=== PATIENT | female | born 1960 | race Caucasian/White ===

== ENCOUNTER → 2020-04-26 10:16 | Outpatient (BNVA) | payer BC, SELFPAY | PROVIDERS: PCP Hospitalist; Visit Provider Student in an Organized Health Care Education/Training Program | DX: Z13.89 Encounter for screening for other disorder (principal) ==

== ENCOUNTER → 2020-05-09 09:51 | Outpatient (BNVA) | payer BC, SELFPAY | PROVIDERS: PCP Hospitalist; Visit Provider Anesthesiology | DX: Z76.89 Persons encountering health services in other specified circumstances (principal) ==

== ENCOUNTER 2020-05-30 12:48 | Outpatient (REF) | payer BC, SELFPAY ==
--- NOTE | 2020-05-30 | US_ITS ---
EXAMINATION: US ABDOMEN COMPLETE CLINICAL INFORMATION: Chronic hepatitis. COMPARISON: Ultrasound abdomen complete 03/03/2019 TECHNIQUE: -time imaging of the abdominal viscera. FINDINGS: PANCREAS: Normal. ABDOMINAL AORTA: The proximal, mid, and distal segments are normal in caliber. INFERIOR VENA CAVA: Visualized portions are normal. LIVER: The liver is normal in size. The liver contour is normal. There is no intrahepatic biliary duct dilatation seen.There is increased liver echogenicity. There is anechoic cyst with septations and calcification in the right hepatic lobe measuring 1.6 x 1.2 x 1.6 cm. No additional lesions seen. GALLBLADDER: Surgically absent. COMMON BILE DUCT: Normal in caliber measuring 0.7 cm in diameter. RIGHT KIDNEY: No hydronephrosis. No renal calculi or focal parenchymal lesions. The kidney measures 10.3 cm in maximum dimension. There is a dromedary hump along the lateral cortex at LEFT KIDNEY: Normal. No hydronephrosis. No renal calculi or focal parenchymal lesions. The kidney measures 9.9 cm in maximum dimension. SPLEEN: Normal. The spleen measures 11.2 cm in maximum dimension. FREE FLUID: None. US/US abdomen complete IMPRESSION: Right hepatic lobe 1.6 cm complex cyst. It is unchanged to previous ultrasound exam 03/03/2019. Diffuse hepatic steatosis. Rest of the abdominal ultrasound is unremarkable.
[2020-05-30 14:14] LABS: MANUAL DIFF FLAG NO
[2020-05-30 14:16] LABS: Basophils Absolute Auto 0.1 X10*3/uL (0.0-0.2); Basophils Percent Auto 0.5 % (0-2); Eosinophils Absolute Auto 0.3 X10*3/uL (0.0-0.4); Eosinophils Percent Auto 2.1 % (0-4); Hematocrit 42.1 % (37-47); Hemoglobin 13.7 g/dl (12.0-16.0); Imm Gran Abs Auto 0.04 X10*3/uL (0.00-0.03); Imm Gran Pct Auto 0.3 % (0.0-0.4); Mean Corpuscular HGB Conc 32.5 g/dl (31.0-35.0); Mean Corpuscular Hemoglobin 31.2 pg (27.0-33.0); Mean Corpuscular Volume 95.9 fL (80-98); Mean Platelet Volume 10.5 fL (9.4-12.3); Monocytes Absolute Auto 0.6 X10*3/uL (0.1-1.2); Monocytes Percent Auto 4.4 % (2-11); Neutrophils Absolute Auto 7.6 X10*3/uL (2.0-8.3); Neutrophils Percent Auto 60.7 % (45-73); Platelet Count 276 X10*3/uL (160-400); Red Blood Count 4.39 X10*6/uL (4.20-5.50); Red Cell Distribution Width 13.5 % (11.0-16.0); White Blood Count 12.6 X10*3/uL (4.8-10.8)
[2020-05-30 14:51] LABS: Alanine Aminotransferase 10 U/L (0-31); Albumin Level 4.7 g/dL (3.5-5.0); Alkaline Phosphatase 74 U/L (39-117); Aspartate Amino Transferase 11 U/L (5-31); Bilirubin Direct 0.2 mg/dL (0.0-0.5); Bilirubin Total 0.4 mg/dL (0.0-1.0); Total Protein 7.5 g/dL (6.5-8.0)
[2020-05-31 11:48] LABS: Alpha Fetoprotein 3.5 ng/mL
[2020-07-18 12:07] LABS: HCV Log PCR <1.18 NOT DETECTED; HepC Viral Load <15 NOT DETECTED
== END 2020-05-30 12:49 | disposition home or self-care (01) ==
LOC: HO.US 12:48
PROVIDERS: Visit Provider Internal Medicine
DX: K73.9 Chronic hepatitis, unspecified (principal); Z87.19 Personal history of other diseases of the digestive system
CPT/HCPCS: 36415; 76700; 80076; 82105; 85025; 87522

== ENCOUNTER 2020-06-12 10:05 | Outpatient (RCR) | payer BC, SELFPAY | END 2020-06-12 13:59 | disposition home or self-care (01) | LOC: HO.PAOS 10:05 | PROVIDERS: Referring Provider Anesthesiology; Visit Provider Counselor Mental Health | DX: F31.81 Bipolar II disorder (principal) ==

== ENCOUNTER → 2020-07-16 09:49 | Outpatient (BNVA) | payer BC, SELFPAY | PROVIDERS: PCP Physician Assistant; Visit Provider Internal Medicine ==

== ENCOUNTER 2020-07-16 10:52 | Outpatient (REF) | payer BC, SELFPAY ==
[2020-07-16 14:48] LABS: Albumin Level 4.5 g/dL (3.5-5.0); Calcium 9.6 mg/dL (8.4-10.2); Phosphorus 3.8 mg/dL (2.7-4.5)
[2020-07-16 15:03] LABS: Free T4 (Free Thyroxine) 1.11 ng/dL (0.71-1.85); Thyroid Stimulating Hormone 1.65 uIU/mL (0.32-4.0); Vitamin D 25-OH Total 14.6 ng/mL (>30)
[2020-07-16 15:32] LABS: Vitamin B12 219 pg/mL (200-900)
[2020-07-18 10:36] LABS: PTHI 52 pg/mL (14-64)
== END 2020-07-16 10:53 | disposition home or self-care (01) ==
LOC: HO.10HDL 10:52
PROVIDERS: Visit Provider Internal Medicine
DX: E21.3 Hyperparathyroidism, unspecified (principal); E03.9 Hypothyroidism, unspecified; E04.2 Nontoxic multinodular goiter; E55.9 Vitamin D deficiency, unspecified
CPT/HCPCS: 36415; 82040; 82306; 82310; 82607; 83970; 84100; 84439; 84443

== ENCOUNTER 2020-07-24 16:27 | Outpatient (REF) | payer BC, SELFPAY ==
--- NOTE | ~2020-07-24 | US_ITS ---
EXAMINATION: US THYROID CLINICAL INFORMATION: Nontoxic multinodular goiter. COMPARISON: Thyroid ultrasound 01/04/2020. TECHNIQUE: Linear transducer michaels-scale and color Doppler examination with attention to the region of the thyroid. FINDINGS: SIZE: Measurements of the thyroid lobes and nodules are given in sagittal, anteroposterior and transverse dimensions respectively. Right Thyroid Lobe: 2.0 x 0.7 x 0.8 cm, volume 0.6 mL. Previously 3.0 x 0.9 x 0.4 cm, volume 0.6 mL. Parenchyma: The gland echotexture is heterogeneous. Thyroid vascularity is normal. Left Thyroid Lobe: 3.6 x 1.2 x 0.9 cm, volume 2.0 mL. Previously 2.7 x 0.8 x 0.5 cm, volume 0.6 mL. Parenchyma: The gland echotexture is heterogeneous. Thyroid vascularity is normal. Isthmus: 0.1 cm in maximum AP dimension. Previously 0.1 cm. Estimated total number of nodules greater than or equal to 1 cm: 0. Display Fabrication Supervisor nodules are described as follows: 1. Location: Right mid pole/medial. Size: 0.3 x 0.1 x 0.1 cm, volume 0.001 mL. Previously: 0.8 x 0.3 x 0.4 cm, volume 0.05 mL. Nodule characteristics: Composition: Solid (2). Echogenicity: Very hypoechoic (3). Shape: Not taller than wide (0). Margins: Smooth (0). Echogenic Foci: None (0). ACR TI-RADS total points: 5 ACR TI-RADS category: 4 Significant change in size (>/= 20% in 2 dimensions and minimal increase of 2 mm or 50% or greater increase in volume): Decrease in the size of the volume. Change in features: None. Change in ACR TI-RADS risk category: None NODES: No lymphadenopathy is seen in the tissue surrounding the thyroid gland. US/US thyroid IMPRESSION: Decrease in the size of the right thyroid nodule. Non suspicious nodule. Small thyroid gland. ACR TI-RADS RECOMMENDATION REFERENCE: Ultrasound-guided fine-needle aspiration, followup ultrasound, no further follow up. TR1 (0 point) and TR 2 (2 points): No FNA or follow up TR3 (3 points): FNA if more than or equal to 2.5 cm in maximum dimension, followup ultrasound in 1, 3 and 5 years if 1.5 to 2.4 cm in maximum dimension. TR4 (4-6 points): FNA if more than or equal to 1.5 cm in maximum dimension, followup ultrasound in 1, 2, 3 and 5 years if 1 to 1.4 cm in maximum dimension. TR5 (more than or equal to 7 points): FNA if more than or equal to 1 cm in maximum dimension, followup ultrasound every year for 5 years if 0.5 to 0.9 cm in maximum dimension. TR3, TR4 or TR5 nodules that are below the size threshold for follow up receive no follow up.
== END 2020-07-24 16:28 | disposition home or self-care (01) ==
LOC: HO.US 16:27
PROVIDERS: Visit Provider Internal Medicine
DX: E04.2 Nontoxic multinodular goiter (principal)
CPT/HCPCS: 76536

== ENCOUNTER 2020-08-03 09:01 | Day surgery (SDC) | payer BC, SELFPAY ==
[2020-07-27 14:56] VITALS: BMI 26.2
--- NOTE | 2020-08-02 10:21 | HO.ANESPROP2 ---
Documented by User: Ruthann Betsy 08/02/20 10:22 HPI - Anesthesia Eval Consult details Narrative: 60yo F for Peripheral Nerve Stimulator Trial, Sacroiliac Joint Innervation *multiple med allergies* PMFSH Active Problems Active Problems: All Active Problems (Updated 07/16/20 @ 10:09 by Anjelica Mclean DO) Hypothyroidism (Acute) Screening for diabetes mellitus (DM) (Acute) Screening for hyperlipidemia (Acute) Bilateral bunions (Acute) Hyperparathyroidism (Acute) Vitamin D deficiency (Acute) Multinodular thyroid (Acute) Sacroiliac joint dysfunction (Acute) Chronic pain syndrome (Acute) Sacroiliitis, not elsewhere classified (Acute) AXEL positive (Acute) Past Medical History Medical History AXEL positive Chronic pain syndrome Hyperparathyroidism Multinodular thyroid Sacroiliac joint dysfunction Sacroiliitis, not elsewhere classified Vitamin D deficiency Family History Family History Father Asthma CVD (cardiovascular disease) Stroke Diabetes Mother Healthy adult Sister Lupus Surgical History Surgical History History of appendectomy History of section History of cholecystectomy History of excision of pilonidal cyst History of foot surgery History of laparoscopy History of tonsillectomy Hx of prior ablation treatment Social History Social History Household Members: Family Alcohol intake: never Smoking Status: Former smoker Advance Directives Information Provided: No Meds Allergies Allergy/AdvReac Type Severity Reaction Status Date / Time Corticosteroids Allergy Severe 'SI' TO Verified 07/16/20 10:05 (Glucocorticoids) STEROIDS. THIS IS FROM UNCODED ALLERGIES Opioids - Morphine Analogues Allergy Intermediate 'HIVES' Verified 07/16/20 10:05 THIS IS FROM UNCODED ALLERGIES oxcarbazepine Allergy Intermediate REDNESS Verified 07/16/20 10:05 [From TRILEPTAL] acetaminophen [Tylenol] Allergy Unknown itching Verified 07/16/20 10:05 aspirin Allergy Unknown stomach Verified 07/16/20 10:05 irritant codeine Allergy Unknown Itching Verified 07/16/20 10:05 NSAIDS (Non-Steroidal Allergy Unknown upset Verified 07/16/20 10:05 Anti-Inflamma stomach opioids Allergy Unknown itching Verified 07/16/20 10:05 ibuprofen AdvReac Unknown Unknown Verified 07/16/20 10:05 prednisone AdvReac Unknown Unknown Verified 07/16/20 10:05 Home Medications Medication Instructions Recorded Confirmed Last Taken Type acetaminophen 650 mg 650 mg PO Q12H 04/26/20 07/16/20 Unknown History tablet,extended release cholecalciferol (vitamin D3) 50 50 mcg PO DAILY 04/26/20 07/16/20 Unknown History mcg (2,000 unit) capsule cyclobenzaprine 10 mg tablet 10 mg PO TID 04/26/20 07/16/20 Unknown History lithium carbonate 450 mg 450 mg PO TID tab 04/26/20 07/27/20 08/03/20 History tablet,extended release loperamide 2 mg capsule 2 mg PO Q6H PRN 04/26/20 07/16/20 Unknown History Exam Exam Date and Time: August 02, 2020 1021 Height,Weight and Vital Signs: Height 5 ft 1 in Weight 63.049 kg Assessment and Plan Assessment Anesthesia Assessment: Chart Reviewed Documented by User: Khloe Rascon 08/03/20 09:15 PMFSH Past Medical History Medical History AXEL positive Chronic pain syndrome Hyperparathyroidism Multinodular thyroid Sacroiliac joint dysfunction Sacroiliitis, not elsewhere classified Vitamin D deficiency Family History Family History Father Asthma CVD (cardiovascular disease) Stroke Diabetes Mother Healthy adult Sister Lupus Surgical History Surgical History History of appendectomy History of section History of cholecystectomy History of excision of pilonidal cyst History of foot surgery History of laparoscopy History of tonsillectomy Hx of prior ablation treatment Social History Social History Household Members: Family Alcohol intake: never Smoking Status: Former smoker Advance Directives Information Provided: No Meds Allergies Allergy/AdvReac Type Severity Reaction Status Date / Time Corticosteroids Allergy Severe 'SI' TO Verified 07/16/20 10:05 (Glucocorticoids) STEROIDS. THIS IS FROM UNCODED ALLERGIES Opioids - Morphine Analogues Allergy Intermediate 'HIVES' Verified 07/16/20 10:05 THIS IS FROM UNCODED ALLERGIES oxcarbazepine Allergy Intermediate REDNESS Verified 07/16/20 10:05 [From TRILEPTAL] acetaminophen [Tylenol] Allergy Unknown itching Verified 07/16/20 10:05 aspirin Allergy Unknown stomach Verified 07/16/20 10:05 irritant codeine Allergy Unknown Itching Verified 07/16/20 10:05 NSAIDS (Non-Steroidal Allergy Unknown upset Verified 07/16/20 10:05 Anti-Inflamma stomach opioids Allergy Unknown itching Verified 07/16/20 10:05 ibuprofen AdvReac Unknown Unknown Verified 07/16/20 10:05 prednisone AdvReac Unknown Unknown Verified 07/16/20 10:05 Home Medications Medication Instructions Recorded Confirmed Last Taken Type acetaminophen 650 mg 650 mg PO Q12H 04/26/20 07/16/20 Unknown History tablet,extended release cholecalciferol (vitamin D3) 50 50 mcg PO DAILY 04/26/20 07/16/20 Unknown History mcg (2,000 unit) capsule cyclobenzaprine 10 mg tablet 10 mg PO TID 04/26/20 07/16/20 Unknown History lithium carbonate 450 mg 450 mg PO TID tab 04/26/20 07/27/20 08/03/20 History tablet,extended release loperamide 2 mg capsule 2 mg PO Q6H PRN 04/26/20 07/16/20 Unknown History Exam Airway Mallampati Class: II TM Dist: >3cm Neck ROM: Full Heart: RRR Lungs: CTA
--- NOTE | ~2020-08-03 | FL_ITS ---
EXAMINATION: XR FLUOROSCOPY WITH IMAGES CLINICAL INFORMATION: Peripheral nerve stimulator trial, sacroiliac COMPARISON: [facility]ACQU[facility] 05/04/2019 TECHNIQUE: Fluoroscopy performed by Dr. René Marie. Fluoroscopy time: 0.7 minutes DAP: 4.14 Gycm2 Images: 2 FINDINGS: There is a stimulator electrode vertically oriented overlying the right sacrum, just lateral to the foramina, tip at S3. FL/FL guidance in OR IMPRESSION: Fluoroscopy for pain management procedure.
[2020-08-03 09:10] VITALS: BP 118/71; PULSE 77; RESP 18; TEMP 36.1; O2SAT 98
[2020-08-03] MEDS: Lactated Ringers 1,000 ML 100 ML IVCONT (09:34)
--- NOTE | 2020-08-03 10:10 | PC.NURSE ---
pt ambulated to br steady gait nad
--- NOTE | 2020-08-03 10:11 | MHC.SHP ---
Pre-Procedural Eval Section A The patient is an INPATIENT: No Changes since office visit: Yes Patient answered all questions The History & Physical has been completed within 30 days and I have reviewed it.: No Section B Chief Complaint: sacroliitis Details of Present Illness: sacroiliitis Relevant Family History (Specify if Yes): No Relevant Social History: None Present Medications: see Short Stay [facility] assessment Medical History: No relevant PMH History of Previous Operations: No relevant previous surgery Allergies: Allergies Allergy/AdvReac Type Severity Reaction Status Date / Time Corticosteroids Allergy Severe 'SI' TO Verified 07/16/20 10:05 (Glucocorticoids) STEROIDS. THIS IS FROM UNCODED ALLERGIES Opioids - Morphine Analogues Allergy Intermediate 'HIVES' Verified 07/16/20 10:05 THIS IS FROM UNCODED ALLERGIES oxcarbazepine Allergy Intermediate REDNESS Verified 07/16/20 10:05 [From TRILEPTAL] acetaminophen [Tylenol] Allergy Unknown itching Verified 07/16/20 10:05 aspirin Allergy Unknown stomach Verified 07/16/20 10:05 irritant codeine Allergy Unknown Itching Verified 07/16/20 10:05 NSAIDS (Non-Steroidal Allergy Unknown upset Verified 07/16/20 10:05 Anti-Inflamma stomach opioids Allergy Unknown itching Verified 07/16/20 10:05 ibuprofen AdvReac Unknown Unknown Verified 07/16/20 10:05 prednisone AdvReac Unknown Unknown Verified 07/16/20 10:05 Review of Systems Sugical H&P ROS: Negative: Constitution, Cardiovascular, Respiratory, Neurological, Psychiatric, Hem-Onc, Allergic/Immunologic, Gastrointestinal, Genitourinary, Musculoskeletal, Integumentary, Endocrine and Eyes/Ears/Nose/Throat Exam Surgical H&P Exam: Normal: HEENT, Normal: Heart, Normal: Lungs, Normal: Extremities, Normal: Abdomen, Normal: Skin and Normal: Neurological Plan Diagnosis/Plan: Unchanged I have reviewed the history and physical and performed a pertinent physical examination on my patient. No changes have occurred unless specified.
[2020-08-03 11:20] VITALS: BP 106/78; PULSE 65; RESP 14; TEMP 36.7; O2SAT 95
--- NOTE | 2020-08-03 11:21 | PM.OP ---
Brief Operative Note Date of Service: 08/03/20 Pre-op diagnosis: sacroiliitis Post-op diagnosis: same Procedure: stimulation stimwave right Sacroiliac joint innervation. Implants: none Surgeon: René Marie MD Anesthesia: MAC Estimated blood loss (mL): 3 Condition: stable Disposition: PACU
--- NOTE | 2020-08-03 11:25 | P.OP_ITS ---
Operative Note Operative Note Date of Service: 08/03/20 Narrative: Ms. Estevez is very pleasant 60 years old lady who came to OR for the trial of sacroiliac joint innervation stimulation- stimwave stimulation. After obtaining informed consent patient was brought to the operating room, She was positioned prone on operating table . [employer] monitors were applied and patient was sedated. Time-out was performed delineating correct site, side, the nature of the procedure, patient's allergy, preoperative antibiotic All operating room staff was participating in OR time-out procedure. She receiced cefasolin 1 g IV approximately 20 minutes before the procedure. Patient's lower back and buttocks were prepped with ChloraPrep and draped with sterile full body fenestrated drape. Sterilely draped C-arm was brought over the operating field and picture of the right sacroiliac joint was demonstrated on the screen. Connection of superior articular process of S1 with sacral alae was chosen as the 1st target of needle insertion. The target projection to the skin was injected with mixture of local anesthetic lidocaine 2% mixed with bupivacaine 0.5%. Using 11 blade scalpel small sangeeta was made on the skin. After that 16 gauge introducer needle was inserted into the sangeeta and under x- ray vision was advanced along right side side side the sacroiliac joint projection on anterior posterior and lateral views. The needle was inserted and advanced in close contact with the sacral bone. The needle remained medial to sacroiliac joint and lateral to the sacral foramina. When needle reached S1 sacral foramina guitar wire was introduced into the needle and advanced until S2-S3 position on the right. Lateral view performed demonstrating position of the introducer outside of the pelvis. After that the guitar wire was removed and stimulating electrode was inserted and advanced into the position S2-S3 foramina is on the right. After that the staring guidewire was removed from the stimulating lead and stimulating copper wire was inserted in. The Mastisol glue and derma teixeira were used to prep the skin and Steri-Strips were used to tape the lead to the skin. The antenna was formed on the skin surface of the back Sterile dressing was applied, stimulating antenna was taped to the stimulating wire. The patient was tolerating procedure well she was taken outside of the operating room to recovery room where she recovered uneventfully. She went home without immediate complications.
[2020-08-03 11:35] VITALS: BP 108/70; PULSE 68; RESP 17; TEMP 36.7; O2SAT 100
[2020-08-03 11:53] VITALS: BP 127/70; PULSE 61; RESP 16; TEMP 36.7; O2SAT 99
== END 2020-08-03 12:27 | disposition home or self-care (01) ==
PROVIDERS: PCP Physician Assistant; Visit Provider Anesthesiology
PROC: (CPT 64555; principal; 2020-08-03 10:30)
DX: M46.1 Sacroiliitis, not elsewhere classified (principal); G89.4 Chronic pain syndrome; M53.3 Sacrococcygeal disorders, not elsewhere classified; Z79.899 Other long term (current) drug therapy; Z88.8 Allergy status to other drugs, medicaments and biological substances; Z87.891 Personal history of nicotine dependence
CPT/HCPCS: 64555; C1897; J0690

== ENCOUNTER → 2020-08-09 11:01 | Outpatient (BNVA) | payer BC, SELFPAY | PROVIDERS: PCP Physician Assistant; Visit Provider Anesthesiology ==

== ENCOUNTER 2020-10-23 08:36 | Outpatient (REF) | payer BC, SELFPAY ==
[2020-10-23 09:57] LABS: MANUAL DIFF FLAG NO
[2020-10-23 10:01] LABS: Basophils Absolute Auto 0.1 X10*3/uL (0.0-0.2); Basophils Percent Auto 0.6 % (0-2); Eosinophils Absolute Auto 0.2 X10*3/uL (0.0-0.4); Eosinophils Percent Auto 1.7 % (0-4); Hematocrit 39.8 % (37-47); Hemoglobin 12.9 g/dl (12.0-16.0); Imm Gran Abs Auto 0.03 X10*3/uL (0.00-0.03); Imm Gran Pct Auto 0.3 % (0.0-0.4); Lymphocytes Absolute Auto 2.7 X10*3/uL (1.2-4.9); Lymphocytes Percent Auto 27.2 % (20-40); Mean Corpuscular HGB Conc 32.4 g/dl (31.0-35.0); Mean Corpuscular Hemoglobin 30.8 pg (27.0-33.0); Mean Platelet Volume 10.5 fL (9.4-12.3); Monocytes Absolute Auto 0.4 X10*3/uL (0.1-1.2); Monocytes Percent Auto 3.7 % (2-11); Neutrophils Absolute Auto 6.5 X10*3/uL (2.0-8.3); Neutrophils Percent Auto 66.5 % (45-73); Platelet Count 300 X10*3/uL (160-400); Red Blood Count 4.19 X10*6/uL (4.20-5.50); Red Cell Distribution Width 13.5 % (11.0-16.0); White Blood Count 9.8 X10*3/uL (4.8-10.8)
[2020-10-23 10:33] LABS: Alanine Aminotransferase < 6 U/L (0-31); Albumin Level 4.3 g/dL (3.5-5.0); Alkaline Phosphatase 72 U/L (39-117); Anion Gap 11 (12-20); Aspartate Amino Transferase 10 U/L (5-31); Bilirubin Total 0.5 mg/dL (0.0-1.0); Blood Urea Nitrogen 15 mg/dL (9-16); C Reactive Protein 0.15 mg/dL (< or = 0.50); Carbon Dioxide 25 mmol/L (22-29); Chloride 108 mmol/L (96-108); Estimated Glomerular Filt Rate > 60; Glucose Random 102 mg/dL (60-115); Potassium 4.6 mmol/L (3.3-5.1); Sodium 139 mmol/L (135-145); Total Protein 6.9 g/dL (6.5-8.0)
[2020-10-23 10:55] LABS: Erythrocyte Sedimentation Rate 12 MM/HR (0-20)
[2020-10-23 11:01] LABS: Glucose Urine UA NEG (NEG); Leukocyte Esterase Urine NEG (NEG); Nitrite Urine NEG (NEG); PH 5.5 (5.0-8.0); Urine Blood NEG (NEG); Urine Ketones NEG (NEG); Urine Protein NEG (NEG-TRACE)
[2020-10-23 11:02] LABS: Appearance Urine HAZY; Color Urine YELLOW
[2020-10-23 11:14] LABS: Bacteria Urine TRACE /LPF; RBC Urine 0-2 /HPF (0); Squamous Epithelial Cell Urine 1+ /LPF; WBC Urine 0-2 /HPF (0-4)
[2020-10-24 11:37] LABS: Complement C3 83 mg/dL (83-193)
[2020-10-24 13:41] LABS: Anti DNA DS Antibody 4 IU/mL; SM/Ribonucleoprotein Ab <1.0 NEG AI (<1.0 NEG); Smith Protein <1.0 NEG AI (<1.0 NEG)
== END 2020-10-23 08:37 | disposition home or self-care (01) ==
LOC: HO.LAB 08:36
PROVIDERS: PCP Physician Assistant; Visit Provider Student in an Organized Health Care Education/Training Program
DX: R76.8 Other specified abnormal immunological findings in serum (principal); M19.041 Primary osteoarthritis, right hand; M19.042 Primary osteoarthritis, left hand
CPT/HCPCS: 36415; 80053; 81001; 85025; 85652; 86140; 86160; 86225; 86235

== ENCOUNTER 2020-10-30 12:16 | Outpatient (REF) | payer BC, SELFPAY ==
--- NOTE | ~2020-10-30 | XR_ITS ---
EXAMINATION: XR HAND, RIGHT CLINICAL INFORMATION: M19.041 - Primary osteoarthritis, right hand. COMPARISON: Radiographs right hand 07/13/2014 TECHNIQUE: The right hand is imaged in 3 views. FINDINGS: There is no fracture, dislocation, or destructive process. Bony mineralization is normal. There is mild negative ulnar variance similar to prior study. The carpus shows no joint narrowing or chondrocalcinosis or erosive change. The pronator quadratus fat pad appears normal. There is borderline joint narrowing 1st carpometacarpal joint. The MCP joints appear normal. The PIP joints are unremarkable. There are degenerative changes index finger DIP joint with joint narrowing and spurring. There is borderline narrowing 5th finger DIP joint. No erosive change. There is small subcortical cyst lateral head 1st metacarpal and small cyst within the ulnar thyroid. XR/XR hand RT min 3V IMPRESSION: 1. Borderline joint narrowing 1st carpometacarpal joint. 2. Osteoarthritic changes index finger DIP joint. Mild narrowing 5th finger DIP joint. 3. No erosive changes.
[2020-10-30 14:10] LABS: Glucose Urine UA NEG (NEG); Leukocyte Esterase Urine NEG (NEG); Nitrite Urine NEG (NEG); Urine Blood NEG (NEG); Urine Ketones NEG (NEG); Urine Protein NEG (NEG-TRACE)
[2020-10-30 14:19] LABS: Appearance Urine CLEAR; Color Urine YELLOW
== END 2020-10-30 12:17 | disposition home or self-care (01) ==
LOC: HO.LAB 12:16
PROVIDERS: PCP Physician Assistant; Referring Provider Student in an Organized Health Care Education/Training Program; Visit Provider Physician Assistant
DX: M19.041 Primary osteoarthritis, right hand (principal); M19.042 Primary osteoarthritis, left hand; R30.0 Dysuria
CPT/HCPCS: 73130; 81003

== ENCOUNTER 2020-10-30 12:51 | Outpatient (RCR) | payer BC, SELFPAY | END 2020-12-21 11:43 | disposition other institution (70) | LOC: HO.OT 12:51 | PROVIDERS: PCP Physician Assistant; Visit Provider Student in an Organized Health Care Education/Training Program | DX: M19.041 Primary osteoarthritis, right hand (principal) | CPT/HCPCS: 29130; 97018; 97165; 97760 ==

== ENCOUNTER → 2020-11-01 13:58 | Outpatient (BNVA) | payer BC, SELFPAY | PROVIDERS: PCP Physician Assistant; Visit Provider Internal Medicine ==

== ENCOUNTER → 2020-12-04 09:31 | Outpatient (BNVA) | payer BC, SELFPAY | PROVIDERS: PCP Physician Assistant; Visit Provider Advanced Practice Midwife ==

== ENCOUNTER 2020-12-21 06:23 | Day surgery (SDC) | payer BC, SELFPAY ==
[2020-12-14 16:10] VITALS: BMI 25.9
--- NOTE | 2020-12-19 13:49 | HO.ANESPROP2 ---
Documented by User: Ruthann Chandlerney 12/19/20 13:50 HPI - Anesthesia Eval Consult details Narrative: 60yo F for Sacroiliac Joint Innervation Stimulation Implant, Right Trial with MAC 07/2020 PMF Active Problems Active Problems: All Active Problems (Updated 12/17/20 @ 11:37 by Cal Cole PA-C) Bipolar disorder (Acute) Pre-op chest exam (Acute) Urinary frequency (Acute) Screening for hypercholesterolemia (Acute) Screening for diabetes mellitus (DM) (Acute) Annual physical exam (Acute) Systolic murmur (Acute) Hypothyroidism (Acute) Screening for diabetes mellitus (DM) (Acute) Screening for hyperlipidemia (Acute) Bilateral bunions (Acute) Osteoarthritis of hands, bilateral (Acute) Encounter for annual routine gynecological examination (Acute) Hyperparathyroidism (Acute) Vitamin D deficiency (Acute) Multinodular thyroid (Acute) Sacroiliac joint dysfunction (Acute) Chronic pain syndrome (Acute) Sacroiliitis, not elsewhere classified (Acute) AXEL positive (Acute) Past Medical History Medical History (Updated 12/17/20 @ 11:37 by Cal Cole PA-C) AXEL positive Asthma Bipolar disorder Chronic pain syndrome Hx of hepatitis C Hyperparathyroidism Low back pain Multinodular thyroid Osteoarthritis Sacroiliac joint dysfunction Sacroiliitis, not elsewhere classified Vitamin D deficiency Family History Family History Father Asthma CVD (cardiovascular disease) Stroke Diabetes Mother Healthy adult Sister Lupus Surgical History Surgical History History of appendectomy History of back surgery History of carpal tunnel release History of section History of cholecystectomy History of excision of pilonidal cyst History of foot surgery History of laparoscopy History of tonsillectomy Hx of prior ablation treatment Social History Social History Household Members: Family Housing: House Alcohol intake: never Patient Tobacco Use Status: Former Tobacco user Tobacco use type: Cigarette Cigarettes Per Day: 20 Years Smoked: 3 e-Cigarette/Vaping Use: Never Used Are you DNR?: No Advance Directives: No Advance Directives Information Provided: No Advance Directives on File: No Current occupational status: disabled Meds Allergies Allergy/AdvReac Type Severity Reaction Status Date / Time oxcarbazepine Allergy Severe Hives,itching,rash, Verified 12/19/20 07:33 [From Trileptal] double vision acetaminophen [Tylenol] Allergy Intermediate Gastrointestinal Verified 12/19/20 07:33 Upset codeine Allergy Mild Itching Verified 12/19/20 07:33 Home Medications Medication Instructions Recorded Confirmed Last Taken Type cholecalciferol (vitamin D3) 50 50 mcg PO DAILY 04/26/20 12/17/20 Unknown History mcg (2,000 unit) capsule lithium carbonate 450 mg 450 mg PO TID tab 04/26/20 12/17/20 08/03/20 History tablet,extended release loperamide 2 mg capsule 2 mg PO Q6H PRN 04/26/20 12/17/20 Unknown History (Anti-Diarrheal (loperamide)) cyclobenzaprine 10 mg tablet 10 mg PO TID PRN 10/23/20 12/17/20 Unknown History aspirin 81 mg tablet,delayed 81 mg PO DAILY 12/14/20 12/17/20 Unknown History release Exam Exam Date and Time: December 19, 2020 1349 Height,Weight and Vital Signs: Height 5 ft 1 in Weight 62.142 kg Pertinent Lab Results Pertinent Lab Results: Laboratory Tests 10/23/20 10/23/20 09:26 09:26 WBC 9.8 Hgb 12.9 Hct 39.8 Plt Count 300 Sodium 139 Potassium 4.6 Chloride 108 Carbon Dioxide 25 BUN 15 Creatinine 0.89 Assessment and Plan Assessment Anesthesia Assessment: Chart Reviewed Documented by User: Fabiana Olsen MD 12/21/20 07:40 [facility] Past Medical History Medical History (Updated 12/17/20 @ 11:37 by Cal Cole PA-C) AXEL positive Asthma Bipolar disorder Chronic pain syndrome Hx of hepatitis C Hyperparathyroidism Low back pain Multinodular thyroid Osteoarthritis Sacroiliac joint dysfunction Sacroiliitis, not elsewhere classified Vitamin D deficiency Family History Family History Father Asthma CVD (cardiovascular disease) Stroke Diabetes Mother Healthy adult Sister Lupus Family history of problems with anesthesia: No Surgical History Surgical History History of appendectomy History of back surgery History of carpal tunnel release History of section History of cholecystectomy History of excision of pilonidal cyst History of foot surgery History of laparoscopy History of tonsillectomy Hx of prior ablation treatment History of Problems with Anesthesia: No Social History Social History Household Members: Family Housing: House Alcohol intake: never Patient Tobacco Use Status: Former Tobacco user Tobacco use type: Cigarette Cigarettes Per Day: 20 Years Smoked: 3 e-Cigarette/Vaping Use: Never Used Are you DNR?: No Advance Directives: No Advance Directives Information Provided: No Advance Directives on File: No Current occupational status: disabled Meds Allergies Allergy/AdvReac Type Severity Reaction Status Date / Time oxcarbazepine Allergy Severe Hives,itching,rash, Verified 12/19/20 07:33 [From Trileptal] double vision acetaminophen [Tylenol] Allergy Intermediate Gastrointestinal Verified 12/19/20 07:33 Upset codeine Allergy Mild Itching Verified 12/19/20 07:33 Home Medications Medication Instructions Recorded Confirmed Last Taken Type cholecalciferol (vitamin D3) 50 50 mcg PO DAILY 04/26/20 12/17/20 Unknown History mcg (2,000 unit) capsule lithium carbonate 450 mg 450 mg PO TID tab 04/26/20 12/17/20 08/03/20 History tablet,extended release loperamide 2 mg capsule 2 mg PO Q6H PRN 04/26/20 12/17/20 Unknown History (Anti-Diarrheal (loperamide)) cyclobenzaprine 10 mg tablet 10 mg PO TID PRN 10/23/20 12/17/20 Unknown History aspirin 81 mg tablet,delayed 81 mg PO DAILY 12/14/20 12/17/20 Unknown History release Exam Height,Weight and Vital Signs: Height 5 ft 1 in Weight 62.142 kg Vital Signs Temp Pulse Resp BP Pulse Ox 12/21/20 06:33 98.3 F 73 16 120/77 97 Airway Mallampati Class: II TM Dist: >3cm Neck ROM: Full Loose/Missing/Broken Teeth: No Heart: RRR Lungs: CTAB Assessment and Plan Assessment Anesthesia Assessment: Anesthesia Plan Discussed Final Anesthetic Review Family History of Problems with Anesthesia: No History of Problems with Anesthesia: No NPO: Yes ASA Class: III Final Preanesthetic Review: No Changes in Pt Med Stat, Meds/Allgs Chart Reviewed, Consent Obtained/Reviewed and Anes Risks/Benef Reviewed Patient Risk: Intermediate Procedure Risk: Low Assessment/Block/Sedation in SS: Assess/Block/Sedation-SS Anesthetic Plan Anesthetic Plan: MAC: Disposition: Standard PACU
--- NOTE | 2020-12-20 17:30 | P.BOP_ITS ---
Brief Operative Note Date of Service: 12/21/20 Pre-op diagnosis: Sacroiliitis, low back pain. Post-op diagnosis: same Procedure: Sacroiliac joint innervation stimulation. Implants: Stim wave stimulating wires to wires on the right side. Surgeon: René Marie MD Anesthesia: MAC Was an Hotel Assistant General Manager used for this Procedure?: No Estimated blood loss (mL): 6 Pathology: none sent Condition: stable Disposition: PACU
--- NOTE | 2020-12-20 17:30 | MHC.SHP ---
Pre-Procedural Eval Section A Date of Service: 12/20/20 The patient is an INPATIENT: No Changes since office visit: Yes Patient answered all questions Section B Chief Complaint: sacroilitis Details of Present Illness: as above Relevant Family History (Specify if Yes): No Relevant Social History: None Present Medications: see Short Stay Collaborative assessment Medical History: No relevant PMH History of Previous Operations: No relevant previous surgery Allergies: Allergies Allergy/AdvReac Type Severity Reaction Status Date / Time oxcarbazepine Allergy Severe Hives,itching,rash, Verified 12/19/20 07:33 [From Trileptal] double vision acetaminophen [Tylenol] Allergy Intermediate Gastrointestinal Verified 12/19/20 07:33 Upset codeine Allergy Mild Itching Verified 12/19/20 07:33 Review of Systems Sugical H&P ROS: Negative: Constitution, Cardiovascular, Respiratory, Neurological, Psychiatric, Hem-Onc, Allergic/Immunologic, Gastrointestinal, Genitourinary, Musculoskeletal, Integumentary, Endocrine and Eyes/Ears/Nose/Throat Exam Surgical H&P Exam: Normal: HEENT, Normal: Heart, Normal: Lungs, Normal: Extremities, Normal: Abdomen, Normal: Skin and Normal: Neurological Plan Diagnosis/Plan: Unchanged I have reviewed the history and physical and performed a pertinent physical examination on my patient. No changes have occurred unless specified.
--- NOTE | ~2020-12-21 | FL_ITS ---
EXAMINATION: XR FLUOROSCOPY WITH IMAGES CLINICAL INFORMATION: Stimulator implant COMPARISON: Fluoroscopy with images 08/03/2020, 12/13/2019 TECHNIQUE: Fluoroscopy performed by Dr. René Marie. Fluoroscopy time: 0.6 minutes DAP: 2.47 Gycm2 Images: 2 FINDINGS: There are 2 electrodes seen overlying the lower right lumbosacral region with electrode tips just medial to lower SI joint. There is electrode fragment also noted overlying the right paraspinal region at L1. FL/FL guidance in OR IMPRESSION: Fluoroscopy for pain management procedure.
[2020-12-21 06:33] VITALS: BP 120/77; PULSE 73; RESP 16; TEMP 36.8; O2SAT 97
[2020-12-21] MEDS: Lactated Ringers 1,000 ML 100 ML IVCONT (06:57)
[2020-12-21 09:09] VITALS: BP 110/68; PULSE 71; RESP 16; TEMP 36.2; O2SAT 99
[2020-12-21 09:18] VITALS: BP 121/68; PULSE 77; RESP 18
--- NOTE | 2020-12-21 09:18 | P.OP_ITS ---
Operative Note Operative Note Date of Service: 12/21/20 Narrative: After obtaining informed consent patient was brought to the operating room, she was positioned prone on the operating table, [employer] monitors were applied and patient was deeply sedated. ?Time-out was performed delineating correct site, side, the nature of the procedure, patient's allergy, preoperative antibiotic.? All operating room staff was participating in OR time-out procedure.? The patient received cefazolin 2 gr. intravenously 30 minutes before the procedure ? After appropriate level of sedation was obtained the patient's entire back? was prepped with ChloraPrep twice. Whole body drape was applied including Ioban film.? Sterilely draped C-arm was brought over the operating field and sq picture of right side of the pelvis was demonstrated on the screen. 4 cm above from the patient's right sacral ala projection the skin was infiltrated in linear vertical fashion and 15 blade scalpel was used to make an horizontal incision on the skin 4 cm long. The wound was widened and deepened intil the superficial layer of thoracolumbar fascia. ? Malleable introducer 16 g 15 cm introducer malleable needle was inserted through the fascia and advanced to the LEFT sacral ala. when the position of the tip of the introducer needle was verified on the lateral view above the level of the bone,? the needle advanced alongside the sacral bone curvature following the direction of the silhouette of the sacroilic joint.? permanent stimulator catheter was inserted and advanced in the needle? When the body of the lead? reached adequate position the stirring stilet was removed from the lead and a conduction copper wire was inserted into the lead and advanced until resistance was met. The introducer needle was withdrawn with care taken not to dislodge the stimulating lead. After that - one more stimulating lead was inserted into slightly more medial position and more proximal position 1 cm to the lateral side from the first stimulating lead using the same technique as described above. The wound was irrigated with vancomycin containing normal saline. After that in the upper right flank local anesthetic was injected into the skin and the vertical 2 cm incision was made using 10 blade scalpel. This wound was widened and deepened using dull dissection and hemostasis was performed using electrocautery. After that this wound was irrigated with vancomycin containing normal saline and? tunneling device was used to connect the two wounds. The tales of the stimulating electrodes were tunneled from the distal wound to the proximal wound and tunneling device was withdrawn. Care was taken to form straight position of the stimulating leads. After that the ends of the plastic leads were tide on itself and then the coil was? formed from the free ends of the? two plastic leads using free silk suture knots. the coil was inserted into the wound. After that both wounds were irrigated again, they were closed using 0-2 polisorb sutures, madhuri were applied to the skin level. Bacitracin ointment was applied on the suture lines and the sterile dressings were affixed on the both wounds. The patient was awaken, transferred to PACU, where she recovered uneventfully. ?
[2020-12-21] MEDS: oxyCODONE HCl Immed Release 5 MG TABLET PO (09:25)
[2020-12-21 09:44] VITALS: BP 117/68; PULSE 63; RESP 20; TEMP 36.2; O2SAT 99
== END 2020-12-21 10:10 | disposition home or self-care (01) ==
PROVIDERS: PCP Physician Assistant; Visit Provider Anesthesiology
PROC: (CPT 64555; principal; 2020-12-21 07:30)
DX: M46.1 Sacroiliitis, not elsewhere classified (principal); M54.5 Low back pain; G89.4 Chronic pain syndrome; M53.3 Sacrococcygeal disorders, not elsewhere classified; M19.90 Unspecified osteoarthritis, unspecified site; R76.0 Raised antibody titer; J45.909 Unspecified asthma, uncomplicated; E55.9 Vitamin D deficiency, unspecified; E04.2 Nontoxic multinodular goiter; E21.3 Hyperparathyroidism, unspecified; Z79.899 Other long term (current) drug therapy; Z88.8 Allergy status to other drugs, medicaments and biological substances; Z87.891 Personal history of nicotine dependence
CPT/HCPCS: 64555 ×2; C1816; J0690; J2250; J3010; J3370

== ENCOUNTER → 2020-12-27 13:21 | Outpatient (BNVA) | payer BC, SELFPAY | PROVIDERS: PCP Physician Assistant; Visit Provider Nurse Practitioner Family ==

== ENCOUNTER → 2021-01-03 10:57 | Outpatient (BNVA) | payer BC, SELFPAY | PROVIDERS: PCP Physician Assistant; Visit Provider Anesthesiology ==

== ENCOUNTER → 2021-01-23 08:21 | Outpatient (BNVA) | payer BC, SELFPAY | PROVIDERS: PCP Physician Assistant; Visit Provider Anesthesiology ==

== ENCOUNTER 2021-01-25 08:13 | Outpatient (REF) | payer BC, SELFPAY ==
--- NOTE | ~2021-01-25 | MM_ITS ---
EXAMINATION: MM SCREENING DIGITAL BREAST TOMOSYNTHESIS, BILATERAL CLINICAL INFORMATION: Screening. Asymptomatic. The lifetime risk of breast cancer based on the Tyrer-Cuzick Model is 4%. COMPARISON: Mammography: 02/02/2020, 10/23/2017, 08/27/2016 TECHNIQUE: Digital breast tomosynthesis is performed in both the craniocaudal and mediolateral oblique views along with computer-aided detection (CAD). Synthesized 2D images are generated from the tomosynthesis. FINDINGS: There are scattered areas of fibroglandular density (ACR BI-RADS breast composition Category b). There are no significant masses, abnormal calcifications, or other abnormalities. Fibronodular parenchymal pattern is similar to prior exams. The axilla and skin contours are unremarkable. No significant changes. MM/MM tomosynthesis screening BI IMPRESSION: No mammographic evidence of malignancy. ASSESSMENT: BI-RADS 1: Negative RECOMMENDATION: Routine annual mammography screening. This patient's information was entered into a reminder system with a target due date for their next mammogram.
== END 2021-01-25 08:14 | disposition home or self-care (01) ==
LOC: HO.MAMMO 08:13
PROVIDERS: Visit Provider Physician Assistant
DX: Z12.31 Encounter for screening mammogram for malignant neoplasm of breast (principal)
CPT/HCPCS: 77063; 77067

== ENCOUNTER 2021-01-25 08:47 | Outpatient (REF) | payer BC, SELFPAY ==
[2021-01-25 10:53] LABS: Estimated Average Glucose 108 mg/dL; Hemoglobin A1c % 5.4 %
[2021-01-25 10:55] LABS: Alanine Aminotransferase 9 U/L (0-31); Albumin Level 4.5 g/dL (3.5-5.0); Alkaline Phosphatase 67 U/L (39-117); Anion Gap 13 (12-20); Aspartate Amino Transferase 10 U/L (5-31); Bilirubin Total 0.4 mg/dL (0.0-1.0); Blood Urea Nitrogen 16 mg/dL (9-16); Calcium 10.4 mg/dL (8.4-10.2); Carbon Dioxide 23 mmol/L (22-29); Chloride 109 mmol/L (96-108); Cholesterol 183 mg/dL; Estimated Glomerular Filt Rate > 60; Glucose Fasting 103 mg/dL (60-99); HDL Cholesterol 40 mg/dL; LDL Cholesterol Calculated 111 mg/dl; Phosphorus 4.4 mg/dL (2.7-4.5); Potassium 4.5 mmol/L (3.3-5.1); Sodium 140 mmol/L (135-145); Total Protein 7.3 g/dL (6.5-8.0); Triglycerides 160 mg/dL
[2021-01-25 11:35] LABS: Free T4 (Free Thyroxine) 0.84 ng/dL (0.71-1.85)
[2021-01-25 12:05] LABS: Vitamin D 25-OH Total 13.4 ng/mL (>30)
[2021-01-27 06:31] LABS: Calcium (PTHI) 10.4 mg/dL (8.6-10.4); PTHI 62 pg/mL (14-64)
== END 2021-01-25 08:48 | disposition home or self-care (01) ==
LOC: HO.10HDL 08:47
PROVIDERS: Absent Provider Internal Medicine; Visit Provider Physician Assistant
DX: Z13.220 Encounter for screening for lipoid disorders (principal); Z13.1 Encounter for screening for diabetes mellitus; E21.3 Hyperparathyroidism, unspecified; E55.9 Vitamin D deficiency, unspecified; E03.9 Hypothyroidism, unspecified; E04.2 Nontoxic multinodular goiter
CPT/HCPCS: 36415; 80053; 80061; 82306; 83036; 83970; 84100; 84439; 84443

== ENCOUNTER → 2021-01-28 13:37 | Outpatient (REF) | payer BC, SELFPAY ==
--- NOTE | 2021-01-28 13:55 | CA_ITS ---
Transthoracic Echocardiogram Patient (Last, First, Middle): Lora Estevez, Gender: Female Date of : 1960 Age: 60 Procedure Date: 01/28/2021 Procedure Type: Transthoracic Echocardiogram Location: OP Height: 154.94 cm Weight: 63.5 kg BSA: 1.62 m2 Heart Rate: bpm BP: 120 / 60 mmHg Web Designer Developer: KAREN Referring MD: Cal Cole PA-C Symptoms: R01.1 - Cardiac murmur, unspecified Study Quality: Good ECG Rhythm: Sinus Conclusions: - The left ventricular systolic function is normal. The calculated ejection fraction is 67% by biplane method. - There is mild calcification of the aortic valve. Findings Left Ventricle Normal left ventricular cavity size. There is normal left ventricular wall thickness. The left ventricular systolic function is normal. The calculated ejection fraction is 67% by biplane method. There is no evidence of regional wall motion abnormalities. Diastolic function is normal for age. Right Ventricle Normal right ventricular cavity size and systolic function. Atria Both atria are normal in size. Aortic Valve There is mild calcification of the aortic valve. There is no aortic valve stenosis. There is no aortic valve regurgitation. Mitral Valve The mitral valve appears normal. There is trace mitral valve regurgitation. There is no mitral valve stenosis. Pulmonic Valve The pulmonic valve was not well visualized. Tricuspid Valve Normal tricuspid valve structure. There is trace tricuspid valve regurgitation. The pulmonary artery systolic pressure is normal. Great Vessels The aortic annulus, sinuses of valsalva, asc aorta, and aortic arch are normal in size. Venous The inferior vena cava is normal in size and collapses greater than 50% with inspiration. Pericardium/Pleural There is no evidence of pericardial effusion. Prior Study Comparison No significant change compared to prior study dated: 03/18/2016. Measurements 2D Linear Measurements IVSd: 0.75 0.6-0.9/0.6-1.0 cm LVIDd: 3.46 3.9-5.3/4.2-5.9 cm LVIDd Index: 2.14 2.4-3.2/2.2-3.1 cm/m2 LVIDs: 2.17 2.0-3.6 cm LVPWd: 0.78 0.7-1.1 cm Ao Root: 3.20 2.1-3.5 cm LA Diam: 2.60 2.7-3.8/3.0-4.0 cm LAIDs Index: 1.60 1.5-2.3 cm/m2 LV Mass: 86.45 67-162/88-224 g LV Mass Index: 53.37 43-95/49-115 g/m2 LVOT Diam: 2.00 3.0+(-)1.3 cm 2D Systolic Function EF 4C: 61.70 >55% EF 2C: 68.10 >55% EF BiP: 66.50 >55% Mitral Valve MV Pk E: 0.63 MV PK A: 0.77 MV Decel Time: 340.00 E/A: 0.80 E'Lateral: 7.62 E'Medial: 5.33 E/E' Med: 11.90 E/E' Lat: 8.30 PHT: 100.00 MVA PHT: 2.20 Decel [place]: 1.87 Aortic Valve AoV Pk Corky: 1.49 AoV Mn Corky: 1.01 AoV VTI: 0.28 AoV Pk Grad: 9.00 Aov Mn Grad: 5.00 NIESHA Cont.VTI: 2.88 LVOT LVOT Pk Corky: 1.40 LVOT Mn Corky: 0.88 LVOT VTI: 0.26 LVOT Pk Grad: 8.00 LVOT Mn Grad: 4.00 LVOT Diam: 2.00 LVOT Area: 3.14 Diastolic Function MV Pk E: 0.63 MV Pk A: 0.77 E/A: 0.80 E'Medial: 5.33 E/E' Med: 11.90 E' Laterial: 7.62 E/E' Lat: 8.30 Right Ventricle TAPSE (mm): 2.04 TVS' Corky: 11.90 Tricuspid Valve TR Pk Corky: 1.49 TR Pk Grad: 9.00 RA Press: 3.00 RVSP: 12.00 Great Vessels Aorta Ao Root-2D: 3.20 2.0-3.7 cm Ao Asc: 3.20 2.1-3.4 cm Ao Arch: 2.70 Updated in Other Vendor System with Status of Final Ahmet Almonte MD electronically signed on 01/28/2021 4:29:38 PM with status of Final
[2021-01-28 14:46] LABS: Albumin Level 4.5 g/dL (3.5-5.0); Calcium 9.9 mg/dL (8.4-10.2)
[2021-01-29 13:41] LABS: Immunoglobulin A 110 mg/dL (70-320)
[2021-01-29 21:26] LABS: Transglutaminase Ab IgG 2 U/mL
[2021-01-31 11:36] LABS: Endomysial IgA Antibody Negative (Negative)
== END ==
LOC: HO.CARD 13:37
PROVIDERS: Absent Provider Internal Medicine; PCP Physician Assistant; Visit Provider Physician Assistant
DX: R01.1 Cardiac murmur, unspecified (principal); E55.9 Vitamin D deficiency, unspecified; E21.3 Hyperparathyroidism, unspecified
CPT/HCPCS: 36415; 82040; 82310; 82784; 83516; 86255; 86256; 93306

== ENCOUNTER → 2021-02-04 08:35 | Outpatient (BNVA) | payer BC, SELFPAY | PROVIDERS: PCP Physician Assistant; Visit Provider Anesthesiology ==

== ENCOUNTER 2022-01-29 10:31 | Outpatient (REF) | payer MEDICARE, SELFPAY ==
--- NOTE | ~2022-01-29 | MM_ITS ---
EXAMINATION: MM SCREENING DIGITAL BREAST TOMOSYNTHESIS, BILATERAL CLINICAL INFORMATION: Screening. Asymptomatic. The lifetime risk of breast cancer based on the Tyrer-Cuzick Model is 5%. COMPARISON: Mammography: 01/25/2021, 02/02/2020, 10/23/2017 TECHNIQUE: Digital breast tomosynthesis is performed in both the craniocaudal and mediolateral oblique views along with computer-aided detection (CAD). Synthesized 2D images are generated from the tomosynthesis. FINDINGS: There are scattered areas of fibroglandular density (ACR BI-RADS breast composition Category b). There is fine fibronodular parenchymal pattern similar to prior exams. There is no interval mass or architectural abnormality. No abnormal calcifications. The axilla and skin contours are unremarkable. No significant changes. MM/MM tomosynthesis screening BI IMPRESSION: No mammographic evidence of malignancy. ASSESSMENT: BI-RADS 1: Negative RECOMMENDATION: Routine annual mammography screening. This patient's information was entered into a reminder system with a target due date for their next mammogram.
[2022-01-29 12:26] LABS: Alanine Aminotransferase 12 U/L (0-31); Albumin Level 4.6 g/dL (3.5-5.0); Alkaline Phosphatase 82 U/L (39-117); Anion Gap 14 (12-20); Aspartate Amino Transferase 12 U/L (5-31); Bilirubin Total 0.5 mg/dL (0.0-1.0); Blood Urea Nitrogen 9 mg/dL (9-16); Calcium 10.1 mg/dL (8.4-10.2); Carbon Dioxide 25 mmol/L (22-29); Chloride 105 mmol/L (96-108); Cholesterol 205 mg/dL; Estimated Glomerular Filt Rate > 60; Glucose Fasting 107 mg/dL (60-99); HDL Cholesterol 33 mg/dL; LDL Cholesterol Calculated 136 mg/dl; Potassium 4.6 mmol/L (3.3-5.1); Sodium 139 mmol/L (135-145); Total Protein 7.5 g/dL (6.5-8.0); Triglycerides 182 mg/dL
[2022-01-29 12:46] LABS: Lithium 0.64 mmol/L (0.60-1.20)
[2022-01-29 13:10] LABS: Vitamin D 25-OH Total 13.8 ng/mL (>30)
[2022-01-30 14:02] LABS: Calcium (PTHI) 10.1 mg/dL (8.6-10.4); PTHI 85 pg/mL (16-77)
== END 2022-01-29 10:32 | disposition home or self-care (01) ==
LOC: HO.MAMMO 10:31
PROVIDERS: PCP Physician Assistant; Visit Provider Physician Assistant
DX: E03.9 Hypothyroidism, unspecified (principal); E21.3 Hyperparathyroidism, unspecified; F31.76 Bipolar disorder, in full remission, most recent episode depressed; Z13.1 Encounter for screening for diabetes mellitus; Z13.220 Encounter for screening for lipoid disorders; Z12.31 Encounter for screening mammogram for malignant neoplasm of breast
CPT/HCPCS: 36415; 77063; 77067; 80053; 80061; 80178; 82306; 83970

== ENCOUNTER 2022-04-19 08:37 | Outpatient (REF) | payer MEDICARE, SELFPAY ==
[2022-04-19 10:09] LABS: Calcium 9.7 mg/dL (8.4-10.2)
[2022-04-19 10:24] LABS: TSH reflex Free T4 1.59 uIU/mL (0.32-4.0)
== END 2022-04-19 08:38 | disposition home or self-care (01) ==
LOC: HO.LAB 08:37
PROVIDERS: PCP Physician Assistant; Visit Provider Physician Assistant
DX: E03.9 Hypothyroidism, unspecified (principal); E21.3 Hyperparathyroidism, unspecified
CPT/HCPCS: 36415; 82310; 84443

== ENCOUNTER 2022-09-02 08:14 | Outpatient (REF) | payer MEDICARE, SELFPAY ==
[2022-09-02 08:24] LABS: MANUAL DIFF FLAG NO
[2022-09-02 08:49] LABS: Basophils Absolute Auto 0.1 X10*3/uL (0.0-0.2); Basophils Percent Auto 0.6 % (0-2); Eosinophils Absolute Auto 0.2 X10*3/uL (0.0-0.4); Eosinophils Percent Auto 2.1 % (0-4); Hematocrit 41.6 % (37.0-47.0); Hemoglobin 13.5 g/dl (12.0-16.0); Imm Gran Abs Auto 0.02 X10*3/uL (0.00-0.03); Imm Gran Pct Auto 0.2 % (0.0-0.4); Lymphocytes Absolute Auto 2.8 X10*3/uL (1.2-4.9); Lymphocytes Percent Auto 26.1 % (20-40); Mean Corpuscular HGB Conc 32.5 g/dl (31.0-35.0); Mean Corpuscular Hemoglobin 30.6 pg (27.0-33.0); Mean Corpuscular Volume 94.3 fL (80.0-98.0); Mean Platelet Volume 10.4 fL (9.4-12.3); Monocytes Absolute Auto 0.5 X10*3/uL (0.1-1.2); Monocytes Percent Auto 4.5 % (2-11); Neutrophils Absolute Auto 7.3 x10*3/uL (2.0-8.3); Neutrophils Percent Auto 66.5 % (45-73); Platelet Count 271 X10*3/uL (160-400); Red Blood Count 4.41 X10*6/uL (4.20-5.50); Red Cell Distribution Width 13.2 % (11.0-16.0); White Blood Count 10.9 X10*3/uL (4.8-10.8)
[2022-09-02 08:59] LABS: INTERNATIONAL NORM RATIO 0.9 (0.9-1.1); Prothrombin Time 10.8 SEC (10.0-13.1)
[2022-09-02 09:26] LABS: Alanine Aminotransferase 8 U/L (0-31); Albumin Level 4.4 g/dL (3.5-5.0); Alkaline Phosphatase 87 U/L (39-117); Anion Gap 9 (12-20); Aspartate Amino Transferase 10 U/L (5-31); Bilirubin Total 0.5 mg/dL (0.0-1.0); Blood Urea Nitrogen 12 mg/dL (9-16); Calcium 9.7 mg/dL (8.4-10.2); Carbon Dioxide 26 mmol/L (22-29); Chloride 110 mmol/L (96-108); Estimated Glomerular Filt Rate > 60; Glucose Random 112 mg/dL (60-115); Potassium 4.5 mmol/L (3.3-5.1); Sodium 140 mmol/L (135-145); Total Protein 6.9 g/dL (6.5-8.0)
[2022-09-02 09:42] LABS: TSH reflex Free T4 1.87 uIU/mL (0.32-4.0)
== END 2022-09-02 08:15 | disposition home or self-care (01) ==
LOC: HO.LAB 08:14
PROVIDERS: PCP Physician Assistant; Visit Provider Nurse Practitioner Family
DX: Z01.812 Encounter for preprocedural laboratory examination (principal); Z13.29 Encounter for screening for other suspected endocrine disorder
CPT/HCPCS: 36415; 80053; 84443; 85025; 85610

== ENCOUNTER 2023-02-11 10:54 | Outpatient (REF) | payer MEDICARE, SELFPAY | END 2023-02-11 10:55 | disposition home or self-care (01) | LOC: HO.MAMMO 10:54 | PROVIDERS: PCP Physician Assistant; Visit Provider Physician Assistant | DX: Z12.31 Encounter for screening mammogram for malignant neoplasm of breast (principal) | CPT/HCPCS: 77063; 77067 ==

== ENCOUNTER → 2023-02-11 11:00 | Outpatient (BNV) | payer MEDICARE, SELFPAY | PROVIDERS: PCP Physician Assistant; Visit Provider Radiology Diagnostic Radiology | DX: Z12.31 Encounter for screening mammogram for malignant neoplasm of breast (principal) | CPT/HCPCS: 77063; 77067 ==

== ENCOUNTER 2023-03-04 09:45 | Outpatient (AMB) | payer MEDICARE, SELFPAY ==
--- NOTE | 2023-03-04 10:11 | MHC.OFFVIS ---
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 Scribed for GIANA Gomez by Saranya Gilliland medical photographer, on 03/04/2023 at 10:38 am EST. Transportation Design Engineer Required: No Information Interpreted: non-clinical & clinical Pewter Finisher: Pewter Finisher Present (Aidyn) Allergies oxcarbazepine [From Trileptal] Allergy (Severe, Verified 03/04/23 10:25) Hives,itching,rash, double vision acetaminophen [Tylenol] Allergy (Intermediate, Verified 03/04/23 10:25) Gastrointestinal Upset codeine Allergy (Mild, Verified 03/04/23 10:25) Itching oral steroid Allergy (Mild, Uncoded 03/04/23 10:25) suicidel Is last menstrual period known: No Post menopausal: Yes Patient : No HPI HPI Comments History of Present Illness Details She is a postmenopausal woman presenting for annual exam. Doing well with no uniform maker concerns. Patient admits she tries to eat a healthy diet including Calcium and Vitamin D. She stays active with exercise. Currently not sexually active. STD testing offered; she declines. Denies vaginal itching and irritation. Denies family hx of breast, colon and ovarian cancer. Last pap smear 04/06/18. Last mammogram 02/11/23. UTD on colonoscopy. PFSH Medical History Osteoarthritis Bipolar disorder Low back pain Asthma Hx of hepatitis C Hyperparathyroidism Vitamin D deficiency Multinodular thyroid Sacroiliac joint dysfunction Chronic pain syndrome Sacroiliitis, not elsewhere classified AXEL positive Surgical History History of bunionectomy History of carpal tunnel release History of back surgery Hx of prior ablation treatment History of excision of pilonidal cyst History of foot surgery History of appendectomy History of laparoscopy History of cholecystectomy History of tonsillectomy History of section Family History Father Asthma CVD (cardiovascular disease) Stroke Diabetes Mother Healthy adult Sister Lupus Social History Household Members: Family Housing: House Alcohol intake: never Patient Tobacco Use Status: Former Tobacco user Quit Date: 1969 Tobacco use type: Cigarette Years Smoked: 3 quit age 18 e-Cigarette/Vaping Use: Never Used service: No Current occupational status: disabled 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 Cognitive needs: No Hearing needs: No Vision needs: Yes Female Reproductive History Menstrual Age of Menarche: 12 control method: none Total pregnancies: 2 Full term: 1 Number of Living Children: 1 Ab spontaneous: 1 Date of last pap smear: 04/06/18 (negative) Date of Mammogram: 02/11/23 Physical Exam Vital Signs: Last Vital Signs BP 102/68 03/04/23 10:14 BMI result Body Mass Index 26.6 Const General: cooperative, healthy appearing, no acute distress, well developed and alert Orientation/consciousness: patient oriented x3 HEENT Head: Yes normal to inspection Eyes General: appearance normal, both eyes and all related structures Neck Neck: Yes normal visual inspection Thyroid: Thyroid normal Chest Chest palpation & inspection: normal inspection of the chest Breast/axilla inspection: normal inspection of the breasts (no puckering, dimpling, peau de orange, retraction, discharge, masses) Breast/axilla palpation: normal palpation of the breasts Resp Effort & Inspection: normal respiratory effort GI Inspection: Yes normal to inspection Palpation (GI): Soft to palpation (to palpation) Rectal Exam - Female: deferred General: Yes bladder normal to inspection External Female Exam: normal external appearance and normal appearance of the urethra Speculum Exam - Vagina: normal appearance of the vagina, normal palpation and vagina atrophic Speculum Exam - Cervix: normal appearance of the cervix, normal palpation and Other cervical findings present (bled slightly with pap) Bimanual exam- vagina & uterus: normal palpation and normal palpation Bimanual Exam- Adnexa, other: normal adnexae and no masses Skin General skin exam: no rashes or lesions noted Neuro General: patient oriented x3 Cognition (Neuro): normal cognition Extrem General: Yes normal to inspection Psych Attitude: cooperative Thought process: Normal thought process present Assessment & Plan Assessment & Plan (1) Encounter for well woman exam: Code(s): Z01.419 - Encounter for gynecological examination (general) (routine) without abnormal findings Plan: Discussed: Current recommendations for pap smears per ASCCP guidelines. Breast awareness and periodic self breast exams. Encouraged yearly mammograms. Maintaining a healthy lifestyle including a well balanced diet including Calcium and Vitamin D and routine exercise. Encouraged patient to sign up for patient portal. Contact office with any PMB. All of her questions and concerns were addressed to the best of my ability. RTO in 1 year for AG. Orders: Orders Pap Smear Today C53.9 - Malignant neoplasm of cervix uteri, unspecified Coding Level of Care Code Est Pt Prev Care 40-64y(64289) Diagnoses Encounter for well woman exam Z01.419
[2023-03-04 10:14] VITALS: BP 102/68; BMI 26.6
== END 2023-03-04 10:48 | disposition home or self-care (01) ==
PROVIDERS: PCP Physician Assistant; Visit Provider Advanced Practice Midwife
DX: Z01.419 Encounter for gynecological examination (general) (routine) without abnormal findings (principal)
CPT/HCPCS: 99396

== ENCOUNTER 2023-03-04 09:45 | Outpatient (REF) | payer MEDICARE, SELFPAY ==
[2023-03-06 22:48] LABS: HPV mRNA E6/E7 rflx Not Detected (Not Detected)
== END 2023-03-04 09:46 | disposition home or self-care (01) ==
LOC: HO.LNP 09:45
PROVIDERS: PCP Physician Assistant; Visit Provider Advanced Practice Midwife
DX: Z01.419 Encounter for gynecological examination (general) (routine) without abnormal findings (principal); C53.9 Malignant neoplasm of cervix uteri, unspecified
CPT/HCPCS: 87624; 88142

== ENCOUNTER 2023-03-24 12:21 | Emergency (ER) | payer MEDICARE, SELFPAY ==
--- NOTE | ~2023-03-24 | CT_ITS ---
EXAMINATION: CT HEAD WITHOUT CONTRAST CLINICAL INFORMATION: Fall head strike COMPARISON: CT head from 01/13/2018 TECHNIQUE: Contiguous axial imaging was performed from the skull base to vertex without intravenous administration of contrast. This CT examination was performed using dose optimization techniques as appropriate, variously including the following: *Automated exposure control *Adjustment of mA and/or kV according to patient size (this includes techniques or standardized protocols for targeted exams where dose is matched to indication/reason for exam; i.e. extremities or head) *Use of iterative reconstruction technique DLP: 805 mGy-cm FINDINGS: There is no evidence of acute intracranial hemorrhage or territorial infarction. No abnormal mass effect or midline shift is seen. Crandall to white matter differentiation is well preserved. No extra-axial fluid collections are identified. The ventricles are normal in size. There is no abnormal attenuation within the brain parenchyma. The osseous structures and soft tissues are normal. The mastoid air cells and visualized portions of the paranasal sinuses are well aerated. CT/CT cervical spine wo IV con IMPRESSION: No acute intracranial pathology. EXAMINATION: Noncontrast CT scan of the cervical spine. INDICATION: Status post fall COMPARISON: None. TECHNIQUE: Helical, multidetector axial images were obtained from the occiput to the upper thorax. Coronal and sagittal reformats of the cervical spine were provided for interpretation. DLP: 805 mGy-cm FINDINGS: No acute fractures or dislocations of the cervical spine are seen. Grade 1 anterolisthesis of C2 on C3 and C3 on C4. Multilevel degenerative changes. Anatomic alignment and positioning of the vertebral bodies and posterior elements is noted. The atlantoaxial joint and craniovertebral articulations are normal without evidence of subluxation. There is no prevertebral soft tissue swelling. The thyroid gland and visualized portions of the lung apices and mediastinum are unremarkable. IMPRESSION: 1. No acute visible fracture or dislocation. 2. Grade 1 anterolisthesis of C2 on C3 and C3 on C4. 3. Multilevel degenerative changes.
--- NOTE | 2023-03-24 12:53 | ED_ITS ---
HPI - General Adult General Chief complaint: Fall Stated complaint: Fall/Neck pain Time Seen by Provider: 03/24/23 16:16 Source: patient and RN notes reviewed Mode of arrival: ambulatory Limitations: no limitations History of Present Illness HPI narrative: This is a 63-year-old female, with a history of BPPV, bipolar disorder, AXEL positive, who presents emergency department after mechanical fall which occurred today. Patient accidentally tripped and fell down 8 stairs. She struck her posterior head on a concrete wall. She did not pass out. She is not on blood thinners. She reports a headache as well as right-sided neck pain. She states that she felt well prior to the fall, no dizziness, changes in her vision, chest pain or shortness of breath. Denies any numbness, tingling or weakness. Denies abdominal pain. She was on the ground for approximately 15 minutes and was able to get up on her own. She has been ambulatory. No other complaints or concerns at this time. MD complaint: head injury Location: head Radiation: non-radiation Pain Consistency: constant Relieving factors: none Exacerbating factors: none Associated symptoms: denies other symptoms Treatments prior to arrival: none Related Data Home Medications Medication Instructions Recorded Confirmed aspirin 81 mg tablet,delayed 81 mg PO DAILY 12/14/20 01/29/22 release cephalexin 500 mg capsule 500 mg PO BID 03/04/23 Previous Rx's Medication Instructions Recorded cholecalciferol (vitamin D3) 50 50 mcg PO DAILY #90 caps 01/29/22 mcg (2,000 unit) capsule levothyroxine 137 mcg tablet 137 mcg PO DAILY 30 days #30 tabs 01/29/22 lithium carbonate 450 mg 450 mg PO TID 90 days #270 tabs 01/29/22 tablet,extended release tamsulosin 0.4 mg capsule 0.4 mg PO DAILY #90 caps 01/29/22 cyclobenzaprine 10 mg tablet 10 mg PO TID PRN Pain 10 days #30 12/02/22 tabs acetaminophen 500 mg tablet 500 mg PO Q6H PRN pain #45 tabs 03/24/23 (Tylenol Extra Strength) Allergies Allergy/AdvReac Type Severity Reaction Status Date / Time oxcarbazepine Allergy Severe Hives,itching,rash, Verified 03/24/23 12:58 [From Trileptal] double vision acetaminophen [Tylenol] Allergy Intermediate Gastrointestinal Verified 03/24/23 12:58 Upset codeine Allergy Mild Itching Verified 03/24/23 12:58 oral steroid Allergy Mild suicidel Uncoded 03/04/23 10:25 Review of Systems Review of Systems: Yes all other systems are reviewed and are negative Constitutional: Constitutional: Reports as per [facility] Past Medical History Attestation statement: The following information was validated with the patient. Medical History (Updated 03/24/23 @ 17:11 by ANNA Jacob) Pre-op chest exam Screening for hypercholesterolemia Screening for diabetes mellitus (DM) Annual physical exam Screening for hyperlipidemia Screening for diabetes mellitus (DM) Osteoarthritis Bipolar disorder Low back pain Asthma Hx of hepatitis C Hyperparathyroidism Vitamin D deficiency Multinodular thyroid Sacroiliac joint dysfunction Chronic pain syndrome Sacroiliitis, not elsewhere classified AXEL positive Surgical History History of bunionectomy History of carpal tunnel release History of back surgery Hx of prior ablation treatment History of excision of pilonidal cyst History of foot surgery History of appendectomy History of laparoscopy History of cholecystectomy History of tonsillectomy History of section Family History Family History Father Asthma CVD (cardiovascular disease) Stroke Diabetes Mother Healthy adult Sister Lupus Social History Social History Household Members: Family Housing: House Alcohol intake: never Patient Tobacco Use Status: Former Tobacco user Quit Date: 1969 Tobacco use type: Cigarette Years Smoked: 3 quit age 18 e-Cigarette/Vaping Use: Never Used Advance Directives: No Advance Directives Information Provided: No service: No Current occupational status: disabled 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 Cognitive needs: No Hearing needs: No Vision needs: Yes Physical Exam ED Vital Signs: Vital Signs - 24 hr 03/24/23 12:54 Temperature 97.6 F Pulse Rate 72 Respiratory Rate 18 Blood Pressure 143/91 H Pulse Oximetry 97 Oxygen Delivery Method Room Air BMI result Body Mass Index 26.9 Const General: cooperative, comfortable and no acute distress Orientation/consciousness: patient oriented x3 Limitations: no limitations HENMT Head: Yes normal to inspection, Yes normocephalic, Yes atraumatic, No Roy's sign, No palpable skull fracture and No periorbital ecchymosis Ears: hearing grossly normal bilaterally and TM's normal bilaterally (No hemotympanum) General nose exam: Normal external nose present Face and sinus: Yes normal facial exam Mouth: Normal oral and palatal mucosa present, oropharynx normal and moist mucous membranes Throat: Yes posterior oropharynx normal Eyes General: appearance normal, both eyes and all related structures Eyelids: Yes eyelids normal Conjunctivae: conjunctivae normal Sclerae: sclerae normal Pupils: Equal, round and reactive pupils present EOM: EOMs intact bilaterally Neck Other: No midline spine tenderness. The tenderness palpation along the right trapezius and right cervical paraspinous muscles with spasm noted. Neck: Yes normal visual inspection, Yes full ROM and Yes no lymphadenopathy Lymphatic: no lymphadenopathy noted Chest Chest palpation & inspection: normal inspection of the chest Resp Effort & Inspection: normal respiratory effort and able to speak in complete sentences Auscultation: clear to auscultation bilaterally, no crackles, no rales, no r honchi and no wheezes Cardio Rate: regular rate Rhythm: regular rhythm Heart sounds: S1 normal heart sound present and S2 normal heart sound present GI Other: Abdomen is soft, nontender, no ecchymosis seen. Inspection: Yes normal to inspection Skin General skin exam: no rashes or lesions noted Trauma: no lacerations or abrasions Wounds: no wounds Neuro General: patient oriented x3 and moves all extremities Cranial nerves: Yes CN's II-XII intact bilaterally and Yes Equal, round and reactive pupils present Cognition (Neuro): normal cognition Gait exam (Neuro): Normal gait present Motor exam (neuro): 5/5 motor strength present throughout and Pronator motor function not present Extrem General: Yes normal to inspection Right upper extremity: normal to inspection Left upper extremity: normal to inspection Right lower extremity: normal to inspection Left lower extremity: normal to inspection Course Course Course Narrative: RME performed by Shawna Villalpando PA-C. Patient is a 63 year old assigned female at presenting to the emergency department with head and neck pain after fall down 8 or 9 stairs. Imaging ordered. Patient placed back in the waiting room pending room availability and results. Medical Decision Making Medical Decision Making MDM Narrative: This is a 63-year-old female presenting to the emergency department with complaints of head and neck pain status post mechanical fall which occurred today. Patient denies any chest pain, shortness of breath, or dizziness prior to the fall. She had no loss of consciousness. She is not on blood thinners. On arrival, vital signs within normal limits. Patient neurologically intact, a head CT and cervical spine CT were ordered out and triage. Head CT unremarkable, cervical spine CT shows degenerative changes, no acute fracture. Discussed findings with patient. Patient with right-sided cervical spasm noted. Patient already on Flexeril, discussed that she can take this as needed, gentle range of motion, and massage is encouraged. Patient given ice pack and Tylenol in department today. Patient is neurologically intact. Discussed return precautions. Patient understands and agrees with plan. Patient stable discharge Differential Diagnosis Differential Diagnoses: The differential diagnosis associated with the presentation includes Closed head injury, ICH, cervical spine fracture, contusion, Admission/Observation Consideration of admission/observation: Escalation of care including admission/observation considered Patient would have been admitted to the hospital had her work up had any findings where hospital admission was appropriate and her clinical presentation warranted hospital admission. Radiology Impression Discussion of test interpretation with radiology: I have reviewed the radiologist's reading. Radiologist Impression: EXAMINATION: Noncontrast CT scan of the cervical spine. INDICATION: Status post fall COMPARISON: None. TECHNIQUE: Helical, multidetector axial images were obtained from the occiput to the upper thorax. Coronal and sagittal reformats of the cervical spine were provided for interpretation. DLP: 805 mGy-cm FINDINGS: No acute fractures or dislocations of the cervical spine are seen. Grade 1 anterolisthesis of C2 on C3 and C3 on C4. Multilevel degenerative changes. Anatomic alignment and positioning of the vertebral bodies and posterior elements is noted. The atlantoaxial joint and craniovertebral articulations are normal without evidence of subluxation. There is no prevertebral soft tissue swelling. The thyroid gland and visualized portions of the lung apices and mediastinum are unremarkable. IMPRESSION: 1. No acute visible fracture or dislocation. 2. Grade 1 anterolisthesis of C2 on C3 and C3 on C4. 3. Multilevel degenerative changes. Dictated By: Morgan Lagos MD Discharge Plan Discharge Clinical Impression: Closed head injury, Cervical paraspinal muscle spasm Patient Disposition: Home, Self-Care Instructions: Head Injury (ED) Additional Instructions: Your head CT was normal. Your neck CT shows degenerative changes. Please take tylenol and your previously prescribed flexeril as needed for symptoms. You may find relief with cold compresses to the back of your head. If any new or worsening symptoms occur including but not limited to worsening dizziness, lightheadedness, weakness or numbness, please return for re- evaluation Prescriptions: New acetaminophen [Tylenol Extra Strength] 500 mg tablet 500 mg PO Q6H PRN (Reason: pain) Qty: 45 0RF No Action cyclobenzaprine 10 mg tablet 10 mg PO TID PRN (Reason: Pain) 10 Days Qty: 30 0RF aspirin [Aspir-81] 81 mg Tablet,Delayed Release (Dr/Ec) 81 mg PO DAILY cholecalciferol (vitamin D3) 50 mcg (2,000 unit) capsule 50 mcg PO DAILY Qty: 90 3RF levothyroxine 137 mcg tablet 137 mcg PO DAILY 30 Days Qty: 30 3RF tamsulosin 0.4 mg capsule 0.4 mg PO DAILY Qty: 90 1RF lithium carbonate 450 mg tablet extended release 450 mg PO TID 90 Days Qty: 270 1RF cephalexin 500 mg capsule 500 mg PO BID
[2023-03-24 12:54] VITALS: BP 143/91; PULSE 72; RESP 18; TEMP 36.4; O2SAT 97; BMI 26.9
--- NOTE | 2023-03-24 15:30 | PC.NURSE ---
Patient fell down concrete steps at approximately 11 this morning. Patient having pain from mid-back to her chin with some feelings of nausea. Patient states that she hit her head but denies LOC. Patient is alert and oriented, answering questions appropriately, no s/s of distress noted.
[2023-03-24] MEDS: Acetaminophen 325 MG TABLET 975 MG PO (17:35)
[2023-03-24 17:44] VITALS: BP 146/84; PULSE 73; RESP 18; O2SAT 99
== END 2023-03-24 17:47 | disposition home or self-care (01) ==
PROVIDERS: Emergency Provider Student in an Organized Health Care Education/Training Program; PCP Physician Assistant
DX: S09.90XA Unspecified injury of head, initial encounter (principal); W10.8XXA Fall (on) (from) other stairs and steps, initial encounter; M62.838 Other muscle spasm; Y93.9 Activity, unspecified; Y92.9 Unspecified place or not applicable; Y99.9 Unspecified external cause status
CPT/HCPCS: 70450; 72125; 99284

== ENCOUNTER 2023-06-24 13:00 | Outpatient (AMB) | payer MEDICARE, SELFPAY ==
[2023-06-24 13:10] VITALS: BP 102/68; PULSE 65; O2SAT 98; BMI 27.9
--- NOTE | 2023-06-24 13:10 | MHC.PC.OV ---
Vital Signs 06/24/23 13:10 Height 5 ft Weight 143 lb 2 oz BMI 27.9 BP 102/68 Blood Pressure Location Lt brachial Position Sitting Pulse 65 Pulse Source Pulse Oximeter Pulse Oximetry (%) 98 Oxygen Delivery Method Room Air Intake Visit Reasons: PE Intake Note: Patient is here today for a physical. 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 Accompanied by: Self / Same As Patient Allergies oxcarbazepine [From Trileptal] Allergy (Severe, Verified 06/24/23 13:18) Hives,itching,rash, double vision acetaminophen [Tylenol] Allergy (Intermediate, Verified 06/24/23 13:18) Gastrointestinal Upset codeine Allergy (Mild, Verified 06/24/23 13:18) Itching oral steroid Allergy (Mild, Uncoded 06/24/23 13:10) suicidel Medication List - Last Reconciled 06/24/23 by Cal Cole PA-C acetaminophen (Tylenol Extra Strength) 500 mg PO Q6H PRN cholecalciferol (vitamin D3) 50 mcg PO DAILY cyclobenzaprine 10 mg PO TID PRN 10 days levothyroxine 137 mcg PO DAILY 30 days lithium carbonate ER 450 mg PO TID 90 days tamsulosin 0.4 mg PO DAILY Tobacco use date assessed: 06/24/23 Fall risk assessment: No Falls in past year Last assessed Fall Risk: 06/24/23 Dental Screening Dental Screen Date: 06/24/23 Did you have a dental visit in the last 12 months?: Yes Did you have a dental problem in the last 6 months where you did not have access to dental care?: No Was dental information given to patient?: Patient has dentist HPI PE HPI Details Patient is a 63 female here today for an annual physical. ??Patient has a past medical history significant hypothyroidism, Chronic pain syndrome SI joint dysfunction, bipolar 1 disorder. .. Hypothroidism: Was followed by jr. systems administrator, Continues on levothyroxine 137 mcg. Recheck TSH to assure normal ? .. Concerns--> reports having GERD symptoms as of late. Has not tried any axbb-obx-fdmhupy anti acid medications r .. Hyperparathyroidism: She has lost her follow-up with Endocrinology, most recent calcium has been stable., Vitamin-D has been low and she has been replaced with vitamin-D supplement. .. SI join dysfunction:? Patient now has a spine event plan placed for her SI joint dysfunction and feels it has reduced her pain. .. Bipolar disorder: Was followed by a psychologist though has not seen him in quite some time. continues on lithium she feels she is stable on her current dose for many years .. Mammo : Mammogram is up-to-date and has been BI-RADS 1 .. Colonoscopy: See Dr almanza, Upcoming appt soon to see GI specialty .. Vaccine :? UTD Tdap, UTD With COVID ( [facility]),? up-to-date with pneumonia vac, Tdap, Shingles PFSH Medical History (Updated 06/29/23 @ 07:35 by Cal Cole PA-C) Pre-op chest exam Screening for hypercholesterolemia Screening for diabetes mellitus (DM) Annual physical exam Screening for hyperlipidemia Screening for diabetes mellitus (DM) Osteoarthritis Bipolar disorder Low back pain Asthma Hx of hepatitis C Hyperparathyroidism Vitamin D deficiency Multinodular thyroid Sacroiliac joint dysfunction Chronic pain syndrome AXEL positive Surgical History History of bunionectomy History of carpal tunnel release History of back surgery Hx of prior ablation treatment History of excision of pilonidal cyst History of foot surgery History of appendectomy History of laparoscopy History of cholecystectomy History of tonsillectomy History of section Family History Father Asthma CVD (cardiovascular disease) Stroke Diabetes Mother Healthy adult Sister Lupus Social History Household Members: Family Housing: House Alcohol intake: never Patient Tobacco Use Status: Former Tobacco user Quit Date: 1969 Tobacco use type: Cigarette Years Smoked: 3 quit age 18 e-Cigarette/Vaping Use: Never Used service: No Current occupational status: disabled 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 1. Little interest or pleasure in doing things: not at all 2. Feeling down, depressed, or hopeless: not at all 3. Trouble falling or staying asleep, or sleeping too much: not at all 4. Feeling tired or having little energy: not at all 5. Poor appetite or overeating: not at all 6. Feeling bad about yourself - or that you are a failure or have let yourself or your family down: not at all 7. Trouble concentrating on things, such as reading the newspaper or watching television: not at all 8. Moving or speaking so slowly that other people could have noticed. Or the opposite - being so fidgety or restless that you have been moving around a lot more than usual: not at all 9. Thoughts that you would be better off or of hurting yourself in some way: not at all Total score: 0 Depression Screening Interpretation: Negative Depression Screening Done: Yes 44244 - PHQ-9 Billing: Yes Source: Developed by Drs. Elier Carrion, Ignacia Weaver, Fermin Lorenzana and colleagues, with an educational woo from [employer]. Thrive Questionnaire Date Thrive assessed: 06/24/23 I am a: Patient What is your living situation today?: I have a steady place to live Within the past 12 months, did the food you bought not last and you didn't have the money to get more?: Never true Within the past 12 months, did you worry whether your food would run out before you got money to buy more?: Never true Do you have trouble paying for medicines?: No Do you have trouble getting transportation to medical appointments?: No Do you have trouble paying your heating and electricity bill?: No Do you have trouble taking care of your child, family member or friend?: No Do you have trouble with day-to-day activities such as bathing, preparing meals, shopping, managing finances, etc.?: No Are you currently unemployed and looking for a job?: No Are you interested in more education?: No Please select the resources that you would like help with: None Currently or been in a relationship where the following occur: no concerns reported THRIVE Score: 0 AUDIT C Alcohol Use Questionnaire (AUDIT-C) 1. How often do you have a drink containing alcohol?: Never 3. How often do you have six or more drinks on one occasion?: Never Total Score: 0 JUVE-7 AMB Questionnaire JUVE-7 Date JUVE - 7 assessed: 06/24/23 Feeling nervous, anxious, or on edge: 0 = Not at all Not being able to stop or control worryin = Not at all Worrying too much about different things: 0 = Not at all Trouble relaxin = Not at all Being so restless that it is hard to sit still: 0 = Not at all Becoming easily annoyed or irritable: 0 = Not at all Feeling afraid as if something awful might happen: 0 = Not at all Total JUVE-7 score (0-4 normal; 5-9 mild; 10-14 moderate; 15-21 severe): 0 Source: Developed by Drs. Elier Carrion, Ignacia Weaver, Fermin Lorenzana and colleagues, with an educational woo from [employer]. JUVE-7 Assessment Billing JUVE-7 Assessment Tool: JUVE-7 Assessment 75810 Review of Systems Const Denies body aches, Denies chills, Denies excessive sweating, Denies fatigue, Denies fever(s) and Denies headache(s) Eyes Denies blurry vision ENT Denies dysphagia, Denies vertigo, Denies dizziness, Denies headache(s), Denies hearing loss and Denies tinnitus Card Denies chest pain, Denies chest pain with activity, Denies syncope, Denies irregular heart rhythm and Denies dyspnea Resp Denies chest congestion, Denies cough, Denies hemoptysis, Denies dyspnea and Denies wheezing GI Denies abdominal pain, Denies melena, Denies hematochezia, Denies coffee ground emesis, Denies dysphagia, Denies diarrhea, Denies nausea and Denies vomiting Denies urinary frequency, Denies dysuria, Denies urinary hesitancy and Denies urinary urgency Musc Denies arthralgias, Denies limited range of motion, Denies muscle cramps and Denies muscle weakness Skin/Breast Denies rash and Denies skin ulcer Neuro Denies Abnormal speech present, Denies confusion, Denies vertigo, Denies dizziness, Denies syncope, Denies headache(s), Denies memory loss and Denies seizure-like activity Psych Denies anxiety, Denies confusion, Denies depression, Denies memory loss, Denies panic attacks and Denies paranoia Endo Denies excessive sweating, Denies fatigue, Denies flushing, Denies polydipsia and Denies polyuria Aller/Immun Denies wheezing Physical exam (Primary Care) Vital Signs: Last Vital Signs Pulse 65 06/24/23 13:10 BP 102/68 06/24/23 13:10 Pulse Ox 98 06/24/23 13:10 Oxygen Delivery Method Room Air 06/24/23 13:10 BMI result Body Mass Index 27.9 Tobacco/Smoking Status: Tobacco use Status Tobacco use date assessed 06/24/23 06/24/23 13:10 Patient Tobacco Use Status Former Tobacco user 06/24/23 13:10 Tobacco use type Cigarette 06/24/23 13:10 e-Cigarette/Vaping Use Never Used 06/24/23 13:10 PHQ-9: PHQ-9 Score PHQ-9: Total score 0 06/24/23 13:18 Depression Screening Interpretation: Negative Thrive Assessment: Date of Thrive Assessment Date Thrive assessed 06/24/23 06/24/23 13:17 Currently or been in a relationship where the following occur: no concerns reported Const General: cooperative, comfortable, no acute distress, alert and awake; No confusion Orientation/consciousness: oriented to person, oriented to place, patient oriented x3 and No confusion HENMT Head: Yes normocephalic Ears: external ears normal and TM's normal bilaterally Face and sinus: No sinus tenderness Mouth: Normal oral and palatal mucosa present and tongue normal Teeth and gingiva: dentition normal and gingiva normal Throat: Yes posterior oropharynx normal, Yes tonsils normal and Yes uvula midline Eyes Conjunctivae: conjunctivae normal Sclerae: sclerae normal Pupils: Equal, round and reactive pupils present EOM: EOMs intact bilaterally Direct Ophthalmoscopy: No no photophobia Neck Neck: Yes no lymphadenopathy, No tender and Yes no JVD Thyroid: Thyroid normal Carotids: no bruits Chest Chest palpation & inspection: no tenderness Resp Effort & Inspection: normal respiratory effort, no audible wheezes, not labored and no stridor Auscultation: no crackles, no rales, no rhonchi and no wheezes Cardio Jugular venous distension: no JVD Rate: regular rate, not bradycardic and not tachycardic Rhythm: regular rhythm Bruits: no carotid bruits Peripheral pulses: Peripheral pulses 2+ throughout GI Inspection: Yes normal to inspection, No abdominal wall ecchymosis and No visible herniation Palpation (GI): Soft to palpation, nontender, no guarding, not rigid and No hepatosplenomegaly present Auscultation: normoactive bowel sounds General: Yes no CVA tenderness Back/Spine/Pelvis Back: no CVA tenderness and No back tenderness Cervical Spine: cervical ROM normal Thoracic/Lumbar Spine: thoracic and lumbar spine normal to inspection, straight leg raise negative bilaterally, No thoraco-lumbar ROM limited and No lumbar spinal tenderness Skin Lesions: no lesions Rashes: no rashes Wounds: no wounds Neuro General: oriented to person, oriented to place, patient oriented x3, CN's II-XI intact bilaterally and No confusion Cranial nerves: Yes Equal, round and reactive pupils present and Yes Normal accommodation reflex present Cognition (Neuro): normal cognition Speech: No Abnormal speech present Gait exam (Neuro): Normal gait present Motor exam (neuro): 5/5 motor strength present throughout Extrem Right upper extremity: full ROM; no cyanosis Left upper extremity: full ROM; no cyanosis Right lower extremity: no edema Left lower extremity: no edema Psych Appearance: grossly normal Mental Status: mental status grossly normal Affect: normal affect Attitude: cooperative Thought process: Normal thought process present Assessment and Plan Assessment & Plan (1) Annual physical exam: Code(s): Z00.00 - Encounter for general adult medical examination without abnormal findings (2) Sacroiliac joint dysfunction: Code(s): M53.3 - Sacrococcygeal disorders, not elsewhere classified Plan: Patient has a permanent spinal stimulator that has drastically reduced her pain. She does use muscle relaxer on a p.r.n. basis (3) Screening for diabetes mellitus (DM): Code(s): Z13.1 - Encounter for screening for diabetes mellitus (4) Hyperparathyroidism: Code(s): E21.3 - Hyperparathyroidism, unspecified Plan: Has lost follow-up with endocrinology. Needs parathyroid hormone and calcium checked. (5) Hypothyroidism: Code(s): E03.9 - Hypothyroidism, unspecified Qualifiers: Hypothyroidism type: unspecified Qualified Code(s): E03.9 - Hypothyroidism, unspecified Plan: Patient continues on levothyroxine 137 mcg. Will recheck TSH to assure normal reading. (6) GERD (gastroesophageal reflux disease): Code(s): K21.9 - Gastro-esophageal reflux disease without esophagitis Qualifiers: Esophagitis presence: without esophagitis Qualified Code(s): K21.9 - Gastro-esophageal reflux disease without esophagitis Plan: Patient has signs symptoms concerning for GERD. Did advise on reducing GI irritant foods and not eating too late at night. Will supply patient with omeprazole to use on a p.r.n. basis for GERD symptoms. (7) Bipolar disorder: Code(s): F31.9 - Bipolar disorder, unspecified Qualifiers: Active/Remission status: in full remission Most recent bipolar episode type: depressed Qualified Code(s): F31.76 - Bipolar disorder, in full remission, most recent episode depressed Plan: She reports her mood has been stable on current dose of lithium for many years. Does not speak with a mental health therapist or psychiatrist at this time and has her PCP managing her lithium medication. Orders: Orders TSH reflex Free T4 06/24/23 E03.9 - Hypothyroidism, unspecified Parathyroid Hormone Intact 06/24/23 E21.3 - Hyperparathyroidism, unspecified Complete Blood Count Auto Diff 06/24/23 K21.9 - Gastro-esophageal reflux disease without esophagitis Medications: New omeprazole 20 mg PO DAILY 30 days 30 caps 2RF K21.9 - Gastro-esophageal reflux disease without esophagitis Changed From levothyroxine 137 mcg PO DAILY 30 days 30 tabs 3RF E03.9 - Hypothyroidism, unspecified To levothyroxine 137 mcg PO DAILY 90 days 90 tabs 2RF E03.9 - Hypothyroidism, unspecified Refilled cholecalciferol (vitamin D3) 50 mcg PO DAILY 90 caps 3RF E21.3 - Hyperparathyroidism, unspecified, R01.1 - Cardiac murmur, unspecified cyclobenzaprine 10 mg PO TID 10 days PRN 30 tabs 0RF Pain M53.3 - Sacrococcygeal disorders, not elsewhere classified tamsulosin 0.4 mg PO DAILY 90 caps 1RF R35.0 - Frequency of micturition lithium carbonate ER 450 mg PO TID 90 days 270 tabs 1RF F31.76 - Bipolar disorder, in full remission, most recent episode depressed Coding Level of Care Code Est Pt Prev Care 40-64y(45503) Diagnoses Annual physical exam Z00.00 Sacroiliac joint dysfunction M53.3 Screening for diabetes mellitus (DM) Z13.1 Hyperparathyroidism E21.3 Hypothyroidism, unspecified type E03.9 Hypothyroidism type: unspecified Gastroesophageal reflux disease without esophagitis K21.9 Esophagitis presence: without esophagitis Bipolar disorder, in full remission, most recent episode depressed F31.76 Active/Remission status: in full remission Most recent bipolar episode type: depressed Additional Codes JUVE-7 Assessment Billing - JUVE-7 Assessment Tool: JUVE-7 Assessment 55727 ([id number])
== END 2023-06-24 13:38 | disposition home or self-care (01) ==
PROVIDERS: PCP Physician Assistant; Visit Provider Physician Assistant
DX: Z00.00 Encounter for general adult medical examination without abnormal findings (principal); F31.76 Bipolar disorder, in full remission, most recent episode depressed; E21.3 Hyperparathyroidism, unspecified; M53.3 Sacrococcygeal disorders, not elsewhere classified; Z13.1 Encounter for screening for diabetes mellitus; E03.9 Hypothyroidism, unspecified; K21.9 Gastro-esophageal reflux disease without esophagitis
CPT/HCPCS: 99396

== ENCOUNTER 2023-08-18 08:42 | Outpatient (REF) | payer MEDICARE, SELFPAY ==
[2023-08-18 09:22] LABS: MANUAL DIFF FLAG NO
[2023-08-18 10:05] LABS: Basophils Absolute Auto 0.1 X10*3/uL (0.0-0.2); Basophils Percent Auto 0.4 % (0-2); Eosinophils Absolute Auto 0.1 X10*3/uL (0.0-0.4); Eosinophils Percent Auto 1.1 % (0-4); Hematocrit 41.4 % (37.0-47.0); Hemoglobin 13.2 g/dl (12.0-16.0); Imm Gran Abs Auto 0.05 X10*3/uL (0.00-0.03); Imm Gran Pct Auto 0.4 % (0.0-0.4); Lymphocytes Absolute Auto 2.9 X10*3/uL (1.2-4.9); Lymphocytes Percent Auto 25.5 % (20-40); Mean Corpuscular HGB Conc 31.9 g/dl (31.0-35.0); Mean Corpuscular Hemoglobin 30.6 pg (27.0-33.0); Mean Corpuscular Volume 96.1 fL (80.0-98.0); Mean Platelet Volume 10.4 fL (9.4-12.3); Monocytes Absolute Auto 0.5 X10*3/uL (0.1-1.2); Monocytes Percent Auto 4.2 % (2-11); Neutrophils Absolute Auto 7.8 x10*3/uL (2.0-8.3); Neutrophils Percent Auto 68.4 % (45-73); Platelet Count 281 X10*3/uL (160-400); Red Blood Count 4.31 X10*6/uL (4.20-5.50); Red Cell Distribution Width 13.2 % (11.0-16.0); White Blood Count 11.4 X10*3/uL (4.8-10.8)
[2023-08-18 11:12] LABS: TSH reflex Free T4 1.77 uIU/mL (0.32-4.0)
[2023-08-18 11:38] LABS: Parathyroid Hormone Intact 102.7 pg/mL (8.7-77.1)
== END 2023-08-18 08:43 | disposition home or self-care (01) ==
LOC: HO.LAB 08:42
PROVIDERS: PCP Physician Assistant; Visit Provider Physician Assistant
DX: E21.3 Hyperparathyroidism, unspecified (principal); E03.9 Hypothyroidism, unspecified; K21.9 Gastro-esophageal reflux disease without esophagitis
CPT/HCPCS: 36415; 83970; 84443; 85025

== ENCOUNTER 2023-12-10 08:54 | Outpatient (REF) | payer MEDICARE, SELFPAY ==
--- NOTE | ~2023-12-10 | US_ITS ---
EXAMINATION: US COMPLETE ABDOMEN WITH LIVER ELASTOGRAPHY CLINICAL INFORMATION: Chronic hepatitis C COMPARISON: None available. TECHNIQUE: Real-time imaging of the abdominal viscera. Noninvasive ultrasound liver fibrosis assessment is performed using Ulises ElastPQ point quantification shear wave elastography (2D-SWE) with a C5-2 MHz transducer. Multiple elastography samples are obtained. FINDINGS: PANCREAS: Normal. The visualized pancreatic head and body are normal in appearance. The remainder of the pancreas is obscured from visualization by the overlying bowel gas. ABDOMINAL AORTA: The proximal, middle, and distal aortic segments are normal in caliber. INFERIOR VENA CAVA: Visualized portions are normal. LIVER: The liver parenchyma appears mildly echogenic. No suspicious liver mass. There is a 1.8 cm septated cyst in the right hepatic lobe for which no imaging follow-up is recommended. The right lobe measures 14.0 cm in length. The left lobe measures 12.2 cm in length. Portal flow is towards the liver (hepatopetal). Shear wave liver elastography median stiffness is 1.3 m/s (reference: normal median stiffness is 1.3 m/s or less). IQR/median stiffness to assess sampling precision is 0.3 (reference: good quality data set is IQR/median stiffness of 0.15 or less). GALLBLADDER: Cholecystectomy. COMMON BILE DUCT: 1.1 cm which may be reservoir effect. RIGHT KIDNEY: New 1.0 cm echogenic mass in the mid right kidney. No hydronephrosis. No renal calculi. The kidney measures 10.1 cm in maximum dimension. LEFT KIDNEY: Normal. No hydronephrosis. No renal calculi or focal parenchymal lesions. The kidney measures 9.3 cm in maximum dimension. SPLEEN: Normal. The spleen measures 11.0 cm in maximum dimension. FREE FLUID: None. US/US abdomen comp w elastography IMPRESSION: 1. Mildly echogenic liver consistent with chronic hepatocellular disease. 2. Liver elastography: Although measurements suggest a high probability of normal liver stiffness, there is statistical variability of the sampling which decreases accuracy. 3. New 1.0 cm echogenic mass in the mid right kidney. While this could be an angiomyolipoma, it would be unusual to develop a new angiomyolipoma in a short timeframe. Recommend further evaluation with CT or MRI abdomen without and with intravenous contrast for more definitive characterization and to exclude renal cell carcinoma. REFERENCE: Society of Radiologists in Ultrasound Liver Stiffness Thresholds (2020): LIVER STIFFNESS THRESHOLDS: *Liver Stiffness equal or less than 1.3 m/s: High probability of being normal. *Liver Stiffness less than 1.7 m/s: In the absence of other known clinical signs, rules out compensated advanced chronic liver disease. *Liver Stiffness 1.7-2.1 m/s: Suggestive of compensated advanced chronic liver disease but need further test for confirmation. *Liver Stiffness over 2.1 m/s: Rules in compensated advanced chronic liver disease. *Liver Stiffness over 2.4 m/s: Suggestive of clinically significant portal hypertension. QUALITY OF DATA SET: *IQR/Median value equal or less than 0.15 implies a quality data set. *IQR/Median value over 0.15 implies a poor quality data set. SIGNIFICANT CHANGE FROM PRIOR EXAM: Significant change if liver stiffness measurement is 10% or greater from prior exam. OTHER CONSIDERATIONS: The stage of liver fibrosis may be overestimated in the setting of acute hepatitis, liver inflammation, elevated liver function tests, hepatic vascular congestion, obstructive cholestasis, non-fasting state, and infiltrative diseases such as amyloidosis and lymphoma. In some patients with NAFLD, the liver stiffness thresholds for compensated advanced chronic liver disease may be lower. In causes other than viral hepatitis and NAFLD, liver stiffness thresholds are not well established.
[2023-12-10 10:30] LABS: MANUAL DIFF FLAG NO
[2023-12-10 11:41] LABS: Basophils Absolute Auto 0.1 X10*3/uL (0.0-0.2); Basophils Percent Auto 0.6 % (0-2); Eosinophils Absolute Auto 0.2 X10*3/uL (0.0-0.4); Eosinophils Percent Auto 1.6 % (0-4); Hematocrit 39.6 % (37.0-47.0); Hemoglobin 12.8 g/dl (12.0-16.0); Imm Gran Abs Auto 0.04 X10*3/uL (0.00-0.03); Imm Gran Pct Auto 0.3 % (0.0-0.4); Lymphocytes Absolute Auto 3.3 X10*3/uL (1.2-4.9); Lymphocytes Percent Auto 26.9 % (20-40); Mean Corpuscular HGB Conc 32.3 g/dl (31.0-35.0); Mean Corpuscular Hemoglobin 31.1 pg (27.0-33.0); Mean Corpuscular Volume 96.1 fL (80.0-98.0); Monocytes Absolute Auto 0.6 X10*3/uL (0.1-1.2); Neutrophils Percent Auto 65.6 % (45-73); Platelet Count 262 X10*3/uL (160-400); Red Blood Count 4.12 X10*6/uL (4.20-5.50); Red Cell Distribution Width 13.3 % (11.0-16.0); White Blood Count 12.1 X10*3/uL (4.8-10.8)
[2023-12-10 11:45] LABS: INTERNATIONAL NORM RATIO 0.9 (0.9-1.1); Prothrombin Time 11.4 SEC (11.1-13.3)
[2023-12-10 12:29] LABS: Alanine Aminotransferase 8 U/L (0-31); Albumin Level 4.3 g/dL (3.5-5.0); Alkaline Phosphatase 75 U/L (39-117); Aspartate Amino Transferase 10 U/L (5-31); Bilirubin Direct 0.1 mg/dL (0.0-0.5); Bilirubin Total 0.3 mg/dL (0.0-1.0); Total Protein 7.1 g/dL (6.5-8.0)
[2023-12-13 11:38] LABS: HCV Log PCR <1.18 NOT DETECTED Log IU/mL (NOT DETECTED); HepC Viral Load <15 NOT DETECTED IU/mL (NOT DETECTED)
[2023-12-14 12:08] LABS: Alpha Fetoprotein 2.1 ng/mL
[2023-12-19 01:19] LABS: FIB-ALT 6 U/L (6-29); FIB-Alpha-2-Macroglobulin 490 mg/dL (106-279); FIB-Apolipoprotein A1 138 mg/dL (101-198); FIB-GGT 13 U/L (3-65); FIB-Haptoglobin 200 mg/dL (43-212); FIB-Total Bilirubin 0.3 mg/dL (0.2-1.2); Liver Fibrosis Score 0.42; Liver Fibrosis Stage F1-F2; Nec Inflam Act Grade A0; Nec Inflam Act Score 0.01
== END 2023-12-10 08:55 | disposition home or self-care (01) ==
LOC: HO.US 08:54
PROVIDERS: PCP Physician Assistant; Visit Provider Internal Medicine
DX: B18.2 Chronic viral hepatitis C (principal); K74.00 Hepatic fibrosis, unspecified
CPT/HCPCS: 36415; 76700; 76981; 80076; 81596; 82105; 85025; 85610; 87522

== ENCOUNTER 2024-02-17 10:41 | Outpatient (REF) | payer MEDICARE, SELFPAY ==
--- NOTE | ~2024-02-17 | MM_ITS ---
EXAMINATION: MM SCREENING DIGITAL BREAST TOMOSYNTHESIS, BILATERAL CLINICAL INFORMATION: Screening. Asymptomatic. COMPARISON: Mammography: Comparison is made with available priors TECHNIQUE: Digital breast mammography with tomosynthesis is performed in both the craniocaudal and mediolateral oblique views along with computer-aided detection (CAD). FINDINGS: The breasts are heterogeneously dense, which may obscure small masses (ACR BI-RADS breast composition Category c). There are no significant masses, abnormal calcifications, or other abnormalities. MM/MM tomosynthesis screening BI IMPRESSION: No mammographic evidence of malignancy. ASSESSMENT: BI-RADS BI-RADS 1 - Negative RECOMMENDATION: Routine annual mammography screening. 1 year F/U This examination should not preclude the clinical evaluation of a suspicious palpable abnormality. This patient's information was entered into a reminder system with a target due date for their next mammogram. Electronically signed by: Arleen Bejarano DO 02/29/2024 12:42 PM EDT
== END 2024-02-17 10:42 | disposition home or self-care (01) ==
LOC: HO.MAMMO 10:41
PROVIDERS: PCP Physician Assistant; Visit Provider Physician Assistant
DX: Z12.31 Encounter for screening mammogram for malignant neoplasm of breast (principal)
CPT/HCPCS: 77063; 77067

== ENCOUNTER → 2024-02-17 11:00 | Outpatient (BNV) | payer MEDICARE, SELFPAY | PROVIDERS: PCP Physician Assistant; Visit Provider Internal Medicine | DX: Z12.31 Encounter for screening mammogram for malignant neoplasm of breast (principal) | CPT/HCPCS: 77063; 77067 ==

== ENCOUNTER 2024-02-22 08:58 | Day surgery (SDC) | payer MEDICARE, SELFPAY ==
[2024-02-18 15:58] VITALS: BMI 25.8
[2024-02-22 09:17] VITALS: BMI 25.1
[2024-02-22 09:37] VITALS: BP 116/69; PULSE 77; RESP 14; TEMP 36.4; O2SAT 95
[2024-02-22] MEDS: Lactated Ringers 1,000 ML 100 ML IVCONT (09:39)
--- NOTE | 2024-02-22 09:55 | P.CONAN_ITS ---
Documented by User: Ruthann Meyer NP 02/19/24 09:30 HPI - Anesthesia Eval Consult details Narrative: 64yo F for Colonoscopy PMFSH Active Problems Active Problems: All Active Problems Abscess of upper eyelid (Acute) Hordeolum externum right eye, unspecified eyelid (Acute) GERD (gastroesophageal reflux disease) (Acute) BPPV (benign paroxysmal positional vertigo) (Acute) Bipolar disorder (Acute) Urinary frequency (Acute) Systolic murmur (Acute) Hypothyroidism (Acute) Bilateral bunions (Acute) Osteoarthritis of hands, bilateral (Acute) Encounter for annual routine gynecological examination (Acute) Hyperparathyroidism (Acute) Vitamin D deficiency (Acute) Multinodular thyroid (Acute) Sacroiliac joint dysfunction (Acute) Chronic pain syndrome (Acute) Past Medical History Medical History Pre-op chest exam Screening for hypercholesterolemia Screening for diabetes mellitus (DM) Annual physical exam Screening for hyperlipidemia Screening for diabetes mellitus (DM) Osteoarthritis Bipolar disorder Low back pain Asthma Hx of hepatitis C Hyperparathyroidism Vitamin D deficiency Multinodular thyroid Sacroiliac joint dysfunction Chronic pain syndrome AXEL positive Family History Family History Father Asthma CVD (cardiovascular disease) Stroke Diabetes Mother Healthy adult Sister Lupus Family history of problems with anesthesia: No Surgical History Surgical History History of bunionectomy History of carpal tunnel release History of back surgery Hx of prior ablation treatment History of excision of pilonidal cyst History of foot surgery History of appendectomy History of laparoscopy History of cholecystectomy History of tonsillectomy History of section History of Problems with Anesthesia: No Social History Social History Household Members: Family Housing: House Are you a primary home health care worker to a significant other at home: No Do you presently have visiting nurse or other home services: No Alcohol intake: never Patient Tobacco Use Status: Former Tobacco user Tobacco use type: Cigarette Years Smoked: 3 quit age 18 e-Cigarette/Vaping Use: Never Used Use of substances other than those prescribed or required for medical reasons: No Have you been hit, kicked, punched, or otherwise hurt by someone within the past year? 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 Cognitive needs: No Hearing needs: No Vision needs: Yes Meds Allergies Allergy/AdvReac Type Severity Reaction Status Date / Time oxcarbazepine Allergy Severe Hives,itching,rash, Verified 02/22/24 09:13 [From Trileptal] double vision acetaminophen [Tylenol] Allergy Intermediate Gastrointestinal Verified 02/22/24 09:13 Upset codeine Allergy Mild Itching Verified 02/22/24 09:13 oral steroid Allergy Mild suicidal Uncoded 02/18/24 15:57 Exam Height,Weight and Vital Signs: Height 5 ft 2 in Weight 63.957 kg Assessment and Plan Assessment Anesthesia Assessment: Chart Reviewed Final Anesthetic Review Family History of Problems with Anesthesia: No History of Problems with Anesthesia: No Documented by User: Mimi Denise DO 02/22/24 09:59 PMFSH Past Medical History Medical History Pre-op chest exam Screening for hypercholesterolemia Screening for diabetes mellitus (DM) Annual physical exam Screening for hyperlipidemia Screening for diabetes mellitus (DM) Osteoarthritis Bipolar disorder Low back pain Asthma Hx of hepatitis C Hyperparathyroidism Vitamin D deficiency Multinodular thyroid Sacroiliac joint dysfunction Chronic pain syndrome AXEL positive Family History Family History Father Asthma CVD (cardiovascular disease) Stroke Diabetes Mother Healthy adult Sister Lupus Family history of problems with anesthesia: No Surgical History Surgical History History of bunionectomy History of carpal tunnel release History of back surgery Hx of prior ablation treatment History of excision of pilonidal cyst History of foot surgery History of appendectomy History of laparoscopy History of cholecystectomy History of tonsillectomy History of section History of Problems with Anesthesia: No Social History Social History Household Members: Family Housing: House Are you a primary home health care worker to a significant other at home: No Do you presently have visiting nurse or other home services: No Alcohol intake: never Patient Tobacco Use Status: Former Tobacco user Tobacco use type: Cigarette Years Smoked: 3 quit age 18 e-Cigarette/Vaping Use: Never Used Use of substances other than those prescribed or required for medical reasons: No Have you been hit, kicked, punched, or otherwise hurt by someone within the past year? 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 Cognitive needs: No Hearing needs: No Vision needs: Yes Meds Allergies Allergy/AdvReac Type Severity Reaction Status Date / Time oxcarbazepine Allergy Severe Hives,itching,rash, Verified 02/22/24 09:13 [From Trileptal] double vision acetaminophen [Tylenol] Allergy Intermediate Gastrointestinal Verified 02/22/24 09:13 Upset codeine Allergy Mild Itching Verified 02/22/24 09:13 oral steroid Allergy Mild suicidal Uncoded 02/18/24 15:57 Exam Exam Date and Time: 02/22/24 0955 Height,Weight and Vital Signs: Height 5 ft 2 in Weight 63.957 kg Vital Signs Temperature 97.6 F 02/22/24 09:37 Pulse Rate 77 02/22/24 09:37 Respiratory Rate 14 02/22/24 09:37 Blood Pressure 116/69 02/22/24 09:37 Pulse Oximetry 95 02/22/24 09:37 Oxygen Delivery Method Room Air 02/22/24 09:37 Temperature 97.6 F 02/22/24 09:37 Pulse Rate 77 02/22/24 09:37 Respiratory Rate 14 02/22/24 09:37 Blood Pressure 116/69 02/22/24 09:37 Pulse Oximetry 95 02/22/24 09:37 Oxygen Delivery Method Room Air 02/22/24 09:37 Airway Mallampati Class: I TM Dist: >3cm Neck ROM: Full Loose/Missing/Broken Teeth: No (patient denies any loose or broken teeth) Heart: S1S2 Lungs: CTAB Assessment and Plan Assessment Anesthesia Assessment: Anesthesia Plan Discussed and Chart Reviewed Final Anesthetic Review Family History of Problems with Anesthesia: No History of Problems with Anesthesia: No NPO: Yes ASA Class: II Final Preanesthetic Review: No Changes in Pt Med Stat, Meds/Allgs Chart Reviewed, Consent Obtained/Reviewed and Anes Risks/Benef Reviewed Patient Risk: Low Procedure Risk: Low Anesthetic Plan Anesthetic Plan: MAC: and Agree w/ Assess. and Plan Disposition: Standard PACU
[2024-02-22 11:11] VITALS: BP 131/76; PULSE 75; RESP 16; TEMP 36.1; O2SAT 97
--- NOTE | 2024-02-22 11:15 | PM.OP ---
Brief Operative Note Date of Service: 02/22/24 Pre-op diagnosis: Screening Post-op diagnosis: other (Colon polyps) Procedure: Colonoscopy to the cecum with cold snare polypectomy x 2 Surgeon: Elier Thompson MD Anesthesia: MAC Was an Java Engineer used for this Procedure?: No Estimated blood loss (mL): 2.0 Pathology: other (A. Polyp at 30cm B. Ascending colon polyp) Condition: stable Disposition: PACU
[2024-02-22 11:25] VITALS: BP 132/78; PULSE 67; RESP 16; O2SAT 97
[2024-02-22 11:40] VITALS: BP 127/80; PULSE 63; RESP 16; O2SAT 97
[2024-02-22 11:55] VITALS: BP 135/78; PULSE 75; RESP 16; TEMP 36.1; O2SAT 97
--- NOTE | 2024-02-22 13:33 | OP_ITS ---
DATE OF SERVICE: 02/22/2024 SURGEON: Elier Thompson MD INDICATIONS: The patient presents for evaluation of colorectal cancer screening and personal history of tubular adenoma of the colon. Full consent has been obtained from her for this, including risks of bleeding and perforation. PREOPERATIVE DIAGNOSIS: Colorectal cancer screening and personal history of tubular adenoma of the colon. POSTOPERATIVE DIAGNOSIS: PROCEDURE PERFORMED: Colonoscopy to cecum with cold snare polypectomy x2. ESTIMATED BLOOD LOSS: COMPLICATIONS: ANESTHESIA: Monitored anesthesia care. ASSISTANTS: SPECIMENS: POSTOPERATIVE DIAGNOSES: Colorectal cancer screening and personal history of tubular adenoma of the colon, small colon polyps, diverticulosis, and internal hemorrhoids. DESCRIPTION OF PROCEDURE: The patient was placed in the left lateral decubitus position. The digital rectal exam revealed no abnormalities. The Olympus video pediatric colonoscope was entered into the rectum and advanced easily to the cecum. Once in the cecum, I did identify normal-appearing cecal pouch with appendiceal orifice and a normal-appearing ileocecal valve. The entire cecum and ileocecal valve appeared normal. The scope was slowly withdrawn assessing all mucosal surfaces carefully. Preparation was excellent. In the proximal ascending colon and at 30 cm were flat, approximately 5 mm polyps, which were each removed by cold snare polypectomy and recovered by suction. The polypectomy sites appeared clean, without any sign of residual polyp nor significant bleeding. I did not visualize any other polyps, colitis, nor angiodysplasia. There was a mild amount of sigmoid diverticulosis. In the rectum, scope was retroflexed visualizing internal hemorrhoids, but no other pathology. The rectal mucosa appeared normal. Scope was straightened and withdrawn from the patient. She tolerated the procedure well and was returned to the recovery area in stable condition. IMPRESSION: 1. Small colon polyps. 2. Diverticulosis. 3. Internal hemorrhoids. PLAN: The results of the pathology will be checked. I would recommend a repeat colonoscopy in 5 years for further surveillance. She was advised to see me in 1 year for followup in regard to the underlying chronic liver disease in relation to previously treated hepatitis C. Of note, I did review with her today the finding on her abdominal ultrasound with a small right renal lesion that was recommended to have follow up with either a CT or MRI. She advised me that she has an appointment with her PCP later this week, and she will speak to him about that as far as ordering a followup study. MD GHANSHYAM Marks/LORI / [id number]
== END 2024-02-22 12:38 | disposition home or self-care (01) ==
PROVIDERS: PCP Physician Assistant; Visit Provider Internal Medicine
PROC: 0DJD8ZZ Inspection of Lower Intestinal Tract, Via Natural or Artificial Opening Endoscopic (ICD-10-PCS; CPT 45378; principal; 2024-02-22 11:40)
DX: Z12.11 Encounter for screening for malignant neoplasm of colon (principal); Z86.0101 Personal history of adenomatous and serrated colon polyps; D12.2 Benign neoplasm of ascending colon; D12.5 Benign neoplasm of sigmoid colon; K57.30 Diverticulosis of large intestine without perforation or abscess without bleeding; K64.8 Other hemorrhoids; Z86.19 Personal history of other infectious and parasitic diseases; K74.00 Hepatic fibrosis, unspecified; N28.9 Disorder of kidney and ureter, unspecified; M79.7 Fibromyalgia; Z79.899 Other long term (current) drug therapy; Z87.891 Personal history of nicotine dependence; Z98.890 Other specified postprocedural states; Z56.0 Unemployment, unspecified
CPT/HCPCS: 45385; 88305; J1596; J2003; J2250; J2405; J2704

== ENCOUNTER 2024-02-24 14:13 | Outpatient (AMB) | payer MEDICARE, SELFPAY ==
--- NOTE | 2024-02-24 14:14 | MHC.PC.OV ---
Vital Signs 02/24/24 14:27 Height 5 ft 2 in Weight 141 lb BMI 25.8 BP 102/70 Blood Pressure Location Lt brachial Position Sitting Pulse 70 Pulse Source Pulse Oximeter Pulse Oximetry (%) 95 Oxygen Delivery Method Room Air Intake Visit Reasons: bladder concerns Cage Unloader Required: No Accompanied by: Self / Same As Patient Allergies oxcarbazepine [From Trileptal] Allergy (Severe, Verified 02/24/24 14:29) Hives,itching,rash, double vision codeine Allergy (Mild, Verified 02/24/24 14:29) Itching oral steroid Allergy (Mild, Uncoded 02/24/24 14:29) suicidal Medication List - Last Reconciled 02/24/24 by Cal Cole PA-C acetaminophen (Tylenol Extra Strength) 500 mg PO Q6H PRN cholecalciferol (vitamin D3) 50 mcg PO DAILY cyclobenzaprine 10 mg PO TID PRN 10 days levothyroxine 137 mcg PO DAILY 90 days lithium carbonate ER 450 mg PO TID 90 days Tobacco use date assessed: 06/24/23 Fall risk assessment: No Falls in past year Last assessed Fall Risk: 02/24/24 Dental Screening Dental Screen Date: 06/24/23 HPI bladder concerns HPI Details Patient is a 64 female here today for a follow-up visit. ??Patient has a past medical history significant hypothyroidism, Chronic pain syndrome SI joint dysfunction, bipolar 1 disorder. Patient recently underwent colonoscopy with her GI specialist. Before colonoscopy she did do an ultrasound of her abdomen which incidentally noted--> New 1.0 cm echogenic mass in the mid right kidney. While this could be an angiomyolipoma, it would be unusual to develop a new angiomyolipoma in a short timeframe. Recommend further evaluation with CT or MRI abdomen without and with intravenous contrast for more definitive characterization and to exclude renal cell carcinoma. Urinary frequency: She also reports she has been suffering with urinary frequency which has been disrupting her sleep over the last 6 months. She has tried tamsulosin though did not notice a difference in her urinary frequency/urgency. [facility] Medical History (Updated 02/24/24 @ 14:34 by Cal Cole PA-C) Pre-op chest exam Screening for hypercholesterolemia Screening for diabetes mellitus (DM) Annual physical exam Screening for hyperlipidemia Screening for diabetes mellitus (DM) Osteoarthritis Bipolar disorder Low back pain Asthma Hx of hepatitis C Hyperparathyroidism Vitamin D deficiency Multinodular thyroid Sacroiliac joint dysfunction Chronic pain syndrome AXEL positive Surgical History History of bunionectomy History of carpal tunnel release History of back surgery Hx of prior ablation treatment History of excision of pilonidal cyst History of foot surgery History of appendectomy History of laparoscopy History of cholecystectomy History of tonsillectomy History of section Family History Father Asthma CVD (cardiovascular disease) Stroke Diabetes Mother Healthy adult Sister Lupus Social History Household Members: Family Housing: House Are you a primary home care aide to a significant other at home: No Do you presently have visiting nurse or other home services: No Alcohol intake: never Patient Tobacco Use Status: Former Tobacco user Tobacco use type: Cigarette Years Smoked: 3 quit age 18 e-Cigarette/Vaping Use: Never Used service: No Current occupational status: disabled 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 Elier Carrion, Ignacia Weaver, Fermin Lorenzana and colleagues, with an educational woo from [employer]. Review of Systems Const Denies headache(s) Eyes Denies loss of vision ENT Denies vertigo, Denies dizziness, Denies headache(s) and Denies sore throat Card Denies chest pain, Denies leg edema and Denies lightheadedness Resp Denies cough, Denies hemoptysis and Denies wheezing GI Denies abdominal pain, Denies melena, Denies constipation, Denies diarrhea and Denies vomiting Reports urinary urgency Musc Denies arthralgias, Denies joint swelling, Denies numbness and Denies tingling Neuro Denies Abnormal speech present, Denies behavioral changes, Denies vertigo, Denies dizziness, Denies headache(s), Denies loss of vision, Denies memory loss, Denies numbness and Denies tingling Psych Denies anxiety, Denies behavioral changes, Denies depression, Denies memory loss and Denies panic attacks Lv/Lymph Denies easy bleeding and Denies easy bruising Aller/Immun Denies wheezing Physical exam (Primary Care) Vital Signs: Last Vital Signs Pulse 70 02/24/24 14:27 BP 102/70 02/24/24 14:27 Pulse Ox 95 02/24/24 14:27 Oxygen Delivery Method Room Air 02/24/24 14:27 BMI result Body Mass Index 25.8 Tobacco/Smoking Status: Tobacco use Status Tobacco use date assessed 06/24/23 02/24/24 14:16 Patient Tobacco Use Status Former Tobacco user 02/24/24 14:16 Tobacco use type Cigarette 02/24/24 14:16 e-Cigarette/Vaping Use Never Used 02/24/24 14:16 Thrive Assessment: Date of Thrive Assessment Date Thrive assessed 06/24/23 02/24/24 14:16 Const General: healthy appearing, no acute distress, alert and awake Nutritional Appearance: well nourished Orientation/consciousness: oriented to person, oriented to place and oriented to time HENMT Ears: TM's normal bilaterally General nose exam: Normal nasal mucous membranes and turbinates present Eyes Conjunctivae: conjunctivae normal Sclerae: sclerae normal Pupils: Equal, round and reactive pupils present Neck Neck: Yes no lymphadenopathy and Yes no JVD Thyroid: Thyroid normal Carotids: no bruits Resp Effort & Inspection: normal respiratory effort and not tachypneic Auscultation: no crackles, no rales, no rhonchi and no wheezes Cardio Rate: regular rate Rhythm: regular rhythm Heart sounds: no murmurs and normal S1 and S2 GI Palpation (GI): Soft to palpation, nontender, no hepatomegaly and no splenomegaly Auscultation: normal bowel sounds Skin General skin exam: no rashes or lesions noted and dry skin Neuro General: oriented to person, oriented to place and oriented to time Cranial nerves: Yes Equal, round and reactive pupils present Speech: No Abnormal speech present Gait exam (Neuro): Normal gait present Motor exam (neuro): no tremor noted Extrem Right upper extremity: full ROM Left upper extremity: full ROM Right lower extremity: full ROM; no edema Left lower extremity: full ROM; no edema Psych Mental Status: mental status grossly normal Speech and movement: Normal speech and movement present Affect: normal affect Attitude: cooperative Thought process: Normal thought process present Office Procedures Flu Questionnaire Does the patient have a severe egg allergy?: No Does the patient have severe life threatening allergies?: No Does the patient have a fever or illness today?: No Has the patient ever had Guillain-[place] Syndrome?: No Has the patient ever had any past reaction to a flu shot?: No Immunizations Fluarix Triv [id number] (PF) 45 mcg (15 mcg x 3)/0.5 mL IM syringe Performing Provider: Cal Cole PA-C [facility] Administered by: ANDREY Levine on 02/24/24 14:31 Dose Route Admin Location Dispensed Lot Number Expiration Date NDC Pottery Striper 0.5 mL IM Left Deltoid 0.5 mL [id number] 11/14/24 94821-594-94 [employer] VIS Given Date VIS Provided VIS Publication Date 02/24/24 Single Vaccine 20 Eligibility Eligibility Date Funding Source Not [facility] Eligible 02/24/24 Private Coding Level of Care Code Est Pt Level 4 (47251) Diagnoses Right kidney mass N28.89 Spastic bladder N32.89 Assessment & Plan Assessment & Plan (1) Right kidney mass: Code(s): N28.89 - Other specified disorders of kidney and ureter Category: Medical Plan: Noted a 1 cm right renal mass on ultrasound. Will send for MRI kidney for better evaluation. Will refer to Urology (2) Spastic bladder: Code(s): N32.89 - Other specified disorders of bladder Category: Medical Plan: Patient reports over last 6 months having urinary frequency and some pelvic pressure. She has tried tamsulosin though did not feel it was helpful. She is willing to try oxybutynin 5 mg extended release for possible spastic bladder. Orders: Orders MR kidney wo/w con Today N28.89 - Other specified disorders of kidney and ureter Basic Metabolic Panel Today N28.89 - Other specified disorders of kidney and ureter [place] Today N32.89 - Other specified disorders of bladder UA CC w/rflx Micro + Cult Today R30.0 - Dysuria, R35.0 - Frequency of micturition Influenza [id number] Immunization Today Z23 - Encounter for immunization Urine Cytology Today R35.0 - Frequency of micturition Referrals Urology Referral N28.89 - Other specified disorders of kidney and ureter Medications: New oxybutynin chloride ER 5 mg PO DAILY 30 days 30 tabs 1RF N32.89 - Other specified disorders of bladder
[2024-02-24 14:27] VITALS: BP 102/70; PULSE 70; O2SAT 95; BMI 25.8
== END 2024-02-24 14:44 | disposition home or self-care (01) ==
PROVIDERS: PCP Physician Assistant; Visit Provider Physician Assistant
DX: N28.89 Other specified disorders of kidney and ureter (principal); N32.89 Other specified disorders of bladder; Z23 Encounter for immunization

== ENCOUNTER 2024-02-24 14:13 | Outpatient (REF) | payer MEDICARE, SELFPAY ==
[2024-02-24 15:51] LABS: Appearance Urine Clear; Color Urine Yellow; Glucose Urine UA Negative (Negative); Leukocyte Esterase Urine Negative (Negative); Nitrite Urine Negative (Negative); PH 5.5 (5.0-9.0); Urine Blood Negative (Negative); Urine Ketones Negative (Negative); Urine Protein Negative (Neg-Trace)
[2024-02-24 16:03] LABS: Anion Gap 11 (12-20); Blood Urea Nitrogen 11 mg/dL (9-16); Calcium 9.5 mg/dL (8.4-10.2); Carbon Dioxide 24 mmol/L (22-29); Chloride 110 mmol/L (96-108); Estimated Glomerular Filt Rate > 60; Glucose Random 105 mg/dL (60-115); Potassium 3.5 mmol/L (3.3-5.1); Sodium 141 mmol/L (135-145)
[2024-02-24 17:39] LABS: Lithium 0.16 mmol/L (0.60-1.20); Urine Cytology See Pathology rpt
== END 2024-02-24 14:14 | disposition home or self-care (01) ==
LOC: HO.LAB 14:13
PROVIDERS: PCP Physician Assistant; Visit Provider Physician Assistant
DX: N28.89 Other specified disorders of kidney and ureter (principal); R30.0 Dysuria; R35.0 Frequency of micturition; N32.89 Other specified disorders of bladder; Z23 Encounter for immunization
CPT/HCPCS: 36415; 80048; 80178; 81003; 88112; 90471; 90656; 99212

== ENCOUNTER → 2024-03-24 13:37 | Outpatient (BNV) | payer MEDICARE, SELFPAY | PROVIDERS: PCP Physician Assistant; Visit Provider Radiology Diagnostic Radiology | DX: N28.89 Other specified disorders of kidney and ureter (principal) | CPT/HCPCS: 74183 ==

== ENCOUNTER 2024-03-24 13:38 | Outpatient (REF) | payer MEDICARE, SELFPAY ==
--- NOTE | ~2024-03-24 | MR_ITS ---
EXAMINATION: MR ABDOMEN WITHOUT AND WITH CONTRAST CLINICAL INFORMATION: Other specified disorders of the kidneys and ureters. Right renal lesion. COMPARISON: Correlated to ultrasound dated December 10, 2023. TECHNIQUE: MR abdomen was performed without and with use of 6.5 mL intravenous Gadavist gadolinium contrast without reported immediate complications.. Postcontrast images are performed in multiphase dynamic sequences. Imaging was performed in 3 planes. FINDINGS: Submitted for interpretation on 04/01/2024. Minimal paramagnetic field distortion secondary to metallic hardware in the right lower lumbar region. LUNG BASES: No signal abnormality or enhancing lesion. LIVER, GALLBLADDER, AND BILIARY TREE: Liver measures 15 cm. There is a 1.5 cm well-defined, lobulated and likely septated, nonenhancing fluid signal characteristic lesion at the gallbladder fossa region. Mild intrahepatic biliary ductal dilatation. The portal vein and hepatic veins and intrahepatic portion of the IVC are patent. . Cholecystectomy. Common bile duct measures 10 mm with a pencil shaped pattern near the junction with the second portion duodenum. PANCREAS: No focal pancreatic mass. No peripancreatic collection. No main pancreatic ductal dilatation. SPLEEN: 10 cm. No focal mass. ADRENAL GLANDS: No nodular lesions. KIDNEYS AND URETERS: RIGHT KIDNEY: 3 mm nonenhancing fluid signal characteristic lesion in the posterior upper pole. Normal enhancement pattern of the renal cortex and medulla. No enhancing mass. No hydronephrosis. Renal vessels are patent. No enhancing lesion in the perinephric/pararenal compartment. No lymphadenopathy in the renal hilum. LEFT KIDNEY: No renal mass. No hydronephrosis. Normal enhancing renal cortex and medulla. Normal enhancement of the renal vessels. No lymphadenopathy in the renal hilum. GASTROINTESTINAL TRACT: No intestinal obstruction pattern. No ascites. ABDOMINAL WALL: No gross umbilical hernia. LYMPH NODES: No lymphadenopathy, retroperitoneal or mesenteric. VASCULAR: No aneurysm or dissection, abdominal aorta. Plaques in the infrarenal distal abdominal aorta. OSSEOUS STRUCTURES: Multilevel thoracolumbar spondylosis more conspicuous at T8-9 and L5-S1 levels. Grade 1 anterolisthesis T8-9 and L3-4. . MR/MR abdomen wo/w con IMPRESSION: Bosniak type I cyst, right kidney. Questionable stricture at the sphincter of Oddi resulting in mild to moderate intra and extrahepatic biliary ductal dilatation. Septated cystic lesion, right hepatic lobe. Electronically signed by: Reed Hill MD 04/01/2024 03:19 PM EST RP
[2024-03-24] MEDS: gadobutroL 7.5 ML VIAL IVPUSH (14:28)
== END 2024-03-24 13:39 | disposition home or self-care (01) ==
LOC: HO.MRI 13:38
PROVIDERS: PCP Physician Assistant; Visit Provider Physician Assistant
DX: N28.89 Other specified disorders of kidney and ureter (principal)
CPT/HCPCS: 74183; A9585

== ENCOUNTER 2024-08-09 14:03 | Outpatient (AMB) | payer OTHER, SELFPAY ==
--- NOTE | 2024-08-09 14:15 | A.OFFVIS_ITS ---
Vital Signs 08/09/24 14:17 Height 5 ft 2 in Weight 134 lb BMI 24.5 BP 100/66 Intake Visit Reasons: Left breast pain Student Financial Aid Manager: Student Financial Aid Manager Present (Vandana) Allergies oxcarbazepine [From Trileptal] Allergy (Severe, Verified 08/09/24 14:15) Hives,itching,rash, double vision codeine Allergy (Mild, Verified 08/09/24 14:15) Itching oral steroid Allergy (Mild, Uncoded 02/24/24 14:29) suicidal HPI Comments Details: Patient is here today with concerns of left breast pain for the last 3 weeks, she denies any injuries, surgery, or FH of breast cancer. Admits to having the flu a month ago with coughing symptoms, she denies any difficulty with breathing or pain while breathing. Overall the pain is during movements even driving the car or wearing clothing. [facility] Medical History (Updated 08/09/24 @ 14:42 by Ghislaine Garcia CNM) Breast pain, left Pre-op chest exam Screening for hypercholesterolemia Screening for diabetes mellitus (DM) Annual physical exam Screening for hyperlipidemia Screening for diabetes mellitus (DM) Osteoarthritis Bipolar disorder Low back pain Asthma Hx of hepatitis C Hyperparathyroidism Vitamin D deficiency Multinodular thyroid Sacroiliac joint dysfunction Chronic pain syndrome AXEL positive Surgical History History of bunionectomy History of carpal tunnel release History of back surgery Hx of prior ablation treatment History of excision of pilonidal cyst History of foot surgery History of appendectomy History of laparoscopy History of cholecystectomy History of tonsillectomy History of section Family History Father Asthma CVD (cardiovascular disease) Stroke Diabetes Mother Healthy adult Sister Lupus Social History Household Members: Family Housing: House Are you a primary sub acute care nurse to a significant other at home: No Do you presently have visiting nurse or other home services: No Alcohol intake: never Patient Tobacco Use Status: Former Tobacco user Tobacco use type: Cigarette Years Smoked: 3 quit age 18 e-Cigarette/Vaping Use: Never Used service: No Current occupational status: disabled 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 Cognitive needs: No Hearing needs: No Vision needs: Yes Female Reproductive History Menstrual Age of Menarche: 12 Review of Systems Const All systems reviewed & are unremarkable except as noted in HPI and below Reports no additional complaints Skin/Breast Reports system reviewed and no additional complaints, except as documented and Reports as per HPI Physical Exam Vital Signs: Last Vital Signs BP 100/66 08/09/24 14:17 BMI result Body Mass Index 24.5 Const General: cooperative, healthy appearing and no acute distress Chest Other: Patient describes the area of tenderness located from 6 o'clock to 9 o'clock position Breast/axilla inspection: normal inspection of the breasts and normal inspection of the axillae Breast/axilla palpation: normal palpation of the breasts Skin General skin exam: no rashes or lesions noted Assessment & Plan Assessment & Plan (1) Breast pain, left: Code(s): N64.4 - Mastodynia Category: Medical Plan Discuss plan of care to obtain bilateral diagnostic mammogram and left side breast ultrasound. Consider costochondritis due to coughing inflammation, we will need to follow up with her PCP. Reviewed comfort care measures for inflammation. Await results for plan of care follow up in person call sooner if needed. The patient expressed understanding and agreement with the plan of care. All of her questions and concerns were addressed to the best of my ability. This note is constructed using voice recognition software. While every effort has been made to ensure accuracy, salvager errors may have been included. Orders: Orders MM tomosynthesis diagnostic BI Today N64.4 - Mastodynia, Z12.31 - Encounter for screening mammogram for malignant neoplasm of breast US breast LT limited Today N64.4 - Mastodynia Coding Level of Care Code Est Pt Level 3 (50590) Diagnoses Breast pain, left N64.4
[2024-08-09 14:17] VITALS: BP 100/66; BMI 24.5
--- OUTSIDE RECORDS SUMMARY | 2024-08-09 17:33 | XMS_ITS ---
Author Organization [facility] Address [address] [place] [phone] Care Team Providers Care Military Source Operations Specialist Name Role Phone Cal Cole Primary Care Provider Unavailab Elier Roass [phone] REASON FOR VISIT Renal lesion/ update Encounters Encounter Location Date Provider Diagnosis [facility] [address] [place] [phone] 02/21/2024 Elier Thompson Plan Of Treatment No Information Progress Notes * TIFFANY LOMASOB:[birth year] (64 yo F)Acc No.[id number]:02/21/2024 Patient:?GUIDO LOMAS :1960???Age:64 Y???Sex:Female Address:[address] [place] [address] * true * Date:? Generated for Printi ng/Gordo/eTransmitting on:?08/09/2024 05:32 PM EDT
--- OUTSIDE RECORDS SUMMARY | 2024-08-09 17:33 | XMS_ITS | Patient Health Record ---
[facility] Address [address] [place] [address] Care Team Providers Care Hooker Off Name Role Phone Cal Cole Primary Care Provider Unavailab Brooke Bridges Unavailable [phone] Allergies Allergen (clinical drug ingredient) Drug/Non Drug Allergy documented on EMR Reaction Allergy Type Onset Date Status Azithromycin stomach pain Drug Allergy A ctive Biaxin stomach pain Drug Allergy Acti ve erythromycin Erythromycin stomach pain Drug Allergy Active oxcarbazepine Trileptal redness, double vision Drug Allergy Active acetaminophen Acetaminophen Unknown Drug Allergy Active codeine Codeine itching, nausea Drug Allergy Active oxcarbazepine Oxcarbazepine Unknown Drug Allergy Active Reason For Referral No Information Medications Medication SIG (Take, Route, Frequency, Duration) Notes Start Date End Date Status Tamsulosin HCl 0.4 MG 1 capsule Orally O nce a day for 30 day(s) Active Flexeril 10 mg Active Aspirin 81 MG 1 tablet Orally Once a day for 30 day(s) Not-Taking Night Splint AFO - L1930 1 wear when at rest for 30 days Active Physical Therapy . . . 2-3x/week for 3- 4 weeks 11/06/2022 Not-Taking Vitamin D3 50 MCG (1999 UT) 1 capsule Or ally Once a day for 30 day(s) Active Levothyroxine Sodium 137 MCG/ML 1 mL in the morning before breakfast Orally Once a day for 30 day(s) Active Sterrett Carbonate ER 450 MG 1 tablet at bedtime Orally Once a day for 30 day(s) Active Cyclobenzaprine HCl 10 MG 1 tablet at be dtime as needed Orally Once a day for 30 day(s) Not-Taking Cephalexin 500 MG 1 capsule Orally twice a day for 10 days 10/16/2022 Not-Taking Walker - as directed Not-Hema corrales oxyCODONE HCl 5 MG 1 tablet as needed Orally every 6 hrs for 3 days 09/18/2022 Not-Taking Social History Tobacco Use: Social History Observation Description Date Details (start date - stop date) Former Smoker 05/18/1966 - 05/18/1969 Tobacco Use/Smoking Question Answer Notes Are you a: former smoker When did you start smoking? 05/18/1966 When did you stop smoking? 05/18/1969 Alcohol Screen Question Answer Notes Did you have a drink containing alcohol in the p ast year? No Points 0 Interpretation Negative Tobacco use other than smoking: Question Answer Notes Are you an other tobacco user? No Problems Problem Type SNOMED Code ICD Code Onset Dates Problem Status W/U Status Risk Notes Problem Acquired hammer toe of right foot (7377477585501333) Other hammer toe(s) (acquired), right foot (M20.41) Active confirmed Problem Acquired hallux valgus (16139234) Hallux valgus (acquired), left foot (M20.12) Active confirmed Problem Acquired hammer toe of left foot (5654688169582924) Other hammer toe(s) (acquired), left foot (M20.42) Active confirmed Problem Acquired hallux valgus (22381255) Hallux valgus (acquired), right foot (M20.11) Active confirmed Decision for Hospitalizat ion/WCC/Tracie r surgery (5),Rx drug management Problem Acquired hammer toe of right foot (6710295305768407) Other hammer toe(s) (acquired), right foot (M20.41) Active confirmed Problem Acquired hammer toe of left foot (7230086499552219) Other hammer toe(s) (acquired), left foot (M20.42) Active confirmed Problem 014368310 Hammer toe of right foot (M20.41) Active confirmed Problem 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 Plan Of Treatment Pending Test Test Name Order Date X ray : Foot, right 3V 11/19/2022 Insurance Providers Payer Name Payer Address Payer Phone Subscriber Number Group Number Insured Name Patient Relationship to Insured Coverage Start Date Coverage End Date [employer] Medicare Adv-[id number] [address] [address] [place] [address] [id number] Lora Estevez Self - patient is the insured Medical (General) History Medical History History ICD Code Bipolar disorder Hypothyroidism Chronic Pain Syndrome Hepatitis C Joint dysfunction thyroid nodule AXEL + asthma osteoarthritis Back,Hip,and Knee pain Broken bones Depression Gall bladder problems Neuropathy Psychiatric disorder Sciatica thyroid Joint implants/screws Transfusions Surgical History Surgery Date(Month/Year) appendectomy wire implants in back 2019 carpal tunnel surgery 02/1978 cholecystectomy 1984 pilonidal cyst excision foot surgery - bunion and hardware 2016 Laparoscopy tonsillectomy 1986 Ablation treatment spinal cord stimulator Claudio w/ orif right 09/24/2022
--- OUTSIDE RECORDS SUMMARY | 2024-08-09 17:33 | XMS_ITS ---
Author Organization [facility] Address [address] [place] [phone] Care Team Providers Care Estimator And Drafter Supervisor Name Role Phone Cal Cole Primary Care Provider Unavailab Elier Rosas [phone] REASON FOR VISIT ins change/diphen/atrop not covered Encounters Encounter Location Date Provider Diagnosis [facility] [address] [place] [phone] 08/04/2024 Elire Thompson Plan Of Treatment No Information Progress Notes * TIFFANY LOMASOB:[birth year] (64 yo F)Acc No.[id number]:08/04/2024 Patient:?GUIDO LOMAS :1960???Age:64 Y???Sex:Female Address:[address] [place] [id number] * * Date:?
--- OUTSIDE RECORDS SUMMARY | 2024-08-09 17:33 | XMS_ITS ---
Author Organization [facility] Address [address] [place] [address] Care Team Providers Care Log Yard Derrick Operator Name Role Phone Cal Cole Primary Care Provider Unavailab Elier Rsoas Unavailable [phone] REASON FOR VISIT screening,hx polyps Problems Problem Type SNOMED Code ICD Code Onset Dates Problem Status W/U Status Risk Notes Problem Diverticular disease of colon (544514930) Diverticulosis of large intestine without perforation or abscess without bleeding (K57.30) Active confirmed Encounters Encounter Location Date Provider Diagnosis [facility] [address], [place] [phone] 02/22/2024 Elier Thompson Colon cancer scree bob [...] Notes * TIFFANY LOMASOB:[birth year] (64 yo F)Acc No.[id number]:02/22/2024 COLON WITH MAC Patient:?GUIDO LOMAS Provider:?Elier Thompson MD :1960???Age:64 Y???Sex:Female D ate:02/22/2024 Address:[address] [place], [place] [id number] Pcp:Cal Cole Subjective: * Chief Complaints: * ???1. Screening,hx polyps. * Medical History:? Objective: * Vitals:? Assessment: * Assessment: 1.?Colon cancer screening - Z12.11 (Primary)???2.?Colon polyps - K63.5???3.?Diverticulosis of large intestine without perforation or abscess without bleeding - K57.30???4.?Other hemorrhoids - K64.8??? Plan: * Treatment: * Procedure Codes:?87046 LESIO N REMOVAL COLONOSCOPY, Modifiers: PT , 0529F INTRVL 3+YRS PTS CLNSCP DOCD, Modifiers: 8P , 0528F RCMND FLW-UP 10 YRS DOCD, Modifiers: 1P * * The named appointment provid er may or may not be the originator of this progress note, and it is not deemed complete until electronically signed by the appointment provider. Sign off status: Pending * Provider:?Elier Thompson MD Date:? 024 Generated for Tani corrales/Gordo/Nevinitting on:?08/09/2024 05:33 PM EDT
== END 2024-08-10 08:15 | disposition home or self-care (01) ==
LOC: HO.HWS 14:03
PROVIDERS: PCP Physician Assistant; Visit Provider Advanced Practice Midwife
DX: N64.4 Mastodynia (principal)
CPT/HCPCS: 99213

== ENCOUNTER 2024-08-24 11:25 | Outpatient (AMB) | payer MEDICARE, SELFPAY ==
--- NOTE | 2024-08-24 11:26 | A.OFFVIS_ITS ---
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 She is doing well with packing house laborer concerns: Anxious regarding waiting for breast imaging scheduled this month, due to the left breast pain she has experienced over the last month. She feels something is often different from the other breast. Currently not sexually active. Denies any vaginal dryness or irritation. STI testing offered; she declined. Attempting to eat a healthy diet with calcium and vitamin D and stays active with exercise. Last pap smear; 2022, negative. Last mammogram; 2023. Colonoscopy is UTD. Denies any family history of breast, ovarian or colon cancer. [facility] Medical History Breast pain, left Pre-op chest exam Screening for hypercholesterolemia Screening for diabetes mellitus (DM) Annual physical exam Screening for hyperlipidemia Screening for diabetes mellitus (DM) Osteoarthritis Bipolar disorder Low back pain Asthma Hx of hepatitis C Hyperparathyroidism Vitamin D deficiency Multinodular thyroid Sacroiliac joint dysfunction Chronic pain syndrome AXEL positive Surgical History History of bunionectomy History of carpal tunnel release History of back surgery Hx of prior ablation treatment History of excision of pilonidal cyst History of foot surgery History of appendectomy History of laparoscopy History of cholecystectomy History of tonsillectomy History of section Family History Father Asthma CVD (cardiovascular disease) Stroke Diabetes Mother Healthy adult Sister Lupus Social History Household Members: Family Housing: House Are you a primary rn critical care to a significant other at home: No Do you presently have visiting nurse or other home services: No Alcohol intake: never Patient Tobacco Use Status: Former Tobacco user Tobacco use type: Cigarette Years Smoked: 3 quit age 18 e-Cigarette/Vaping Use: Never Used Patient : No service: No Current occupational status: disabled 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 Cognitive needs: No Hearing needs: No Vision needs: Yes Female Reproductive History Menstrual Age of Menarche: 12 Total pregnancies: 2 Full term: 1 Ab spontaneous: 1 Date of last pap smear: 03/04/23 (negative pap smear, negative hpv) Date of Mammogram: 02/17/24 (bi rad 1) Review of Systems Const All systems reviewed & are unremarkable except as noted in HPI and below Reports as per HPI Eyes Reports no additional complaints ENT Reports no additional complaints Card Reports no additional complaints Resp Reports no additional complaints GI Reports as per HPI and Reports no additional complaints Reports as per HPI Musc Reports no additional complaints Skin/Breast Reports as per HPI Neuro Reports no additional complaints Psych Reports no additional complaints Endo Reports no additional complaints Lv/Lymph Reports no additional complaints Aller/Immun Reports no additional complaints Physical Exam Vital Signs: Last Vital Signs BP 124/80 08/24/24 11:33 BMI result Body Mass Index 24.5 Const General: cooperative, healthy appearing, no acute distress, well developed and alert Orientation/consciousness: patient oriented x3 HEENT Head: Yes normal to inspection Eyes General: appearance normal, both eyes and all related structures Neck Neck: Yes normal visual inspection Thyroid: Thyroid normal Chest Other: Slight tenderness noted over her left breast between 6 and 09:00 position Chest palpation & inspection: normal inspection of the chest and other (no puckering, dimpling, peau de orange, retraction, discharge, masses) Breast/axilla inspection: normal inspection of the breasts Breast/axilla palpation: normal palpation of the breasts Resp Effort & Inspection: normal respiratory effort GI Inspection: Yes normal to inspection Palpation (GI): Soft to palpation Rectal Exam - Female: deferred General: Yes bladder normal to palpation External Female Exam: normal external appearance and normal appearance of the urethra Speculum Exam - Vagina: normal appearance of the vagina, normal palpation, normal vaginal discharge and vagina atrophic Speculum Exam - Cervix: normal appearance of the cervix and normal palpation Bimanual exam- vagina & uterus: normal bimanual exam, normal palpation, uterine size normal, bladder normal to palpation, normal palpation and non-tender Bimanual Exam- Adnexa, other: no masses Skin General skin exam: no rashes or lesions noted Rashes: no rashes Neuro General: patient oriented x3 Cognition (Neuro): normal cognition Extrem General: Yes normal to inspection Psych Attitude: cooperative Thought process: Normal thought process present Assessment & Plan Assessment & Plan (1) Encounter for annual routine gynecological examination: Code(s): Z01.419 - Encounter for gynecological examination (general) (routine) without abnormal findings Category: Medical Plan Discussed: Current recommendations for pap smears per ASCCP guidelines. Breast awareness, periodic self breast exams and yearly mammogram. Follow up pending diagnostic imaging appointment has been scheduled. Report any changes in the breast. Maintain a healthy lifestyle, well balanced diet including Calcium 1,200 mg and Vitamin D 600 IU daily, and routine exercise. Contact the office with any postmenopausal bleeding. Patient verbalizes understanding and agrees to the plan of care. She was given opportunity to ask questions and all questions were answered to the best of my ability. RTO in 1 year for annual packing house laborer exam. This note is constructed using voice recognition software. While every effort has been made to ensure accuracy, information systems security developer errors may have been included. Coding Level of Care Code Est Pt Prev Care >65y(57454) Diagnoses Encounter for annual routine gynecological examination Z01.419
[2024-08-24 11:33] VITALS: BP 124/80; BMI 24.5
--- OUTSIDE RECORDS SUMMARY | 2024-08-24 13:29 | XMS_ITS | Patient Health Record ---
[facility] Address [address] [place] [address] Care Team Providers Care Knitter Wire Mesh Name Role Phone Cal Cole Primary Care Provider Unavailab Brooke Bridges Unavailable [phone] Allergies Allergen (clinical drug ingredient) Drug/Non Drug [...] Once a day for 30 day(s) Active [place] Carbonate ER 450 MG 1 tablet at [...] Problem Acquired hammer toe of right foot (7281443727010194) Other hammer toe(s) (acquired), right foot (M20.41) Active confirmed Problem Acquired hallux valgus (57134602) Hallux valgus (acquired), left foot (M20.12) Active confirmed Problem Acquired hammer toe of left foot (3257501589213194) Other hammer toe(s) (acquired), left foot (M20.42) Active confirmed Problem Acquired hallux valgus (99528140) Hallux valgus (acquired), right foot (M20.11) Active confirmed Decision for Hospitalizat ion/WCC/Tracie r surgery (5),Rx drug management Problem Acquired hammer toe of right foot (7611310356191073) Other hammer toe(s) (acquired), right foot (M20.41) Active confirmed Problem Acquired hammer toe of left foot (9741626998573860) Other hammer toe(s) (acquired), left foot (M20.42) Active confirmed Problem 411331152 Hammer toe of right foot (M20.41) Active confirmed Problem Juvenile osteochondrosis of the foot (285743458) 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
--- OUTSIDE RECORDS SUMMARY | 2024-08-24 13:30 | XMS_ITS ---
Author Organization [facility] Address [address] [place] [address] Care Team Providers Care Sorority Supervisor Name Role Phone Cal Cole Primary Care Provider Unavailab Elier Rosas Unavailable [phone] REASON FOR VISIT screening,hx polyps Problems Problem Type SNOMED Code ICD Code Onset Dates Problem Status W/U Status Risk Notes Problem Diverticular disease of colon (281896899) Diverticulosis of large intestine without perforation or abscess without bleeding (K57.30) Active confirmed Encounters Encounter Location Date Provider Diagnosis [facility] Outpatient [address] [place], [place] [id number] 02/22/2024 Elier Thompson Colon cancer scree bob [...] Notes * TIFFANY LOMASOB:[birth year] (64 yo F)Acc No.[id number]:02/22/2024 COLON WITH MAC Patient:?GUIDO LOMAS Provider:?Elier Thompson MD :1960???Age:64 Y???Sex:Female D ate:02/22/2024 Address:[address] [place], [place] [id number] Pcp:Cal Cole Subjective: * Chief Complaints: * ???1. Screening,hx polyps. * Medical History:? Objective: * Vitals:? Assessment: * Assessment: 1.?Colon cancer screening - Z12.11 (Primary)???2.?Colon polyps - K63.5???3.?Diverticulosis of large intestine without perforation or abscess without bleeding - K57.30???4.?Other hemorrhoids - K64.8??? Plan: * Treatment: * Procedure Codes:?58759 LESIO N REMOVAL COLONOSCOPY, Modifiers: PT , [...] MD Date:? 024 Generated for Tani corrales/Gordo/Nevinitting on:?08/24/2024 01:30 PM EDT
--- OUTSIDE RECORDS SUMMARY | 2024-08-24 13:30 | XMS_ITS ---
Author Organization [facility] Address [address] [place] [phone] Care Team Providers Care Industrial Maintenance Millwright Name Role Phone Cal Cole Primary Care Provider Unavailab Elier Rosas [phone] REASON FOR VISIT ins change/diphen/atrop not covered/waiting on pt call back. Encounters Encounter Location Date Provider Diagnosis [facility] [address] [facility] [address] [place] [phone] 08/04/2024 Elier Thompson Plan Of Treatment No Information Progress Notes * TIFFANY LOMASOB:[birth year] (64 yo F)Acc No.[id number]:08/04/2024 Patient:?ABEBEJOEL :1960???Age:64 Y???Sex:Female Address:[address] [place] [address] * true * Date:? Generated for Robeli antoni/Gordo/eTransmitting on:?08/24/2024 01:29 PM EDT
--- OUTSIDE RECORDS SUMMARY | 2024-08-24 13:30 | XMS_ITS ---
Author Organization [facility] Address [address] [place] [address] Care Team Providers Care Supervisor Alum Plant Name Role Phone Cal Cole Primary Care Provider Unavailab Elier Rosas [phone] REASON FOR VISIT script /diphen/atrop - will be using good Rx Encounters Encounter Location Date Provider Diagnosis [facility] [address] [place] [phone] 08/10/2024 Elier Thompson Plan Of Treatment No Information Progress Notes * TIFFANY LOMASOB:[birth year] (64 yo F)Acc No.[id number]:08/10/2024 Patient:?GUIDO LOMAS :1960???Age:64 Y???Sex:Female Address:[address] [place] [address] * true * Date:? Generated for Printi antoni/Gordo/eTransmitting on:?08/24/2024 01:30 PM EDT
== END 2024-08-24 13:09 | disposition home or self-care (01) ==
LOC: HO.HWS 11:25
PROVIDERS: PCP Physician Assistant; Visit Provider Advanced Practice Midwife
DX: Z01.419 Encounter for gynecological examination (general) (routine) without abnormal findings (principal)
CPT/HCPCS: 99397; 99459

== ENCOUNTER → 2024-08-24 11:25 | Outpatient (BNVA) | payer MEDICARE, SELFPAY | PROVIDERS: PCP Physician Assistant; Visit Provider Advanced Practice Midwife | DX: Z01.419 Encounter for gynecological examination (general) (routine) without abnormal findings (principal) | CPT/HCPCS: 99397; 99459 ==

== ENCOUNTER 2024-09-01 10:48 | Outpatient (REF) | payer MEDICARE, SELFPAY ==
--- NOTE | ~2024-09-01 | MM_ITS ---
EXAMINATION: MM DIAGNOSTIC DIGITAL BREAST TOMOSYNTHESIS, LEFT Limited left breast ultrasound. CLINICAL INFORMATION: Left breast pain lower inner breast. COMPARISON: Mammography: Priors on PACS. TECHNIQUE: Digital breast tomosynthesis is performed in both the craniocaudal and mediolateral oblique views along with computer-aided detection (CAD). Synthesized 2D images are generated from the tomosynthesis. FINDINGS: There are scattered areas of fibroglandular density (ACR BI-RADS breast composition Category b). Huguenot marker in the lower inner breast without underlying abnormality. There are no significant masses, abnormal calcifications, or other abnormalities. Targeted color Doppler ultrasound scanning in the area the patient's pain in the lower inner quadrant demonstrates normal fibroglandular breast tissue. No sonographic abnormal finding. MM/MM tomosynthesis diagnostic LT IMPRESSION: No mammographic or sonographic abnormality to account for left breast pain. Recommend clinical evaluation and followup. ASSESSMENT: BI-RADS BI-RADS 1 - Negative RECOMMENDATION: 1 year F/U Results were provided to the patient at time of visit by the technologist. This patient's information was entered into a reminder system with a target due date for their next mammogram. Electronically signed by: Arleen Bejarano DO 09/01/2024 02:27 PM EDT
--- OUTSIDE RECORDS SUMMARY | 2024-09-01 13:06 | XMS_ITS | Patient Health Record ---
[facility] Address [address] [place] [address] Care Team Providers Care Film Coater Name Role Phone Cal Cole Primary Care Provider Unavailab Brooke Bridges Unavailable [phone] Allergies Allergen (clinical drug ingredient) Drug/Non Drug [...] Once a day for 30 day(s) Active [place] Carbonate ER 450 MG 1 tablet at [...] Problem Acquired hammer toe of right foot (1343041699045566) Other hammer toe(s) (acquired), right foot (M20.41) Active confirmed Problem Acquired hallux valgus (32791180) Hallux valgus (acquired), left foot (M20.12) Active confirmed Problem Acquired hammer toe of left foot (9349141221379779) Other hammer toe(s) (acquired), left foot (M20.42) Active confirmed Problem Acquired hallux valgus (13788001) Hallux valgus (acquired), right foot (M20.11) Active confirmed Decision for Hospitalizat ion/WCC/Tracie r surgery (5),Rx drug management Problem Acquired hammer toe of right foot (4378974111592748) Other hammer toe(s) (acquired), right foot (M20.41) Active confirmed Problem Acquired hammer toe of left foot (3792264898562740) Other hammer toe(s) (acquired), left foot (M20.42) Active confirmed Problem 469534830 Hammer toe of right foot (M20.41) Active confirmed 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
--- OUTSIDE RECORDS SUMMARY | 2024-09-01 13:06 | XMS_ITS ---
Author Organization [facility] Address [address] [place] [address] Care Team Providers Care Vehicle Damage Appraiser Name Role Phone Cal Cole Primary Care Provider Unavailab Elier Rosas [phone] REASON FOR VISIT ins change/diphen/atrop not covered/waiting on pt call back. Encounters Encounter Location Date Provider Diagnosis [facility] [address] [facility] [address] [place] [phone] 08/04/2024 Elier Thompson Plan Of Treatment No Information Progress Notes * TIFFANY LOMASOB:[birth year] (64 yo F)Acc No.[id number]:08/04/2024 Patient:?ABEBEJOEL :1960???Age:64 Y???Sex:Female Address:[address] [place] [address] * true * Date:? Generated for Robeli antoni/Gordo/eTransmitting on:?09/01/2024 01:05 PM EDT
--- OUTSIDE RECORDS SUMMARY | 2024-09-01 13:07 | XMS_ITS ---
Author Organization [facility] Address [address] [place] [address] Care Team Providers Care Pediatric Audiologist Name Role Phone Cal Cole Primary Care Provider Unavailab Elier Rosas [phone] REASON FOR VISIT script /diphen/atrop - will be using good Rx Encounters Encounter Location Date Provider Diagnosis [facility] [address] [place] [phone] 08/10/2024 Elier Thompson Plan Of Treatment No Information Progress Notes * TIFFANY LOMASOB:[birth year] (64 yo F)Acc No.[id number]:08/10/2024 Patient:?GUIDO LOMAS :1960???Age:64 Y???Sex:Female Address:[address] [place] [address] * true * Date:? Generated for Printi ng/Gordo/eTransmitting on:?09/01/2024 01:06 PM EDT
--- OUTSIDE RECORDS SUMMARY | 2024-09-01 13:07 | XMS_ITS | Patient Health Record ---
Author Organization [facility] Address [address] [place] [address] Care Team Providers Care Glazier Helper Name Role Phone Cal Cole Primary Care Provider Elier Davis [phone] Allergies Allergen (clinical drug ingredient) Drug/Non Drug Allergy documented on EMR Reaction Allergy Type Onset Date Status erythromycin Erythromycin Unknown Drug Allergy A ctive codeine Codeine Sulfate Unknown Drug Allergy A ctive amitriptyline Amitriptyline HCl Unknown Drug Allergy Active All steroids and non steroidal medications (uncoded) Unknown Allergy Active Non-steroidal anti-inflammatory agent (FN) NSAIDS (uncoded) Unknown Allergy Active oxcarbazepine Trileptal Unknown Drug Allergy Act hernan Results Component Value Reference Range Notes Complete Blood Count Auto Di ff Reviewed date:12/16/2023 11:30:18 PM Interpretation: Performing Lab:[facility], [address] [place] [phone] Notes/Report: White Blood Count 12.1 4.8-10.8 X10*3/uL Red Blood Count 4.12 4.20-5.50 X10*6/uL Hemoglobin 12.8 12.0-16.0 g/dl Hematocrit 39.6 37.0-47.0 % Mean Corpuscular Volume 96.1 80.0-98.0 fL Mean Corpuscular Hemoglobin 31.1 27.0-33.0 pg Mean Corpuscular HGB Conc 32.3 31.0-35.0 g/dl Red Cell Distribution Width 13.3 11.0-16.0 % Platelet Count 262 160-400 X10*3/uL Mean Platelet Volume 11.0 9.4-12.3 fL Neutrophils Percent Auto 65.6 45-73 % Imm Gran Pct Auto 0.3 0.0-0.4 % Lymphocytes Percent Auto 26.9 20-40 % Monocytes Percent Auto 5.0 2-11 % Eosinophils Percent Auto 1.6 0-4 % Basophils Percent Auto 0.6 0-2 % NRBC Pct Auto 0.0 0.0-0.2 /100WBC Neutrophils Absolute Auto 8.0 2.0-8.3 x10*3/uL Imm Gran Abs Auto 0.04 0.00-0.03 X10*3/uL Lymphocytes Absolute Auto 3.3 1.2-4.9 X10*3/uL Monocytes Absolute Auto 0.6 0.1-1.2 X10*3/uL Eosinophils Absolute Auto 0.2 0.0-0.4 X10*3/uL Basophils Absolute Auto 0.1 0.0-0.2 X10*3/uL NRBC Abs Auto 0.000 0.0-0.012 X10*3/uL Prothrombin Time INR Reviewed date:12/10/2023 07:42:38 PM Interpretation: Performing Lab:[address] [address] Notes/Report: Prothrombin Time 11.4 11.1-13.3 SEC INTERNATIONAL NORM RATIO 0.9 0.9-1.1 INTERNATIONAL NORMALIZED RATIO (INR) REFERENCE RANGES Reference Range For patients not on anticoagulant therapy: 0.9 - 1.1 INR ranges for oral anticoagulant therapy: For prevention and treatment of venous thrombosis and pulmonary embolism: 2.0 - 3.0 For acute myocardial infarction with aspirin therapy: 2.0 - 3.0 For acute myocardial infarction without aspirin therapy: 3.0 - 4.0 For patients with mechanical prosthetic heart valves: 2.5 - 3.5 Liver Panel Reviewed date:12/11/2023 07:23:49 PM Interpretation: Performing Lab:[address] [address] Notes/Report: Bilirubin Total 0.3 0.0-1.0 mg/dL Bilirubin Direct 0.1 0.0-0.5 mg/dL Aspartate Amino Transferase 10 5-31 U/L Alanine Aminotransferase 8 0-31 U/L Total Protein 7.1 6.5-8.0 g/dL Albumin Level 4.3 3.5-5.0 g/dL Alkaline Phosphatase 75 39-117 U/L Alpha Fetoprotein Reviewed date:12/19/2023 03:45:03 PM Interpretation: Performing Lab:[facility], [address] [place] [phone] Notes/Report: Alpha Fetoprotein 2.1 Reference Range: <6.1 The use of AFP as a tumor marker in females is not recommended. This test was performed using the Keyla Wharton chemiluminescent method. Values obtained from different assay methods cannot be used interchangeably. AFP levels, regardless of value, should not be interpreted as absolute evidence of the presence or absence of disease. THIS TEST WAS PERFORMED AT: [facility] [address] [place] [phone] MATT ARMENTA MD Liver Fibrosis Pnl Reviewed date:12/26/2023 12:11:57 AM Interpretation: Performing Lab:[facility], [address] [place] [phone] Notes/Report: Liver Fibrosis Score 0.42 Liver Fibrosis Stage F1-F2 Liver Fibrosis Interpretation SEE NOTE minimal fibrosis Fibro Test Score (f) Metavir Score f>=0 and f<=0.21 : F0 (no fibrosis) f>0.21 and f<=0.27 : F0-F1 (no fibrosis) f>0.27 and f<=0.31 : F1 (minimal fibrosis) f>0.31 and f<=0.48 : F1-F2 (minimal fibrosis) f>0.48 and f<=0.58 : F2 (moderate fibrosis) f>0.58 and f<=0.72 : F3 (advanced fibrosis) f>0.72 and f<=0.74 : F3-F4 (advanced fibrosis) f>0.74 and f<=1.00 : F4 (severe fibrosis) Nec Inflam Act Score 0.01 Nec Inflam Act Grade A0 Nec Inflam Act Interpretation SEE NOTE no activity ActiTest Score (a) Metavir Score a>=0 and a<=0.17 : A0 (no activity) a>0.17 and a<=0.29 : A0-A1 (no activity) a>0.29 and a<=0.36 : A1 (minimal activity) a>0.36 and a<=0.52 : A1-A2 (minimal activity) a>0.52 and a<=0.60 : A2 (significant activity) a>0.60 and a<=0.62 : A2-A3 (significant activity) a>0.62 and a<=1.00 : A3 (severe activity) QKM-Ggzqw-1-Macroglobuli n 490 106-279 mg/dL FIB-Haptoglobin 200 43-212 mg/dL FIB-Apolipoprotein A1 138 101-198 mg/dL FIB-Total Bilirubin 0.3 0.2-1.2 mg/dL FIB-GGT 13 3-65 U/L FIB-ALT 6 6-29 U/L Reference ID [id number] Footnote SEE NOTE The reliability of results is dependent on compliance with the preanalytical and analytical conditions recommended by [employer] The tests have to be deferred for: acute hemolysis, acute hepatitis, acute inflammation, extra hepatic cholestasis. The advice of a specialist should be sought for interpretation in chronic hemolysis and Gilbert's syndrome. The test interpretation is not validated in liver transplant patients. Isolated extreme values of one of the components should lead to caution in interpreting the results. In case of discordance between a biopsy result and a test, it is recommended to seek the advice of a specialist. The causes of these discordances could be due to a flaw of the test or to a flaw in the biopsy: i.e. a liver biopsy has a 33% variability rate for one fibrosis stage. FibroTest is interpretable for chronic hepatitis B and C, alcoholic and non alcoholic steatosis. ActiTest is interpretable for chronic hepatitis B and C. The performance characteristics have been determined by [facility]. It has not been cleared or approved by the U.S. Food and Drug Administration. Performance characteristics refer to the analytical performance of the test. [employer], [employer], the associated logo, [employer] and all associated [employer] hoang are the registered trademarks of [employer]. All third republican hoang - (R) and (TM) - are the property of their respective owners. (C) [id number] [employer]. All rights reserved. THIS TEST WAS PERFORMED AT: [facility] [place] [place] [address] [facility] [address] WILLIAMS TRINH MD,PHD,FLAQUITA Hep C Viral Load Reviewed date:12/16/2023 11:23:41 PM Interpretation: Performing Lab:[facility], [address] [place] [phone] Notes/Report: HepC Viral Load <15 NOT DETECTED NOT DETECTED IU/mL HCV Log PCR <1.18 NOT DETECTED NOT DETECTED Log IU/mL For additional information, please refer to http://education.[employer]/faq/FA Q22v1 (This link is being provided for informational/ educational purposes only.) THIS TEST WAS PERFORMED AT: [facility] [address] [place] [phone] MATT ARMENTA MD US abdomen comp w elastograp hy Reviewed date:05/18/2024 07:37:50 PM Interpretation: Performing Lab: Notes/Report: [address] [address] Ultrasound Report Signed Patient: Guido Lomas MR#: [id number] : 1960 Acct:[id number] Age/Sex: 63 / F ADM Date: 12/10/23 Loc: HO.US Attending Dr: Elier Thompson MD Ordering Physician: Elier Thompson MD Date of Service: 12/10/23 Procedure(s): US abdomen comp w elastography Accession Number(s): [id number] cc: Cal Cole PA-C; Elier Thompson MD EXAMINATION: US COMPLETE ABDOMEN WITH LIVER ELASTOGRAPHY CLINICAL INFORMATION: Chronic hepatitis C COMPARISON: None available. TECHNIQUE: Real-time imaging of the abdominal viscera. Noninvasive ultrasound liver fibrosis assessment is performed using Ulises ElastPQ point quantification shear wave elastography (2D-SWE) with a C5-2 MHz transducer. Multiple elastography samples are obtained. FINDINGS: PANCREAS: Normal. The visualized pancreatic head and body are normal in appearance. The remainder of the pancreas is obscured from visualization by the overlying bowel gas. ABDOMINAL AORTA: The proximal, middle, and distal aortic segments are normal in caliber. INFERIOR VENA CAVA: Visualized portions are normal. LIVER: The liver parenchyma appears mildly echogenic. No suspicious liver mass. There is a 1.8 cm septated cyst in the right hepatic lobe for which no imaging follow-up is recommended. The right lobe measures 14.0 cm in length. The left lobe measures 12.2 cm in length. Portal flow is towards the liver (hepatopetal). Shear wave liver elastography median stiffness is 1.3 m/s (reference: normal median stiffness is 1.3 m/s or less). IQR/median stiffness to assess sampling precision is 0.3 (reference: good quality data set is IQR/median stiffness of 0.15 or less). GALLBLADDER: Cholecystectomy. COMMON BILE DUCT: 1.1 cm which may be reservoir effect. RIGHT KIDNEY: New 1.0 cm echogenic mass in the mid right kidney. No hydronephrosis. No renal calculi. The kidney measures 10.1 cm in maximum dimension. LEFT KIDNEY: Normal. No hydronephrosis. No renal calculi or focal parenchymal lesions. The kidney measures 9.3 cm in maximum dimension. SPLEEN: Normal. The spleen measures 11.0 cm in maximum dimension. FREE FLUID: None. US/US abdomen comp w elastography IMPRESSION: 1. Mildly echogenic liver consistent with chronic hepatocellular disease. 2. Liver elastography: Although measurements suggest a high probability of normal liver stiffness, there is statistical variability of the sampling which decreases accuracy. 3. New 1.0 cm echogenic mass in the mid right kidney. While this could be an angiomyolipoma, it would be unusual to develop a new angiomyolipoma in a short timeframe. Recommend further evaluation with CT or MRI abdomen without and with intravenous contrast for more definitive characterization and to exclude renal cell carcinoma. REFERENCE: Society of Radiologists in Ultrasound Liver Stiffness Thresholds (2020): LIVER STIFFNESS THRESHOLDS: *Liver Stiffness equal or less than 1.3 m/s: High probability of being normal. *Liver Stiffness less than 1.7 m/s: In the absence of other known clinical signs, rules out compensated advanced chronic liver disease. *Liver Stiffness 1.7-2.1 m/s: Suggestive of compensated advanced chronic liver disease but need further test for confirmation. *Liver Stiffness over 2.1 m/s: Rules in compensated advanced chronic liver disease. *Liver Stiffness over 2.4 m/s: Suggestive of clinically significant portal hypertension. QUALITY OF DATA SET: *IQR/Median value equal or less than 0.15 implies a quality data set. *IQR/Median value over 0.15 implies a poor quality data set. SIGNIFICANT CHANGE FROM PRIOR EXAM: Significant change if liver stiffness measurement is 10% or greater from prior exam. OTHER CONSIDERATIONS: The stage of liver fibrosis may be overestimated in the setting of acute hepatitis, liver inflammation, elevated liver function tests, hepatic vascular congestion, obstructive cholestasis, non-fasting state, and infiltrative diseases such as amyloidosis and lymphoma. In some patients with NAFLD, the liver stiffness thresholds for compensated advanced chronic liver disease may be lower. In causes other than viral hepatitis and NAFLD, liver stiffness thresholds are not well established. Dictated By: El Perez MD Signed By: <Electronically signed by El Perez MD in OV> 12/30/23 1412 DD/ 1012 TD/TT: Mechanical Unit Repairer: [address] [address] Ultrasound Report Signed Patient: Guido Lomas MR#: [id number] : 1960 Acct:[id number] Age/Sex: 63 / F ADM Date: 12/10/23 Loc: HO.US Attending Dr: Elier Thomposn MD Ordering Physician: Elier Thompson MD Date of Service: 12/10/23 Procedure(s): US abdomen comp w elastography Accession Number(s): [id number] cc: Cal Cole PA-C; Elier Thompson MD EXAMINATION: US COMPLETE ABDOMEN WITH LIVER ELASTOGRAPHY CLINICAL INFORMATION: Chronic hepatitis C COMPARISON: None available. TECHNIQUE: Real-time imaging of the abdominal viscera. Noninvasive ultrasound liver fibrosis assessment is performed using Ulises ElastPQ point quantification shear wave elastography (2D-SWE) with a C5-2 MHz transducer. Multiple elastography samples are obtained. FINDINGS: PANCREAS: Normal. Th e visualized pancreatic head and body are normal in appearance. The remainder of the pancreas is obscured from visualization by the overlying bowel gas. ABDOMINAL AORTA: The proximal, middle, and distal aortic segments are normal in caliber. INFERIOR VENA CAVA: Visualized portions are normal. LIVER: The liver parenchyma appears mildly echogenic. No suspicious liver mass. There is a 1.8 cm septated cyst in the right hepatic lobe for which no imaging follow-up is recommended. The right lobe measu res 14.0 cm in length. The left lobe measures 12.2 cm in length. Portal flow is towar ds the liver (hepatopetal). Shear wave liver elastography median stiffness is 1.3 m/s (reference: normal median stiffn ess is 1.3 m/s or less). IQR/median stiffness to assess sampling precision is 0.3 (reference: good quality data se t is IQR/median stiffness of 0.15 or less). GALLBLADDER: Cholecystectomy. COMMON BILE DUCT: 1. 1 cm which may be reservoir effect. RIGHT KIDNEY: New 1. 0 cm echogenic mass in the mid right kidney. No hydronephrosis. No renal calculi. The kidney measures 10.1 cm in maximum dimension. LEFT KIDNEY: Normal. No hydronephrosis. No renal calculi or focal parenchymal lesions. The kidney measures 9.3 cm in maximum dimension. SPLEEN: Normal. The spleen measures 11.0 cm in maximum dimension. FREE FLUID: None. US/US abdomen comp w elastography IMPRESSION: 1. Mildly echogenic liver consistent with chronic hepatocellular disease. 2. Liver elastograph y: Although measurements suggest a high probability of ada l liver stiffness, there is statistical variability of the sampling whic h decreases accuracy. 3. New 1.0 cm echoge brittney mass in the mid right kidney. While this could be an angiomyolipoma , it would be unusual to develop a new angiomyolipoma in a short timeframe. Recommend further evaluation with CT or MRI abdomen without and with intravenous contrast for more definitive characterization and to exclude renal cell carcinoma. REFERENCE: Society of Radiologi sts in Ultrasound Liver Stiffness Thresholds (2020): LIVER STIFFNESS THRESHOLDS: *Liver Stiffness equ al or less than 1.3 m/s: High probability of being normal. *Liver Stiffness les s than 1.7 m/s: In the absence of other known clinical signs, rule s out compensated advanced chronic liver disease. *Liver Stiffness 1.7-2.1 m/s: Suggestive of compensated advanced chronic liver diseas e but need further test for confirmation. *Liver Stiffness ove r 2.1 m/s: Rules in compensated advanced chronic liver disease. *Liver Stiffness ove r 2.4 m/s: Suggestive of clinically significant portal hypertension. QUALITY OF DATA SET: *IQR/Median value eq ual or less than 0.15 implies a quality data set. *IQR/Median value ov er 0.15 implies a poor quality data set. SIGNIFICANT CHANGE F ROM PRIOR EXAM: Significant change i f liver stiffness measurement is 10% or greater from prior exam. OTHER CONSIDERATIONS: The stage of liver fibrosis may be overestimated in the setting of acute hepatitis, mimi er inflammation, elevated liver function tests, hepatic vascular congestion, obstructive cholestasis, non-fasting state, and infiltrat hernan diseases such as amyloidosis and lymphoma. In some patients with NAFLD, the liver stiffness thresholds for compensated advanced chronic liver disease may be lower. In causes other than viral hepatitis and NAFLD, liver stiffness thresholds are not well established. Dictated By: El Perez MD Signed By: <Electronically signed by El Perez MD in OV> 12/30/23 1412 DD/ 1012 TD/TT: Mechanical Unit Repairer: DEEJAY Pathology Reviewed date:05/18/2024 07:35:56 PM Interpretation: Performing Lab:[facility], [address] [place] [phone] Notes/Report: --- Name: Guido Lomas Age/Sex: 64/F : 1960 Unit#: [id number] Attend Dr: Elier Thompson MD Re02/22/24 [place] : [facility] [place]: [facility] Disch: --- SPEC : [id number] RECD : 02/22/24 STATUS: KONSTANTIN BARON NUM: [id number] TIARA: 02/22/24-1032 [facility] DR: Elier Thompson MD ENTERED: 02/22/24-04 16 SP TYPE: Surgical OTHR DR: Cal Cole PA-C ORDERED: HE Stain/6, Gross Micro L4/2 Diagnosis A. Colon, 30 cm, polypectomy: Fragments of tubular adenoma; negative for high-grade dysplasia or carcinoma. B. Colon, ascending, polypectomy: Tubular adenoma; negative for high-grade dysplasia or carcinoma. Clinical History Pre-Op Dx: Screening Post-Op Dx: Colon polyps, diverticulosis, hemorrhoids Microscopic Description A, B. Microscopic sections reviewed. Material Received A. Polyp at 30 cm B. Ascending colon polyp Gross Description Received in two parts. Part A: Received in formalin labeled ?polyp at 30 cm? is a 0.35 cm fuentes papular tissue fragment, submitted in toto in a cassette labeled A. Part B: Received in formalin labeled ?ascending colon polyp? is a 0.35 cm fuentes-pink papular tissue fragment, submitted in toto in a cassette labeled B. CEDS Copies To: Cal Cole PA-C [facility],[address] [place] [address] CONTINUED ON NEXT PAGE --- Name: Guido Lomas Age/Sex: 64/F : 1960 Unit#: [id number] Attend Dr: Elier Thompson MD Re02/22/24 Status : [facility] Location: [facility] Disch: --- SPEC : [id number] RECD : 02/22/24 STATUS: KONSTANTIN BARON NUM: [id number] TIARA: 02/22/[address] [facility] [address]: Elier Thompson MD ENTERED: 02/22/24 30 SP TYPE: Surgical OTHR DR: Cal oCle PA-C ORDERED: HE Stain/6, Gross Micro L4/2 Copies To: (Continued) Elier Thompson MD [facility] [address] [place] [address] [address] [place] [address] --- Signed (signature on file) Ben Mojica MD 02/23/24 1303 --- END OF REPORT Reason For Referral No Information Medications Medication SIG (Take, Route, Frequency, Duration) Notes Start Date End Date Status Diphenoxylate-Atropine 2.5-0.025 MG TAKE 1 OR 2 TABLETS BY MOUTH EVERY 6 HOURS IF NEEDED FOR DIARRHEA, OR SHE CAN ALSO TAKE THE MEDICINE BEFORE AN ACTIVITY TO PREVENT DIARRHEA Orally up to four times a day per the instructions for 30 days 08/11/2024 Active Nicolaus Carbonate 450mg Active Levothyroxine Sodium 0.125mg Active Flexeril prn Active Sulfamethoxazole-Trimethopr im 800-160 MG TK 1 T PO BID FOR 10 DAYS Oral for 10 Active Immunizations Vaccine Route Administration Date Status Comme nts Influenza Unknown 02/15/2018 Administered Influenza Unknown 01/17/2020 Administered Influenza Unknown 04/07/2023 Administered Problems Problem Type SNOMED Code ICD Code Onset Dates Problem Status W/U Status Risk Notes Problem 111037862 Encounter for screening for malignant neoplasm of colon (Z12.11) Active confirmed Problem 449262736 History of adenomatous polyp of colon (Z86.010) Active confirmed Problem Diarrhea (85602291) Diarrhea (R19.7) Active con firmed Problem Diverticular disease of colon (864500267) Diverticulosis of large intestine without perforation or abscess without bleeding (K57.30) Active confirmed Problem 543356387 Chronic hepatiti s C without hepatic coma (B18.2) Active confirmed Problem History of gastrointestinal disease (545147436) History of chronic hepatitis (Z87.19) Active confirmed Problem Hepatic fibrosis (disorder) (59831765) Liver fibrosis (K74.00) Active confirmed Vital Signs Temperature 97.8 degrees Fahrenheit 11/27/2023 Blood pressure diastolic 00 mm Hg 11/27/2023 Height 62 in 11/27/2023 Blood pressure systolic 000 mm Hg 11/27/2023 Weight 141 lbs 11/27/2023 BMI 25.79 kg/m2 11/27/2023 Encounters Encounter Location Date Provider Diagnosis [facility] [address] [place] [id number] 02/22/2024 Elier Thompson Colon cancer screeni ng Z12.11 ; Colon polyps K63.5 ; Diverticulosis of large intestine without perforation or abscess without bleeding K57.30 and Other hemorrhoids K64.8 [facility] [address] [place] [phone] 11/27/2023 Elier Thompson Chronic hepatitis C without hepatic coma B18.2 ; Liver fibrosis K74.00 ; Encounter for screening for malignant neoplasm of colon Z12.11 and History of adenomatous polyp of colon Z86.010 [facility] [address] [place] [phone] 11/26/2023 Elier Thompson [facility] [address] [place] [phone] 12/26/2023 Elier Thompson [facility] [address] [place] [phone] 02/21/2024 Elier Thompson [facility] [address] [place] [address] 08/04/2024 Elier Thompson [facility] [address] [place] [phone] 08/10/2024 Elier Thompson Assessments Encounter Date Diagnosis (ICD Code) Assessment Notes Treatment Notes Treatment Clinical Notes Section Notes 02/22/2024 Colon cancer screening (ICD-10 - Z12.11) 02/22/2024 Colon polyps (ICD-10 - K63.5) 11/27/2023 Chronic hepatitis C without hepatic coma (ICD-10 - B18.2) Overall, Guido appears well. She does not show any signs or have any symptoms of progressive liver disease. She does not have any new or worse and GI complaints. Given the previous history of hepatitis C and some liver fibrosis, I did recommend a followup abdominal ultrasound and the below laboratories including an alpha-fetoprote in level. I did recommend a followup colonoscopy for further screening given her history of a tubular adenoma removed over 5 years ago. We did review the rationale for that in regard to colon cancer prevention. Full consent was obtained for this, including risks of bleeding and perforation. The procedure will be done with monitored anesthesia care. Guido was comfortable with this plan. Thank you again for allowing me to participate in her Guido's care. I shall continue to keep you advised of her progress. 11/27/2023 Liver fibrosis (ICD-10 - K74.00) Overall, Guido appears well. She does not show any signs or have any symptoms of progressive liver disease. She does not have any new or worse and GI complaints. Given the previous history of hepatitis C and some liver fibrosis, I did recommend a followup abdominal ultrasound and the below laboratories including an alpha-fetoprote in level. I did recommend a followup colonoscopy for further screening given her history of a tubular adenoma removed over 5 years ago. We did review the rationale for that in regard to colon cancer prevention. Full consent was obtained for this, including risks of bleeding and perforation. The procedure will be done with monitored anesthesia care. Guido was comfortable with this plan. Thank you again for allowing me to participate in her Guido's care. I shall continue to keep you advised of her progress. 02/22/2024 Diverticulosis of large intestine without perforation or abscess without bleeding (ICD-10 - K57.30) 11/27/2023 Encounter for screening for malignant neoplasm of colon (ICD-10 - Z12.11) Overall, Guido appears well. She does not show any signs or have any symptoms of progressive liver disease. She does not have any new or worse and GI complaints. Given the previous history of hepatitis C and some liver fibrosis, I did recommend a followup abdominal ultrasound and the below laboratories including an alpha-fetoprote in level. I did recommend a followup colonoscopy for further screening given her history of a tubular adenoma removed over 5 years ago. We did review the rationale for that in regard to colon cancer prevention. Full consent was obtained for this, including risks of bleeding and perforation. The procedure will be done with monitored anesthesia care. Guido was comfortable with this plan. Thank you again for allowing me to participate in her Guido's care. I shall continue to keep you advised of her progress. 02/22/2024 Other hemorrhoids (ICD-10 - K64.8) 11/27/2023 History of adenomatous polyp of colon (ICD-10 - Z86.010) Overall, Guido appears well. She does not show any signs or have any symptoms of progressive liver disease. She does not have any new or worse and GI complaints. Given the previous history of hepatitis C and some liver fibrosis, I did recommend a followup abdominal ultrasound and the below laboratories including an alpha-fetoprote in level. I did recommend a followup colonoscopy for further screening given her history of a tubular adenoma removed over 5 years ago. We did review the rationale for that in regard to colon cancer prevention. Full consent was obtained for this, including risks of bleeding and perforation. The procedure will be done with monitored anesthesia care. Guido was comfortable with this plan. Thank you again for allowing me to participate in her Guido's care. I shall continue to keep you advised of her progress. Plan Of Treatment Pending Test Test Name Order Date LIVER PROFILE 10/01/2017 LIVER PROFILE 03/13/2020 LIVER PROFILE 08/25/2023 LIVER PROFILE 11/27/2023 LIVER PROFILE 11/17/2017 LIVER PROFILE 03/25/2018 CRP 08/25/2023 CBC w DIFF 10/01/2017 CBC w DIFF 03/13/2020 CBC w DIFF 11/27/2023 CBC w DIFF 08/25/2023 CBC w DIFF 11/17/2017 SED RATE (ESR) 08/25/2023 ALPHA-FETOPROTEIN,TUMOR MARKER 4 ALPHA-FETOPROTEIN,TUMOR MARKER 9 ALPHA-FETOPROTEIN,TUMOR MARKER 0 HEPATITIS C VIRAL LOAD 03/13/2020 HEPATITIS C VIRAL LOAD 03/25/2018 HEPATITIS C VIRAL LOAD 11/17/2017 HEPATITIS C VIRAL LOAD 11/27/2023 HEPATITIS C VIRAL LOAD 10/01/2017 US ABD 03/13/2020 HCV LIVER FIBROSIS, FIBRO TEST 4 HCVVL REFLEX GENOTYPE REFLEX NS5A 2017 STOOL WBC 08/25/2023 C DIFFICILE RFLX PCR 08/25/2023 Prothrombin Time INR 11/27/2023 Calprotectin, Fecal 08/25/2023 US abdomen comp w elastography 4 GI PANEL 08/25/2023 Future Test Test Name Order Date FLEXIBLE SIGMOIDOSCOPY, DIAGNOSTIC 11/05 UPPER GI ENDOSCOPY 11/06/2011 COLONOSCOPY 03/25/2018 COLONOSCOPY 11/27/2023 Insurance Providers Payer Name Payer Address Payer Phone Subscriber Number Group Number Insured Name Patient Relationship to Insured Coverage Start Date Coverage End Date [facility] [address] [place] [phone] [id number] GUIDO LOMAS Self - patient is the insured Medical (General) History Medical History History ICD Code Fibromyalgia Bipolar disease Hypothyroidism Denies OR,DM,CVA,Lung disease,renal dise ase IBS with diarrhea--neg. colo noscopy in 2008 and neg. flex sig in 2011--no IBD, no microscopic colitis, no polyps EGD in 2011--neg. celiac dis ease, positive for GERD, but no Tarango's--mod-sized HH, no H.pylori Chronic hep C--received bloo d transfusions during in the s--treated with 12 weeks of Harvoni 09/2017-12/2017--neg Hep C viral load in 02/2018; Fibrosis score 0.4 F1-F2, Genotype 1b; neg Hep C viral load in 02/2019 and in 05/2020. Colonoscopy in 05/2018 with a small tubul ar adenoma removed Sciatica [place] [facility] [place] History Surgery Date(Month/Year) Cholecystectomy Tonsillectomy Left foot surgery 09/2016 Pilonidal cyst removed-Dr. Browne 10/04 18 Bunions removed Nerve stimulator for sciatica pain
--- OUTSIDE RECORDS SUMMARY | 2024-09-01 13:07 | XMS_ITS ---
Author Organization [facility] Address [address] [place] [address] Care Team Providers Care Bulk Intake Worker Name Role Phone Cal Cole Primary Care Provider Unavailab Elier Rosas Unavailable [phone] REASON FOR VISIT screening,hx polyps Problems Problem Type SNOMED Code ICD Code Onset Dates Problem Status W/U Status Risk Notes Problem Diverticular disease of colon (784983772) Diverticulosis of large intestine without perforation or abscess without bleeding (K57.30) Active confirmed Encounters Encounter Location Date Provider Diagnosis [facility] [place] [facility] [address], [place] [id number] 02/22/2024 Elier Thompson Colon cancer scree bob [...] Notes * TIFFANY LOMASOB:[birth year] (64 yo F)Acc No.[id number]:02/22/2024 COLON WITH MAC Patient:?GUIDO LOMAS Provider:?Elier Thompson MD :[id number]???Age:64 Y???Sex:Female D ate:02/22/2024 Address:[address] [place], [place] [id number] Pcp:Cal Cole Subjective: * Chief Complaints: * ???1. Screening,hx polyps. * Medical History:? Objective: * Vitals:? Assessment: * Assessment: 1.?Colon cancer screening - Z12.11 (Primary)???2.?Colon polyps - K63.5???3.?Diverticulosis of large intestine without perforation or abscess without bleeding - K57.30???4.?Other hemorrhoids - K64.8??? Plan: * Treatment: * Procedure Codes:?90904 LESIO N REMOVAL COLONOSCOPY, Modifiers: PT , [...] MD Date:? 024 Generated for Tani corrales/Gordo/Nevinitting on:?09/01/2024 01:07 PM EDT
== END 2024-09-01 10:49 | disposition home or self-care (01) ==
LOC: HO.MAMMO 10:48
PROVIDERS: PCP Physician Assistant; Visit Provider Physician Assistant
DX: N64.4 Mastodynia (principal)
CPT/HCPCS: 76642; 77061; 77065

== ENCOUNTER → 2024-09-01 11:30 | Outpatient (BNV) | payer MEDICARE, SELFPAY | PROVIDERS: PCP Physician Assistant; Visit Provider Internal Medicine | DX: R92.8 Other abnormal and inconclusive findings on diagnostic imaging of breast (principal) | CPT/HCPCS: 76642; 77065; G0279 ==

== ENCOUNTER 2024-10-20 13:27 | Outpatient (AMB) | payer OTHER, SELFPAY ==
[2024-10-20 13:30] VITALS: BP 92/52; PULSE 67; O2SAT 98; BMI 24.9
--- NOTE | 2024-10-20 13:30 | MHC.PC.OV ---
Vital Signs 10/20/24 13:30 10/20/24 14:01 Height 5 ft 2 in Weight 136 lb 2 oz BMI 24.9 BP 92/52 L 118/70 Blood Pressure Location Lt brachial Position Sitting Pulse 67 Pulse Source Pulse Oximeter Pulse Oximetry (%) 98 Oxygen Delivery Method Room Air Intake Visit Reasons: PE Equal Opportunity Specialist Required: No Accompanied by: Self / Same As Patient Allergies oxcarbazepine [From Trileptal] Allergy (Severe, Verified 10/20/24 13:41) Hives,itching,rash, double vision codeine Allergy (Mild, Verified 10/20/24 13:41) Itching oral steroid Allergy (Mild, Uncoded 10/20/24 13:41) suicidal Medication List - Last Reconciled 10/20/24 by Cal Cole PA-C acetaminophen (Tylenol Extra Strength) 500 mg PO Q6H PRN cholecalciferol (vitamin D3) 50 mcg PO DAILY cyclobenzaprine 10 mg PO TID PRN 10 days levothyroxine 137 mcg PO DAILY 90 days lithium carbonate ER 450 mg PO TID 90 days Tobacco use date assessed: 10/20/24 Fall risk assessment: No Falls in past year Last assessed Fall Risk: 10/20/24 Dental Screening Dental Screen Date: 10/20/24 Did you have a dental visit in the last 12 months?: Yes Did you have a dental problem in the last 6 months where you did not have access to dental care?: No Was dental information given to patient?: Patient has dentist HPI PE HPI Details Patient is a 64 female here today for an annual physical. ??Patient has a past medical history significant hypothyroidism, Chronic pain syndrome SI joint dysfunction, bipolar 1 disorder. .. Hypothroidism: Was followed by housekeeping and laundry team leader, Continues on levothyroxine 137 mcg. Recheck TSH to assure normal ? .. Concerns-->Interested in seening a label stamper again for her hammertoe of the right foot. Having left wrist pain since her colonoscopy. .. Hyperparathyroidism: She has lost her follow-up with Endocrinology, most recent calcium has been stable., Vitamin-D has been low and she has been replaced with vitamin-D supplement. .. Bipolar disorder: Was followed by a psychologist though has not seen him in quite some time. She continues on lithium she feels she is stable on her current dose for many years .. Mammo : Mammogram done August 2024 .. FIBERGLASS MACHINE OPERATOR: Melinda Conklin FIBERGLASS MACHINE OPERATOR .. Colonoscopy: See Dr almanza, done colonoscopy in 2023, repeat 5 years .. Vaccine :? UTD Tdap, UTD With COVID ( J& J),? up-to-date with pneumonia vac, Tdap, Shingles. Laboratory Tests 04/19/22 09/02/22 08:47 08:22 RBC 4.41 Creatinine 0.93 TSH 1.59 1.87 PFSH Medical History Annual physical exam Screening for diabetes mellitus (DM) Breast pain, left Pre-op chest exam Screening for hypercholesterolemia Screening for hyperlipidemia Screening for diabetes mellitus (DM) Osteoarthritis Bipolar disorder Low back pain Asthma Hx of hepatitis C Hyperparathyroidism Vitamin D deficiency Multinodular thyroid Sacroiliac joint dysfunction Chronic pain syndrome AXEL positive Surgical History History of bunionectomy History of carpal tunnel release History of back surgery Hx of prior ablation treatment History of excision of pilonidal cyst History of foot surgery History of appendectomy History of laparoscopy History of cholecystectomy History of tonsillectomy History of section Family History Father Asthma CVD (cardiovascular disease) Stroke Diabetes Mother Healthy adult Sister Lupus Social History (Updated 10/20/24 @ 13:49 by Cal Cole PA-C) Household Members: Family Housing: House Are you a primary manager medicare marketing to a significant other at home: No Do you presently have visiting nurse or other home services: No Alcohol intake: never Patient Tobacco Use Status: Former Tobacco user Tobacco use type: Cigarette Years Smoked: 3 quit age 18 e-Cigarette/Vaping Use: Never Used service: No Current occupational status: retired and disabled 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 1. Little interest or pleasure in doing things: not at all 2. Feeling down, depressed, or hopeless: not at all 3. Trouble falling or staying asleep, or sleeping too much: not at all 4. Feeling tired or having little energy: not at all 5. Poor appetite or overeating: not at all 6. Feeling bad about yourself - or that you are a failure or have let yourself or your family down: not at all 7. Trouble concentrating on things, such as reading the newspaper or watching television: not at all 8. Moving or speaking so slowly that other people could have noticed. Or the opposite - being so fidgety or restless that you have been moving around a lot more than usual: not at all 9. Thoughts that you would be better off or of hurting yourself in some way: not at all Total score: 0 Depression Screening Interpretation: Negative Depression Screening Done: Yes 92425 - PHQ-9 Billing: Yes Source: Developed by Drs. Elier Carrion, Ignacia Weaver, Fermin Lorenzana and colleagues, with an educational woo from [employer]. Thrive Questionnaire Date Thrive assessed: 10/20/24 Are you currently unemployed and looking for a job?: No AUDIT C Alcohol Use Questionnaire (AUDIT-C) 1. How often do you have a drink containing alcohol?: Never 3. How often do you have six or more drinks on one occasion?: Never Total Score: 0 JUVE-7 AMB Questionnaire JUVE-7 Date JUVE - 7 assessed: 10/20/24 Source: Developed by Drs. Elier Carrion, Ignacia Weaver, Fermin Lorenzana and colleagues, with an educational woo from [employer]. Review of Systems Const Denies body aches, Denies chills, Denies excessive sweating, Denies fatigue, Denies fever(s) and Denies headache(s) Eyes Denies blurry vision ENT Denies dysphagia, Denies vertigo, Denies dizziness, Denies headache(s), Denies hearing loss and Denies tinnitus Card Denies chest pain, Denies chest pain with activity, Denies syncope, Denies irregular heart rhythm and Denies dyspnea Resp Denies chest congestion, Denies cough, Denies hemoptysis, Denies dyspnea and Denies wheezing GI Denies abdominal pain, Denies melena, Denies hematochezia, Denies coffee ground emesis, Denies dysphagia, Denies diarrhea, Denies nausea and Denies vomiting Denies urinary frequency, Denies dysuria, Denies urinary hesitancy and Denies urinary urgency Musc Denies arthralgias, Denies limited range of motion, Denies muscle cramps and Denies muscle weakness Skin/Breast Denies rash and Denies skin ulcer Neuro Denies Abnormal speech present, Denies confusion, Denies vertigo, Denies dizziness, Denies syncope, Denies headache(s), Denies memory loss and Denies seizure-like activity Psych Denies anxiety, Denies confusion, Denies depression, Denies memory loss, Denies panic attacks and Denies paranoia Endo Denies excessive sweating, Denies fatigue, Denies flushing, Denies polydipsia and Denies polyuria Aller/Immun Denies wheezing Physical exam (Primary Care) Vital Signs: Last Vital Signs Pulse 67 10/20/24 13:30 BP 118/70 10/20/24 14:01 Pulse Ox 98 10/20/24 13:30 Oxygen Delivery Method Room Air 10/20/24 13:30 BMI result Body Mass Index 24.9 Tobacco/Smoking Status: Tobacco use Status Tobacco use date assessed 10/20/24 10/20/24 13:39 Patient Tobacco Use Status Former Tobacco user 10/20/24 13:49 Tobacco use type Cigarette 10/20/24 13:49 e-Cigarette/Vaping Use Never Used 10/20/24 13:49 PHQ-9: PHQ-9 Score PHQ-9: Total score 0 10/20/24 13:42 Depression Screening Interpretation: Negative Thrive Assessment: Date of Thrive Assessment Date Thrive assessed 10/20/24 10/20/24 13:39 Const General: cooperative, comfortable, no acute distress, alert and awake; No confusion Orientation/consciousness: oriented to person, oriented to place, patient oriented x3 and No confusion HENMT Head: Yes normocephalic Ears: external ears normal and TM's normal bilaterally Face and sinus: No sinus tenderness Mouth: Normal oral and palatal mucosa present and tongue normal Teeth and gingiva: dentition normal and gingiva normal Throat: Yes posterior oropharynx normal, Yes tonsils normal and Yes uvula midline Eyes Conjunctivae: conjunctivae normal Sclerae: sclerae normal Pupils: Equal, round and reactive pupils present EOM: EOMs intact bilaterally Direct Ophthalmoscopy: No no photophobia Neck Neck: Yes no lymphadenopathy, No tender and Yes no JVD Thyroid: Thyroid normal Carotids: no bruits Chest Chest palpation & inspection: no tenderness Resp Effort & Inspection: normal respiratory effort, no audible wheezes, not labored and no stridor Auscultation: no crackles, no rales, no rhonchi and no wheezes Cardio Jugular venous distension: no JVD Rate: regular rate, not bradycardic and not tachycardic Rhythm: regular rhythm Bruits: no carotid bruits Peripheral pulses: Peripheral pulses 2+ throughout GI Inspection: Yes normal to inspection, No abdominal wall ecchymosis and No visible herniation Palpation (GI): Soft to palpation, nontender, no guarding, not rigid and No hepatosplenomegaly present Auscultation: normoactive bowel sounds General: Yes no CVA tenderness Back/Spine/Pelvis Back: no CVA tenderness and No back tenderness Cervical Spine: cervical ROM normal Thoracic/Lumbar Spine: thoracic and lumbar spine normal to inspection, straight leg raise negative bilaterally, No thoraco-lumbar ROM limited and No lumbar spinal tenderness Skin Lesions: no lesions Rashes: no rashes Wounds: no wounds Neuro General: oriented to person, oriented to place, patient oriented x3, CN's II-XI intact bilaterally and No confusion Cranial nerves: Yes Equal, round and reactive pupils present and Yes Normal accommodation reflex present Cognition (Neuro): normal cognition Speech: No Abnormal speech present Gait exam (Neuro): Normal gait present Motor exam (neuro): 5/5 motor strength present throughout Extrem Right upper extremity: full ROM; no cyanosis Left upper extremity: full ROM; no cyanosis Right lower extremity: no edema Left lower extremity: no edema Psych Appearance: grossly normal Mental Status: mental status grossly normal Affect: normal affect Attitude: cooperative Thought process: Normal thought process present Coding Level of Care Code Est Pt Prev Care >65y(64112) Diagnoses Annual physical exam Z00.00 Screening for diabetes mellitus (DM) Z13.1 Bipolar disorder, in full remission, most recent episode depressed F31.76 Active/Remission status: in full remission Most recent bipolar episode type: depressed Hypothyroidism, unspecified type E03.9 Hypothyroidism type: unspecified Hammer toe of right foot M20.41 Left wrist pain M25.532 Additional Codes PHQ-9 - 74848 - PHQ-9 Billing: Yes ([id number]) Assessment & Plan Assessment & Plan (1) Annual physical exam: Code(s): Z00.00 - Encounter for general adult medical examination without abnormal findings Category: Medical Plan: As per HPI (2) Screening for diabetes mellitus (DM): Code(s): Z13.1 - Encounter for screening for diabetes mellitus Category: Medical Plan: As per HPI (3) Bipolar disorder: Code(s): F31.9 - Bipolar disorder, unspecified Category: Medical Qualifiers: Active/Remission status: in full remission Most recent bipolar episode type: depressed Qualified Code(s): F31.76 - Bipolar disorder, in full remission, most recent episode depressed Plan: Patient followed by Psychiatry, continues on lithium with good mood stabilization. Will continue to follow lithium level to ensure in stable range. (4) Hypothyroidism: Code(s): E03.9 - Hypothyroidism, unspecified Category: Medical Qualifiers: Hypothyroidism type: unspecified Qualified Code(s): E03.9 - Hypothyroidism, unspecified Plan: Patient's most recent TSH has been stable. Will continue current dose of levothyroxine 137 mcg. (5) Hammer toe of right foot: Code(s): M20.41 - Other hammer toe(s) (acquired), right foot Category: Medical Plan: Patient has been bothered by hammertoe her right foot. She would like to see a label stamper for further evaluation and possible surgical treatment. (6) Left wrist pain: Code(s): M25.532 - Pain in left wrist Category: Medical Plan: Patient reporting left wrist pain after her colonoscopy, she is interested in getting x-ray. Will consider physical therapy Orders: Orders Complete Blood Count no Diff 10/20/24 K21.9 - Gastro-esophageal reflux disease without esophagitis TSH reflex Free T4 10/20/24 E03.9 - Hypothyroidism, unspecified Comprehensive Metter. Panel Fast 10/20/24 Z13.1 - Encounter for screening for diabetes mellitus Vitamin D 25-OH Total 10/20/24 E55.9 - Vitamin D deficiency, unspecified [place] 10/20/24 F31.76 - Bipolar disorder, in full remission, most recent episode depressed Referrals Podiatry Referral M20.41 - Other hammer toe(s) (acquired), right foot Pain Management Referral M53.3 - Sacrococcygeal disorders, not elsewhere classified
[2024-10-20 14:01] VITALS: BP 118/70
--- OUTSIDE RECORDS SUMMARY | 2024-10-20 15:53 | XMS_ITS | Patient Health Record ---
Author Organization [facility] Address [address] [place] [address] Care Team Providers Care Bilingual Executive Assistant Name Role Phone Cal Cole Primary Care Provider Unavailab Brooke Bridges Unavailable [phone] Allergies Allergen (clinical drug ingredient) Drug/Non Drug [...] Once a day for 30 day(s) Active [place] Carbonate ER 450 MG 1 tablet at [...] Problem Acquired hammer toe of right foot (1698912111554319) Other hammer toe(s) (acquired), right foot (M20.41) Active confirmed Problem Acquired hallux valgus (70643310) Hallux valgus (acquired), left foot (M20.12) Active confirmed Problem Acquired hammer toe of left foot (8373939840005314) Other hammer toe(s) (acquired), left foot (M20.42) Active confirmed Problem Acquired hallux valgus (81979913) Hallux valgus (acquired), right foot (M20.11) Active confirmed Decision for Hospitalizat ion/WCC/Tracie r surgery (5),Rx drug management Problem Acquired hammer toe of right foot (4603589672621780) Other hammer toe(s) (acquired), right foot (M20.41) Active confirmed Problem Acquired hammer toe of left foot (2034092373486617) Other hammer toe(s) (acquired), left foot (M20.42) Active confirmed Problem [id number] Hammer toe of right foot (M20.41) Active confirmed Problem 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
== END 2024-10-20 16:05 | disposition home or self-care (01) ==
LOC: HO.HMCH 13:28
PROVIDERS: PCP Physician Assistant; Visit Provider Physician Assistant
DX: Z00.00 Encounter for general adult medical examination without abnormal findings (principal); Z13.1 Encounter for screening for diabetes mellitus; F31.76 Bipolar disorder, in full remission, most recent episode depressed; E03.9 Hypothyroidism, unspecified; M20.41 Other hammer toe(s) (acquired), right foot; M25.532 Pain in left wrist

== ENCOUNTER 2024-10-20 13:27 | Outpatient (REF) | payer OTHER, SELFPAY ==
--- NOTE | ~2024-10-20 | XR_ITS ---
EXAMINATION: XR WRIST, LEFT CLINICAL INFORMATION: M25.532 - Pain in left wrist COMPARISON: None available. TECHNIQUE: PA, lateral, oblique and spot scaphoid views of the left wrist. FINDINGS: There is no joint space narrowing or diastases. There is no abnormal offset of the proximal carpal row. No fracture line is identified. There are marginal osteophytes and mild joint space narrowing involving the first carpal metacarpal joint. There is 2 mm ulnar minus variance. XR/XR wrist LT w scaphoid IMPRESSION: First CMC joint osteoarthritis. 2 mm ulnar minus variance without evidence of lunatomalacia. Electronically signed by: Adrian Rasmussen MD 10/20/2024 03:18 PM EDT
== END 2024-10-20 13:28 | disposition home or self-care (01) ==
LOC: HO.XRAY 13:27
PROVIDERS: PCP Physician Assistant; Visit Provider Physician Assistant
DX: Z00.00 Encounter for general adult medical examination without abnormal findings (principal); F31.76 Bipolar disorder, in full remission, most recent episode depressed; E03.9 Hypothyroidism, unspecified; M20.41 Other hammer toe(s) (acquired), right foot; M25.532 Pain in left wrist; M53.3 Sacrococcygeal disorders, not elsewhere classified; Z13.1 Encounter for screening for diabetes mellitus
CPT/HCPCS: 73110; 96127

== ENCOUNTER → 2024-10-20 14:13 | Outpatient (BNV) | payer OTHER, SELFPAY | PROVIDERS: PCP Physician Assistant; Visit Provider Radiology Diagnostic Radiology | DX: M18.12 Unilateral primary osteoarthritis of first carpometacarpal joint, left hand (principal) | CPT/HCPCS: 73110 ==

== ENCOUNTER 2024-11-26 09:08 | Outpatient (REF) | payer OTHER, SELFPAY ==
--- OUTSIDE RECORDS SUMMARY | 2023-08-25 10:20 | XMS_ITS ---
Author Organization [facility] Address [address] [address] Care Team Providers Care Solutions Consultant Name Role Phone Cal Cole Primary Care Provider UnavailElier Boland [phone] REASON FOR VISIT Patient presents today for a recall colonoscopy Encounters Encounter Location Date Provider Diagnosis [facility] [address] [address] 08/25/2023 Elier Thompson Plan Of Treatment No Information Progress Notes * TIFFANY LOMASOB:[birth year] (64 yo F)Acc No.[id number]:08/25/2023 Progress Notes Patient: GUIDO SY Provider: Wade Thompson MD :1960 A ge:63 Y S ex:Female Date:08/25/2023 Address:[address] [place], [place] [id number] Pcp:Cal Cole Subjective: * Chief Complaints: * [...] 08/25/2023 Generated for Robeli ng/Faraynag/eTransmitting on: 0 11/26/2024 09:10 AM EDT
--- OUTSIDE RECORDS SUMMARY | 2024-11-26 09:11 | XMS_ITS | Patient Health Record ---
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 . . 2-3x/week; Duration: 3-4 weeks 11/06/2022 Not-Taking Night Splint AFO - L1930 1 wear when at rest; Duration: 30 days Active [place] Carbonate ER 450 MG 1 tablet at bedtime Orally Once a day; Duration: 30 day(s) Active Tamsulosin HCl 0.4 MG 1 capsule Orally O nce a day; Duration: 30 day(s) Active Vitamin D3 50 MCG (1999) 1 capsule Or ally Once a day; Duration: 30 day(s) Active Levothyroxine Sodium 137 MCG/ML 1 mL in the morning before breakfast Orally Once a day; Duration: 30 day(s) Active Cephalexin 500 MG 1 capsule Orally twice a day; Duration: 10 days 10/16/2022 Not-Taking Walker - as directed Not-Taki ng Flexeril 10 mg Active Aspirin 81 MG 1 tablet Orally Once a day; Duration: 30 day(s) Not-Taking Cyclobenzaprine HCl 10 MG 1 tablet at be dtime as needed Orally Once a day; Duration: 30 day(s) Not-Taking oxyCODONE HCl 5 MG 1 tablet as needed Orally every 6 hrs; Duration: 3 days 09/18/2022 Not-Taking Social History Tobacco Use: Social History Observation Description Date Details (start date - stop date) Never Smoker NA - NA Tobacco use other than smoking: Question Answer Notes Are you an other tobacco user? No Tobacco Control (Standard) Question Answer Notes Tobacco use: Nonsmoker Additional Findings: Tobacco non-user Current no nsmoker AUDIT-C (Standard) Question Answer Notes Did you have a drink containing alcohol in the p ast year? No Points 0 Interpretation Negative Problems Problem Type SNOMED Code ICD Code Onset Dates Problem Status W/U Status Risk Notes Problem Information temporarily unavailable Other hammer toe(s) (acquired), right foot (M20.41) Active confirmed Problem Information temporarily unavailable Hallux valgus (acquired), left foot (M20.12) Active confirmed Problem Information temporarily unavailable Other hammer toe(s) (acquired), left foot (M20.42) Active confirmed Problem Information temporarily unavailable Hallux valgus (acquired), right foot (M20.11) Active confirmed Decision for Hospitalizati on/C/Major surgery (5),Rx drug management Problem Information temporarily unavailable Other hammer toe(s) (acquired), right foot (M20.41) Active confirmed Problem Information temporarily unavailable Other hammer toe(s) (acquired), left foot (M20.42) Active confirmed Problem Information temporarily unavailable Hammer toe of right foot (M20.41) Active confirmed Problem Information temporarily unavailable 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 Problem Information temporarily unavailable Arthritis of joint of lesser toe, left (M19.072) Active confirmed Vital Signs Height 5ft 1in in 11/10/2024 Weight 138 lbs 11/10/2024 BMI 26.07 kg/m2 11/10/2024 Encounters Encounter Location Date Provider Diagnosis [facility] [place] [address] [place] [address] 11/10/2024 Berenice Agudelo Pain in left toe(s) M79.675 ; Other hammer toe(s) (acquired), left foot M20.42 ; Arthritis of joint of lesser toe, 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 and Subluxation of metatarsophalangeal joint of toe, initial encounter S93.149A [facility] [address] [place] [address] 11/10/2024 [facility] [place] [address] [place] [address] 11/11/2024 [facility] Encounter Date Diagnosis (ICD Code) Assessment Notes Treatment Notes Treatment Clinical Notes Section Notes 11/10/2024 Pain in left toe(s) (ICD-10 - M79.675) 11/10/2024 Other hammer toe(s) (acquired), left foot (ICD-10 - M20.42) 11/10/2024 Arthritis of joint o f lesser toe, left (ICD-10 - M19.072) 11/10/2024 Subluxation of metatarsophalangeal joint of toe, initial encounter (ICD-10 - S93.149A) Plan Of Treatment Pending Test Test Name Order Date X ray : Foot, left 3V 11/10/2024 X ray : Foot, right 3V 11/19/2022 Next Appt Details Provider Name:Berenice hines, 12/12/2024 01:30:00 PM, [address] [place] [address], [phone], Provider Name:Berenice hines, 12/28/2024 07:30:00 AM, [address] [place], [address], Provider Name:Berenice hines, 01/02/2025 01:30:00 PM, [address] [place] [address], [phone], Provider Name:Berenice hines, 01/11/2025 01:30:00 PM, [address] [place] [address], [phone], Provider Name:Berenice Kay donny, 01/26/2025 01:30:00 PM, [address] [facility], [place], [address], Insurance Providers Payer Name Payer Address Payer Phone Subscriber Number Group Number Insured Name Patient Relationship to Insured Coverage Start Date Coverage End Date [employer] [place] [employer]vantage [facility] [address] [place] [address] [id number] Lora Estevez Self - patient is the insured 4 Medical (General) History Medical History History ICD [...]
[2024-11-26 09:40] LABS: Hematocrit 38.7 % (37.0-47.0); Hemoglobin 13.0 g/dl (12.0-16.0); Mean Corpuscular HGB Conc 33.6 g/dl (31.0-35.0); Mean Corpuscular Hemoglobin 30.8 pg (27.0-33.0); Mean Corpuscular Volume 91.7 fL (80.0-98.0); NRBC Abs Auto 0.000 X10*3/uL (0.0-0.012); NRBC Pct Auto 0.0 /100WBC (0.0-0.2); Platelet Count 275 X10*3/uL (160-400); Red Blood Count 4.22 X10*6/uL (4.20-5.50); White Blood Count 12.0 X10*3/uL (4.8-10.8)
[2024-11-26 10:10] LABS: Lithium 0.41 mmol/L (0.60-1.20)
[2024-11-26 10:27] LABS: Alanine Aminotransferase 15 U/L (0-31); Albumin Level 4.7 g/dL (3.5-5.0); Alkaline Phosphatase 84 U/L (39-117); Anion Gap 12 (12-20); Aspartate Amino Transferase 18 U/L (5-31); Blood Urea Nitrogen 18 mg/dL (9-16); Calcium 9.5 mg/dL (8.4-10.2); Carbon Dioxide 22 mmol/L (22-29); Chloride 109 mmol/L (96-108); Estimated Glomerular Filt Rate > 60; Potassium 4.4 mmol/L (3.3-5.1); Sodium 139 mmol/L (135-145); Total Protein 7.2 g/dL (6.5-8.0)
== END 2024-11-26 09:09 | disposition home or self-care (01) ==
LOC: HO.LAB 09:08
PROVIDERS: PCP Physician Assistant; Visit Provider Physician Assistant
DX: Z13.1 Encounter for screening for diabetes mellitus (principal); F31.76 Bipolar disorder, in full remission, most recent episode depressed; K21.9 Gastro-esophageal reflux disease without esophagitis; E03.9 Hypothyroidism, unspecified; E55.9 Vitamin D deficiency, unspecified
CPT/HCPCS: 36415; 80053; 80178; 82306; 84443; 85027

== ENCOUNTER 2024-12-13 12:35 | Outpatient (AMB) | payer OTHER, SELFPAY ==
--- OUTSIDE RECORDS SUMMARY | 2023-08-25 10:20 | XMS_ITS ---
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 Patient presents today for a recall colonoscopy. * Medical History: Objective: * Vitals: Assessment: Plan: * Treatment: * * The named appointment provid er may or may not be the originator of this progress note, and it is not deemed complete until electronically signed by the appointment provider. Sign off status: Pending * Provider: Wade Thompson MD Date: 0 08/25/2023 Generated for Robeli ng/Faraynag/eTransmitting on: 0 12/13/2024 01:21 PM EDT
--- OUTSIDE RECORDS SUMMARY | 2024-12-12 09:30 | XMS_ITS ---
Author Organization [facility] Address [address] [place] [address] Care Team Providers Care Gis Scientist Name Role Phone Cal Cole Primary Care Provider Unavailab Brooke Bridges Unavailable [phone] Berenice Agudelo Unavailable [phone] Allergies Allergen (clinical drug ingredient) Drug/Non Drug [...] Active oxcarbazepine Oxcarbazepine Unknown Drug Allergy Active REASON FOR VISIT Painful Toe(s) Medications Medication SIG (Take, Route, Frequency, Duration) Notes Start Date End Date Status Cephalexin 500 MG 1 capsule Orally twice a day; Duration: 10 days 10/16/2022 Not-Taking Cyclobenzaprine HCl 10 MG 1 tablet at be dtime as needed Orally Once a day; Duration: 30 day(s) Not-Taking Aspirin 81 MG 1 tablet Orally Once a day; Duration: 30 day(s) Not-Taking oxyCODONE HCl 5 MG 1 tablet as needed Orally every 6 hrs; Duration: 3 days 09/18/2022 Not-Taking Walker - as directed Not-Taki ng [place] Carbonate ER 450 MG 1 tablet at bedtime Orally Once a day; Duration: 30 day(s) Active Levothyroxine Sodium 137 MCG/ML 1 mL in the morning before breakfast Orally Once a day; Duration: 30 day(s) Active Vitamin D3 50 MCG (1999 UT) 1 capsule Or ally Once a day; Duration: 30 day(s) Active Night Splint AFO - L1930 1 wear when at rest; Duration: 30 days Active Physical Therapy . . . 2-3x/week; Duration: 3-4 weeks 11/06/2022 Not-Taking Flexeril 10 mg Active Tamsulosin HCl 0.4 MG 1 capsule Orally O nce a day; Duration: 30 day(s) Active Social History Tobacco Use: Social History Observation [...] ast year? No Points 0 Interpretation Negative Vital Signs Height 5ft 1in in 12/12/2024 Weight 138 lbs 12/12/2024 BMI 26.07 kg/m2 12/12/2024 Blood pressure systolic 120 mm Hg 12/13/19 25 Blood pressure diastolic 70 mm Hg 025 Encounters Encounter Location Date Provider Diagnosis [facility] [address] [address] 12/12/2024 Berenice Agudelo Pain in left toe(s) M79.675 ; Other hammer toe(s) (acquired), left foot M20.42 ; Arthritis of joint of lesser toe, 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 and Subluxation of metatarsophalangeal joint of toe, initial encounter S93.149A Assessments Encounter Date Diagnosis (ICD Code) Assessment Notes Treatment Notes Treatment Clinical Notes Section Notes 12/12/2024 Pain in left toe(s) (ICD-10 - M79.675) 12/12/2024 Other hammer toe(s) (acquired), left foot (ICD-10 - M20.42) 12/12/2024 Arthritis of joint o f lesser toe, left (ICD-10 - M19.072) 12/12/2024 Subluxation of metatarsophalangeal joint of toe, initial encounter (ICD-10 - S93.149A) Plan Of Treatment Next Appt Details Follow Up: prn, Reason: post op Provider Name:Berenice hines, 12/28/2024 07:30:00 AM, [address] [place], [address], Provider Name:Berenice hines, 01/02/2025 01:30:00 PM, [address] [place] [address], [phone], Provider Name:Berenice hines, 01/11/2025 01:30:00 PM, [address] [place] [address], [phone], Provider Name:Berenice hines, 01/26/2025 01:30:00 PM, [address] [place] [address], [phone], Progress Notes * Lora LOMAS ADOB: (64 yo F)Acc No.[id number]:12/12/2024 Progress Note Patient: Suzie DAIN Lora Terra Provider: Lucila Agudelo DPM :1960 A ge:64 Y S ex:Female Date:12/12/2024 Address:[address] [place], [place] [id number] Pcp:Cal Cole Subjective: * Chief Complaints: * P ainful Toe(s) * HPI: T oe pain: Nature: t enderness. Location: L eft foot. Duration: s everal months. Course: w orse. Aggravated by: a ny pressure, shoes. Treatments: r est/alter normal daily activity, change in shoes. * ROS: G eneral/Constitutional: Nausea d enies. V omiting d enies. H catherine Thirst d enies. L oss appetite d enies. C hills d enies. F atigue d enies.?Fever d enies. N ight Sweats d enies. U nexplained weight loss d enies. U nexplained weight gain d enies. H EENTM: Dentures d enies. D izziness d enies. G lasses/contacts d enies. R etinopathy d enies. B lurred/double vision d enies. T MJ?denies. D ischarge/drainage d enies. I mplants d enies. S ore throat d enies. D ental implants d enies. H jani of hearing d enies. D ifficulty chewing/swallowing/speaking d enies. N ose bleeds d enies. S ore mouth d enies. ? R espiratory: On Oxygen d enies. P neumonia/pleurisy d enies.?Bronchitis d enies. E mphysema d enies. C oughing d enies. C ough blood?denies. S hortness of breath d enies. W heezing d enies. C ardiovascular: Pacemaker d enies. M VALVE SEATER OPERATOR d enies. W PW d enies. C HF d enies. H eart attack d enies. S eptal defect d enies. R apid beat d enies. C hest pain d enies. A trial Fib. d enies. M urmur/Palpitations d enies. G astrointestinal: Hemorrhoids d enies. S tomach/Abdominal pain d enies. D ark blood stool d enies. I rritable bowel d enies. C onstipation d enies. D iarrhea d enies. H ematology: Swelling d enies. C lots d enies. V aricose Veins d enies. B ruising d enies. B leeding problem d enies. G enitourinary: Blood urine d enies. F requent/Painfu/urination/bladder control d enies. K idney stones d enies. I nfection (UTI) d enies. N ephropathy d enies. s ex trans dis (STD) d enies. P rostate d enies. M usculoskeletal: Hammertoes d enies. B unions d enies. B ack Pain d enies. M uscle Cramps/ Resting d enies. M uscle cramps / walking d enies.?Generalized aches and pains d enies. W eakness d enies. I nteg.: Aviles d enies. S cars d enies. C orns/calluses?admits. I ngrown nails d enies. P ainful nails d enies. O pen Sores d enies. R ashes d enies. N eurologic: Difficulty sleeping d enies. B rain disorder d enies. N umbness d enies. B alance trouble d enies. C onfusion d enies. F ainting/blackouts d enies. T ingling d enies. T remors d enies. * Medical History: * Surgical History: a ppendectomy wire implants in back 2019carpal tunnel surgery 02/1978cholecystectomy 1983pilonidal cyst excision foot surgery - bunion and hardware 2016Laparoscopy tonsillectomy 1986Ablation treatment spinal cord stimulator Claudio w/ orif right 09/24/2022 * Hospitalization/Major Diagno stic Procedure: D enies Past Hospitalization * Family History: M other: alive, kidney/liver disease, diagnosed with Unspecified essential hypertension, Unspecified cerebral artery occlusion with cerebral infarction. F ather: alive, cardiovascular, asthma, stroke, diabetes. S iblings: Lupus. * Social History: T obacco Use: T obacco use other than smoking A re you an other tobacco user? N o Tobacco Control (Standard) T obacco use: N onsmoker A dditional Findings: Tobacco non-user C urrent nonsmoker D rugs/Alcohol: D rugs H ave you used drugs other than those for medical reasons in the past 12 months? N o M iscellaneous: C affeine: yes, frequency:,, 2-3 cups per day. Children: yes, 1. Exercise: no, walking dogs. Marital status: . 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 D rug/Alcohol: A SUNDAY-C (Standard) D id you have a drink containing alcohol in the past year? N o P oints 0 I nterpretation N egative * Medications: T akingFlexeril , Notes to Pharmacist: 10 mgTamsulosin HCl 0.4 MG Capsule 1 capsule Orally Once a day [place] Carbonate ER 450 MG Tablet Extended Release 1 tablet at bedtime Orally Once a day Levothyroxine Sodium 137 MCG/ML Solution 1 mL in the morning before breakfast Orally Once a day Vitamin D3 50 MCG (1999 UT) Capsule 1 capsule Orally Once a day Night Splint AFO - L1930 1 wear when at rest Taking Flexeril , Notes to Pharmacist: 10 mgTaking Tamsulosin HCl 0.4 MG Capsule 1 capsule Orally Once a day Taking [place] Carbonate ER 450 MG Tablet Extended Release 1 tablet at bedtime Orally Once a day Taking Levothyroxine Sodium 137 MCG/ML Solution 1 mL in the morning before breakfast Orally Once a day Taking Vitamin D3 50 MCG (1999 UT) Capsule 1 capsule Orally Once a day Taking Night Splint AFO - L1930 1 wear when at rest Not-Taking/PRNPhysical Therapy . . . . 2-3x/week oxyCODONE HCl 5 MG Tablet 1 tablet as needed Orally every 6 hrs Walker - Miscellaneous as directed Cephalexin 500 MG Capsule 1 capsule Orally twice a day Cyclobenzaprine HCl 10 MG Tablet 1 tablet at bedtime as needed Orally Once a day Aspirin 81 MG Tablet Chewable 1 tablet Orally Once a day Medication List reviewed and reconciled with the patientNot- Taking/PRN Physical Therapy . . . . 2-3x/week Not-Taking/PRN oxyCODONE HCl 5 MG Tablet 1 tablet as needed Orally every 6 hrs Not-Taking/PRN Walker - Miscellaneous as directed Not-Taking/PRN Cephalexin 500 MG Capsule 1 capsule Orally twice a day Not- Taking/PRN Cyclobenzaprine HCl 10 MG Tablet 1 tablet at bedtime as needed Orally Once a day Not-Taking/PRN Aspirin 81 MG Tablet Chewable 1 tablet Orally Once a day Medication List reviewed and reconciled with the patient * Allergies: O xcarbazepineAcetaminophenCodeine: itching, nauseaErythromycin: stomach painBiaxin: stomach painTrileptal: redness, double visionAzithromycin: stomach pain - Allergyyes[Allergies Verified] Objective: * Vitals: H t:5ft 1in, Wt:138, BMI:26.07, Shoe size:8.5W, BP:120/70mm Hg, Ht-cm: 154.94 cm, Wt-k.6 kg. * Examination: O rthopedic: MUSCLE STRENGTH: 5 /5 all groups in a symmetrical fashion , B/L. DIGITAL DEFORMITIES: D igital contracture, PIPJ, 2-5 B/L, incompl-reducible with WB, or to push-up test, no over, nor underlapping, Reveals pain/swelling/redness/enlargement of PIPJ T1. FOOTWEAR EVALUATION: shoe gear properties exacerbate patients foot/toe deformity. G eneral Examination: GENERAL APPEARANCE: Wade flores a pleasant, alert, well-nourished, well-developed, well hydrated individual, who demonstrates proper attention to hygiene/body habitus, and is in no acute distress, Pt serves as own h istorian for office visit today. ORIENTED: p erson, place, and time. N eurological: SENSORY: N eurological exam reveals intact sensorium, pain sensation normal, vibration sensation intact, pinprick sensation is normal in the lower extremities, Pt denies, anesthesia, burning, paresthesia, tingling, B/L. DEEP TENDON REFLEXES: A chilles, 2/4, B/L. V ascular: DP PULSES (B): 3 /4, B/L. PT PULSES (B): 3 /4, B/L. CAPILLARY FILL TIME: i mmediate, all digits, B/L. TROPHIC CONDITION-TEXTURE/ELASTICITY/TURGOR/HAIR GROWTH (B):?normal, B/L. TEMPERTURE GRADIENT (C): w arm to cool, proximal to distal, B/L. PIGMENTATION: n ormal, B/L. EDEMA (C): a bsent, B/L. D ermatologic: SKIN FINDINGS: S kin exam reveals normal texture, elasticity, and turgor. There are no masses. The interspaces are clear. Assessment: * Assessment: 1. P ain in left toe(s) - M79.675 (Primary) 2 . O ther hammer toe(s) (acquired), left foot - M20.42 S pecify :Decision for surgery (4) 3 . A rthritis of joint of lesser toe, left - M19.072 4 . S ubluxation of metatarsophalangeal joint of toe, initial encounter - S93.149A Plan: * Treatment: * Procedure Codes: * Preventive Medicine: Counseling: D iscussion: - 14: Office or other outpatient visit for the evaluation and management of an established patient, which required a medically appropriate history and/or examination and MODERATE level of DECISION MAKING for: 1 OR MORE CHRONIC PROBLEM(S) THATS WORSENING, 2 STABLE CHRONIC PROBLEMS, A NEWLY DIAGNOSED PROBLEM WITH UNCERTAIN PROGNOSIS, AN ACUTE COMPLICATED INJURY WITH MULTIPLE TREATMENT OPTIONS, OR AN ACUTE PROBLEM WITH ACCOMPANYING SYSTEMIC SYMPTOMS, THAT POSE(S) A MODERATE RISK OF MORBIDITY. THIS CONDITION MAY ALSO INCLUDE RX DRUG MANAGEMENT, OR A DECISON FOR MINOR SURGERY. The visit on the day of the encounter encompassed interpreting the data and educating the patient as to the nature of their condition, treatment options available according to their individual PMH, meds, allergies, and overall health/living conditions, as well as any potential risks or complications that may occur from a failure to adhere to, and participate in, the recommended course of therapy. The discussion included a complete verbal, and/or written explanation of the examination results, any x-rays taken, the proposed diagnosis, and outline of the treatment plan. A schedule for future care needs was also explained. The patient verbalized an understanding of the instructions at this time and agreed to be an active participant in their treatment. If the patient should think of any questions or concerns after the visit, I have encouraged the patient to call the office. D igital Surgery: Natty parada discussed surery by digital arthroplasty. Consent was obtained for this procedure we discussed the usual post operative course. , No guarantees were given or implied. We discussed the potential procedure complications including, but not limited to: pain, swelling, bleeding, scarring, numbness, infection, delayed/non healing, floppy/unstable/shorthened toe, recurrence, failure of the procedure, overcorrection leading to plantarflexed/downward positioned toe, recurrence, need for further surgery, as well as the possibility for loss of the toe itself. We discussed the use of local anesthesia, and the usual post-op course for healing. No guarentees were given. The patient verbally indicated a full understanding of the above conversation, and any other of their questions were answered to their satisfaction. Alternatives to the procedure were also discussed, including conservative care. I also discussed the usual post-operative course and gave no guarantees regarding outcome. Plan for surgery 12/28/2024. Screening/Special Tests: F all Risk Screening: N o falls in the past year F ALLS: Screening for Future Fall Risk Have you had any falls with injury in the past year? N o * Follow Up: p rn (Reason: post op) * Images: * Sign off status: Completed true * Provider: Lucila Agudelo DPM Date: 12/12/2024 Generated for Printi ng/Faxing/eTransmitting on: 12/13/2024 01:21 PM EDT History and Physical Notes * HPI (History of Present Illness) Category Sub-Category Detail Notes Category Not es Toe pain Nature: tenderness Location: Left foot Duration: several months Course: worse Aggravated by: any pressure, shoes Treatments: rest/alter normal da jenny activity, change in shoes Examination Category Sub-Category Detail Notes Category Not es Neurological SENSORY: Neurological exa m reveals intact sensorium, pain sensation normal, vibration sensation intact, pinprick sensation is normal in the lower extremities, Pt denies, anesthesia, burning, paresthesia, tingling, B/L DEEP TENDON REFLEXES: Achilles, 2/4, B/L Dermatologic SKIN FINDINGS: Skin exam reveal s normal texture, elasticity, and turgor. There are no masses. The interspaces are clear Orthopedic FOOTWEAR EVALUATION: shoe gear p roperties exacerbate patients foot/toe deformity DIGITAL DEFORMITIES: Digital contracture , PIPJ, 2-5 B/L, incompl-reducible with WB, or to push-up test, no over, nor underlapping, Reveals pain/swelling/redness/enlargement of PIPJ T1 MUSCLE STRENGTH: 5/5 all groups in a symmetrical fashion , B/L General Examination GENERAL APPEARANCE: Reveals a pleasant, alert, well- nourished, well-developed, well hydrated individual, who demonstrates proper attention to hygiene/body habitus, and is in no acute distress, Pt serves as own historian for office visit today ORIENTED: person, place, and t brooks [facility] DP PULSES (B): 3/4, B/L PT PULSES (B): 3/4, B/L CAPILLARY FILL TIME: immediate, all digi ts, B/L TEMPERTURE GRADIENT (C): warm to cool, p roximal to distal, B/L TROPHIC CONDITION-TEXTURE/ELASTICITY/TURGOR/HAIR GROWTH (B): normal, B/L EDEMA (C): absent, B/L PIGMENTATION: normal, B/L
--- NOTE | 2024-12-13 12:44 | MHC.PC.OV ---
Vital Signs 12/13/24 12:46 Height 5 ft 2 in Weight 136 lb 4 oz BMI 24.9 BP 108/62 Blood Pressure Location Lt brachial Position Sitting Pulse 94 Pulse Source Pulse Oximeter Temp 97.1 F Temp Source Temporal Artery Scan Pulse Oximetry (%) 96 Oxygen Delivery Method Room Air [facility] Intake Note: Patient is here for a Pre-op for Hammer toe surgery scheduled with Dr Reyes ([facility]) on 12/28/24. Pt require EKG for clearance, lab already done. Photo Studio Assistant Required: No Liquid Yeast Supervisor: Not Required per policy Accompanied by: Self / Same As Patient Allergies oxcarbazepine (From Trileptal) Allergy (Severe, Verified 12/13/24 13:03) Hives,itching,rash, double vision codeine Allergy (Mild, Verified 12/13/24 13:03) Itching oral steroid Allergy (Mild, Uncoded 12/13/24 13:03) suicidal Medication List - Last Reconciled 12/13/24 by Cal Cole PA-C acetaminophen (Tylenol Extra Strength) 500 mg PO Q6H PRN cholecalciferol (vitamin D3) 50 mcg PO DAILY cyclobenzaprine 10 mg PO TID PRN 10 days levothyroxine 137 mcg PO DAILY 90 days lithium carbonate ER 450 mg PO TID 90 days Tobacco use date assessed: 12/13/24 Fall risk assessment: No Falls in past year Last assessed Fall Risk: 12/13/24 Dental Screening Dental Screen Date: 10/20/24 [facility] 12/28 HPI Details Patient is a 64-year-old female here today for preop visit. Patient is due for right hammertoe surgery on 12/28/2024. Otherwise patient has no past medical history of OR, Congestive heart failure or CVA. Patient's most recent labs, EKG and vitals are stable. [facility] Medical History Annual physical exam Screening for diabetes mellitus (DM) Breast pain, left Pre-op chest exam Screening for hypercholesterolemia Screening for hyperlipidemia Screening for diabetes mellitus (DM) Osteoarthritis Bipolar disorder Low back pain Asthma Hx of hepatitis C Hyperparathyroidism Vitamin D deficiency Multinodular thyroid Sacroiliac joint dysfunction Chronic pain syndrome AXEL positive Surgical History History of bunionectomy History of carpal tunnel release History of back surgery Hx of prior ablation treatment History of excision of pilonidal cyst History of foot surgery History of appendectomy History of laparoscopy History of cholecystectomy History of tonsillectomy History of section Family History Father Asthma CVD (cardiovascular disease) Stroke Diabetes Mother Healthy adult Sister Lupus Social History Household Members: Family Housing: House Are you a primary health care technician to a significant other at home: No Do you presently have visiting nurse or other home services: No Alcohol intake: never Patient Tobacco Use Status: Former Tobacco user Tobacco use type: Cigarette Years Smoked: 3 quit age 18 e-Cigarette/Vaping Use: Never Used Second Hand Smoke Exposure: Yes service: No Current occupational status: retired and disabled 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 Elier Carrion, Ignacia Weaver, Fermin Lorenzana and colleagues, with an educational woo from [employer]. Review of Systems Const Denies headache(s) Eyes Denies loss of vision ENT Denies vertigo, Denies dizziness, Denies headache(s) and Denies sore throat Card Denies chest pain, Denies leg edema and Denies lightheadedness Resp Denies cough, Denies hemoptysis and Denies wheezing GI Denies abdominal pain, Denies melena, Denies constipation, Denies diarrhea and Denies vomiting Denies urinary frequency, Denies dysuria and Denies urinary urgency Musc Denies arthralgias, Denies joint swelling, Denies numbness and Denies tingling Neuro Denies Abnormal speech present, Denies behavioral changes, Denies vertigo, Denies dizziness, Denies headache(s), Denies loss of vision, Denies memory loss, Denies numbness and Denies tingling Psych Denies anxiety, Denies behavioral changes, Denies depression, Denies memory loss and Denies panic attacks Lv/Lymph Denies easy bleeding and Denies easy bruising Aller/Immun Denies wheezing Physical exam (Primary Care) Vital Signs: Last Vital Signs Temp 97.1 F 12/13/24 12:46 Pulse 94 12/13/24 12:46 BP 108/62 12/13/24 12:46 Pulse Ox 96 12/13/24 12:46 Oxygen Delivery Method Room Air 12/13/24 12:46 BMI result Body Mass Index 24.9 Tobacco/Smoking Status: Tobacco use Status Tobacco use date assessed 12/13/24 12/13/24 12:49 Patient Tobacco Use Status Former Tobacco user 12/13/24 12:49 Tobacco use type Cigarette 12/13/24 12:49 e-Cigarette/Vaping Use Never Used 12/13/24 12:49 Thrive Assessment: Date of Thrive Assessment Date Thrive assessed 10/20/24 12/13/24 12:49 Const General: healthy appearing, no acute distress, alert and awake Nutritional Appearance: well nourished Orientation/consciousness: oriented to person, oriented to place and oriented to time HENMT Ears: TM's normal bilaterally General nose exam: Normal nasal mucous membranes and turbinates present Eyes Conjunctivae: conjunctivae normal Sclerae: sclerae normal Pupils: Equal, round and reactive pupils present Neck Neck: Yes no lymphadenopathy and Yes no JVD Thyroid: Thyroid normal Carotids: no bruits Resp Effort & Inspection: normal respiratory effort and not tachypneic Auscultation: no crackles, no rales, no rhonchi and no wheezes Cardio Rate: regular rate Rhythm: regular rhythm Heart sounds: no murmurs and normal S1 and S2 GI Palpation (GI): Soft to palpation, nontender, no hepatomegaly and no splenomegaly Auscultation: normal bowel sounds Skin General skin exam: no rashes or lesions noted and dry skin Neuro General: oriented to person, oriented to place and oriented to time Cranial nerves: Yes Equal, round and reactive pupils present Speech: No Abnormal speech present Gait exam (Neuro): Normal gait present Motor exam (neuro): no tremor noted Extrem Right upper extremity: full ROM Left upper extremity: full ROM Right lower extremity: full ROM; no edema Left lower extremity: full ROM; no edema Psych Mental Status: mental status grossly normal Speech and movement: Normal speech and movement present Affect: normal affect Attitude: cooperative Thought process: Normal thought process present Coding Level of Care Code Est Pt Level 3 (09083) Diagnoses Pre-op evaluation Z01.818 Hammertoe of right foot M20.41 Assessment & Plan Assessment & Plan (1) Pre-op evaluation: Code(s): Z01.818 - Encounter for other preprocedural examination Category: Medical Plan: Patient's recent labs and vitals EKG are stable. Patient is medically clear for needed hammertoe repair Patient has low CV risk for needed hammertoe repair. (2) Hammertoe of right foot: Code(s): M20.41 - Other hammer toe(s) (acquired), right foot Category: Medical Plan: As above Orders: Orders ECG 12 lead EKG Today Z01.818 - Encounter for other preprocedural examination
[2024-12-13 12:46] VITALS: BP 108/62; PULSE 94; TEMP 36.2; O2SAT 96; BMI 24.9
== END 2024-12-13 13:10 | disposition home or self-care (01) ==
LOC: HO.HMCH 12:35
PROVIDERS: PCP Physician Assistant; Visit Provider Physician Assistant
DX: Z01.818 Encounter for other preprocedural examination (principal); M20.41 Other hammer toe(s) (acquired), right foot

== ENCOUNTER → 2024-12-13 12:35 | Outpatient (REF) | payer OTHER, SELFPAY ==
--- NOTE | 2024-12-13 13:23 | ECG_ITS ---
Test Reason : preop Blood Pressure : */* mmHG Vent. Rate : 75 BPM Atrial Rate : 75 BPM P-R Int : 168 ms QRS Dur : 76 ms QT Int : 362 ms P-R-T Axes : 66 50 52 degrees QTcB Int : 404 ms Normal sinus rhythm Normal ECG When compared with ECG of 28-Sep-2018 13:11, No significant change was found Referred By: Cal Cole Electronically Signed By: GEORGIA VELA MD
== END ==
LOC: HO.CARD 12:35
PROVIDERS: PCP Physician Assistant; Visit Provider Physician Assistant
DX: Z01.818 Encounter for other preprocedural examination (principal); M20.41 Other hammer toe(s) (acquired), right foot
CPT/HCPCS: 93005

== ENCOUNTER → 2024-12-13 13:23 | Outpatient (BNV) | payer OTHER, SELFPAY | PROVIDERS: PCP Physician Assistant; Visit Provider Internal Medicine Cardiovascular Disease | DX: Z01.810 Encounter for preprocedural cardiovascular examination (principal) | CPT/HCPCS: 93010 ==

== ENCOUNTER 2025-02-22 10:31 | Outpatient (REF) | payer OTHER, SELFPAY | END 2025-02-22 10:32 | disposition home or self-care (01) | LOC: HO.MAMMO 10:31 | PROVIDERS: PCP Physician Assistant; Visit Provider Physician Assistant | DX: Z12.31 Encounter for screening mammogram for malignant neoplasm of breast (principal) | CPT/HCPCS: 77063; 77067 ==

== ENCOUNTER → 2025-02-22 10:45 | Outpatient (BNV) | payer OTHER, SELFPAY | PROVIDERS: PCP Physician Assistant; Visit Provider Internal Medicine | DX: Z12.31 Encounter for screening mammogram for malignant neoplasm of breast (principal) | CPT/HCPCS: 77063; 77067 ==

== ENCOUNTER 2025-04-11 10:05 | Outpatient (REF) | payer MEDICARE, SELFPAY ==
[2025-04-11 11:10] LABS: Hematocrit 41.0 % (37.0-47.0); Hemoglobin 13.4 g/dl (12.0-16.0); Mean Corpuscular HGB Conc 32.7 g/dl (31.0-35.0); Mean Corpuscular Hemoglobin 30.6 pg (27.0-33.0); Mean Corpuscular Volume 93.6 fL (80.0-98.0); NRBC Abs Auto 0.000 X10*3/uL (0.0-0.012); NRBC Pct Auto 0.0 /100WBC (0.0-0.2); Platelet Count 312 X10*3/uL (160-400); Red Blood Count 4.38 X10*6/uL (4.20-5.50); White Blood Count 11.8 X10*3/uL (4.8-10.8)
[2025-04-11 11:51] LABS: Alanine Aminotransferase 15 U/L (0-31); Albumin Level 4.9 g/dL (3.5-5.0); Alkaline Phosphatase 81 U/L (39-117); Anion Gap 8 (12-20); Aspartate Amino Transferase 18 U/L (5-31); Blood Urea Nitrogen 11 mg/dL (9-16); Calcium 9.8 mg/dL (8.4-10.2); Carbon Dioxide 26 mmol/L (22-29); Chloride 109 mmol/L (96-108); Estimated Glomerular Filt Rate 60; Potassium 3.9 mmol/L (3.3-5.1); Sodium 139 mmol/L (135-145); Total Protein 7.6 g/dL (6.5-8.0)
[2025-04-11 12:57] LABS: Free T4 (Free Thyroxine) 1.21 ng/dL (0.71-1.85)
== END 2025-04-11 10:06 | disposition home or self-care (01) ==
LOC: HO.LAB 10:05
PROVIDERS: PCP Physician Assistant; Visit Provider Physician Assistant
DX: Z01.818 Encounter for other preprocedural examination (principal); E04.2 Nontoxic multinodular goiter; J45.909 Unspecified asthma, uncomplicated; E55.9 Vitamin D deficiency, unspecified; E21.3 Hyperparathyroidism, unspecified; F31.76 Bipolar disorder, in full remission, most recent episode depressed; G47.00 Insomnia, unspecified; E03.9 Hypothyroidism, unspecified
CPT/HCPCS: 36415; 80053; 82306; 84439; 84443; 85027

== ENCOUNTER 2025-04-11 10:05 | Outpatient (AMB) | payer OTHER, SELFPAY ==
--- OUTSIDE RECORDS SUMMARY | 2024-02-22 06:40 | XMS_ITS ---
Author Organization [facility] Address [address] [place] [address] Care Team Providers Care Sweet Pickle Maker Name Role Phone Cal Cole Primary Care Provider Unavailab Elier Rosas Unavailable [phone] REASON FOR VISIT screening,hx polyps Problems Problem Type SNOMED Code ICD Code Onset Dates Problem Status W/U Status Risk Notes Problem Diverticular disease of colon (701365744) Diverticulosis of large intestine without perforation or abscess without bleeding (K57.30) Active confirmed Encounters Encounter Location Date Provider Diagnosis [facility] [place] [address] [place], [place] [phone] 02/22/2024 Elier Thompson Colon cancer scree bob [...] hemorrhoids (ICD-10 - K64.8) Plan Of Treatment Next Appt Details Provider Name:Elier Thompson , 04/19/2025 02:20:00 PM, [address], [address], [place], [address], Progress Notes * LAVERN LOMAS:[birth year] (65 yo F)Acc No.[id number]:02/22/2024 COLON WITH MAC Patient: GUIDO SY Provider: Wade Thompson MD :1960 A ge:64 Y S ex:Female Date:02/22/2024 Address:[address] [place] [address] Pcp:Cal Cole Subjective: * Chief Complaints: * [...] Modifiers: 1P Billing Information: * Procedure Codes: 31725 LESION REMOVAL COLONOSCOPY. Modifiers: PT 0529F INTRVL [...] MD Date: Generated for Tani corrales/Gordo/Nevinitting on: 06/11/2024 12:12 PM EST
--- OUTSIDE RECORDS SUMMARY | 2024-12-28 02:30 | XMS_ITS ---
[facility] [place] Address [address] [place] [address] Care Team Providers Care Liquid Chlorine Operator Name Role Phone Cal Cole Primary Care Provider Unavailab Berenice Aparicio Unavailable [phone] Encounters Encounter Location Date Provider Diagnosis [facility] ([facility]/[address] [address] 12/28/2024 Berenice Agudelo Plan Of Treatment No Information Progress Notes * Lora LOMAS ADOB: (65 yo F)Acc No.[id number]:12/28/2024 Patient: Suzie ROWANLora ARIAS Terra Provider: Lucila Agudelo DPM :1960 A ge:64 Y S ex:Female Date:12/28/2024 Address:[address] [place], [place] [id number] Pcp:Cal Cole * Images: * The named appointment provid er may or may not be the originator of this progress note, and it is not deemed complete until electronically signed by the appointment provider. Sign off status: Pending * Provider: Lucila Agudelo DPM Date: 0 12/28/2024 Generated for Printi ng/Faraynag/eTransmitting on: 06/11/2024 12:12 PM EST
--- OUTSIDE RECORDS SUMMARY | 2025-02-08 10:00 | XMS_ITS ---
Author Organization [facility] Address [address] [place] [address] Care Team Providers Care Beverage Sales Consultant Name Role Phone Cal Cole Primary Care Provider Unavailab Berenice Aparicio Unavailable [phone] Medications Medication SIG (Take, Route, Frequency, Duration) [...] Once a day; Duration: 30 day(s) Unknown [place] Carbonate ER 450 MG 1 tablet at bedtime Orally Once a day; Duration: 30 day(s) Unknown Levothyroxine Sodium 137 MCG/ML 1 mL in the morning before breakfast Orally Once a day; Duration: 30 day(s) Unknown Flexeril 10 mg Unknown Encounters Encounter Location Date Provider Diagnosis [facility] [address] [address] 02/08/2025 Berenice Magnus Plan Of Treatment No Information Progress Notes * Lora LOMAS ADOB: (65 yo F)Acc No.[id number]:02/08/2025 Progress Notes Patient: Lora SY Provider: Lucila Agudelo DPM :1960 A ge:64 Y S ex:Female Date:02/08/2025 Address:[address] [place], [place] [id number] Pcp:Cal Cole Subjective: * Chief Complaints: * * Medical History: * Medications: T aking oxyCODONE HCl 5 MG Tablet 1 tablet as needed Orally every 6 hrs , Notes to Pharmacist: Partial Fill upon Patient Request, Unknown Flexeril , Notes to Pharmacist: 10 mg, Unknown Tamsulosin HCl 0.4 MG Capsule 1 capsule Orally Once a day , Unknown [place] Carbonate ER 450 MG Tablet Extended Release [...] DPM Date: 0 02/08/2025 Generated for Tani Laguna/Diallo on: 06/11/2024 12:12 PM EST
--- OUTSIDE RECORDS SUMMARY | 2025-04-06 04:30 | XMS_ITS ---
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 Name Role Phone Cal Cole Primary Care Provider Unavailab Berenice Aparicio Unavailable [phone] Allergies Allergen (clinical drug ingredient) Drug/Non Drug Allergy documented on EMR Reaction Allergy Type Onset Date Status azithromycin Azithromycin stomach pain Drug Allergy Active Biaxin stomach pain Drug Allergy Acti ve erythromycin Erythromycin stomach pain Drug Allergy Active oxcarbazepine Trileptal redness, double vision Drug Allergy Active acetaminophen Acetaminophen Unknown Drug Allergy Active codeine Codeine itching, nausea Drug Allergy Active oxcarbazepine Oxcarbazepine Unknown Drug Allergy Active REASON FOR VISIT Post-op Medications Medication SIG (Take, Route, Frequency, Duration) Notes Start Date End Date Status Walker - as directed Not-Taki ng oxyCODONE HCl 5 MG 1 tablet as needed Orally every 6 hrs; Duration: 5 days Partial Fill upon Patient Request 01/27/2025 Not-Taking Cephalexin 500 MG 1 capsule Orally twice a day; Duration: 10 days 10/16/2022 Not-Taking Cyclobenzaprine HCl 10 MG 1 tablet at bedtime as needed Orally Once a day; Duration: 30 day(s) Not-Taking Aspirin 81 MG 1 tablet Orally Once a day; Duration: 30 day(s) Not-Taking Physical Therapy . . . 2-3x/week; Duration: 3-4 weeks 11/06/2022 Not-Taking oxyCODONE HCl 5 MG 1 tablet as needed Orally every 6 hrs; Duration: 3 days 09/18/2022 Not-Taking Night Splint AFO - L1930 1 wear when at rest; Duration: 30 days Not-Taking oxyCODONE HCl 5 MG 1 tablet as needed Orally every 6 hrs Partial Fill upon Patient Request 12/27/2024 Not-Taking Vitamin D3 50 MCG (1999 UT) 1 capsule Orally Once a day; Duration: 30 day(s) Not-Taking Levothyroxine Sodium 137 MCG/ML 1 mL in the morning before breakfast Orally Once a day; Duration: 30 day(s) Not-Taking Anita Carbonate ER 450 MG 1 tablet at bedtime Orally Once a day; Duration: 30 day(s) Not-Taking Flexeril 10 mg Not-Taking Tamsulosin HCl 0.4 MG 1 capsule Orally Once a day; Duration: 30 day(s) Not-Taking Social History Tobacco Use: Social History [...] Points 0 Interpretation Negative Vital Signs Height 5ft1in in 04/06/2025 Weight 137 lbs 04/06/2025 BMI 25.88 kg/m2 04/06/2025 Blood pressure systolic 127 mm Hg 04/06/20 25 Blood pressure diastolic 70 mm Hg 025 Encounters Encounter Location Date Provider Diagnosis [facility] [address] [place] [address] 04/06/2025 Berenice Agudelo Pain in left toe(s) M79.675 ; Other hammer toe(s) (acquired), left foot M20.42 and Arthritis of joint of lesser toe, 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 Assessments Encounter Date Diagnosis (ICD Code) Assessment Notes Treatment Notes Treatment Clinical Notes Section Notes 04/06/2025 Pain in left toe(s) (ICD-10 - M79.675) 04/06/2025 Other hammer toe(s) (acquired), left foot (ICD-10 - M20.42) 04/06/2025 Arthritis of joint of lesser toe, left (ICD-10 - M19.072) Plan Of Treatment No Information Procedure Notes * Category Sub-Category Detail Notes Dressing Change: Type: dry sterile martell ssing , a light compressive dressing Progress Notes * Lora LOMAS ADOB: (65 yo F)Acc No.[id number]:04/06/2025 Progress Notes Patient: Lora SY Provider: Lucila Agudelo DPM :1960 A ge:65 Y S ex:Female Date:04/06/2025 Address:[address] [place], [place] [id number] Pcp:Cal Cole Subjective: * Chief Complaints: * P ost-op * HPI: P ost-op: The patient presents for post-op of A rthroplastY left second digit. Date of Surgery : 0 12/28/2024 Current symptoms include P t denies fever, chills, nausea, calf pain, SOB, or increased anxiety, Pt states pain under control. Has discrete swelling to medial digit of hammertoe. No redness, no open lesions, no increased warmth. Patient presents. * ROS: G eneral/Constitutional: Nausea d enies. [...] enies. C ardiovascular: Pacemaker d enies. M LOG SORTER d enies. W PW d enies. C [...] spinal cord stimulator Claudio w/ orif right 09/24/2022Hammertoe Correction Left 2nd toe 12/28/2024 * Hospitalization/Major Diagno stic Procedure: D enies [...] dditional Findings: Tobacco non-user C urrent nonsmoker M iscellaneous: C affeine: yes, frequency:,, 2-3 cups per day. Children: yes, 1. Exercise: no, walking dogs. Marital status: . 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 D rug/Alcohol: A SUNDAY-C (Standard) D id you have a drink containing alcohol in the past year? N o P oints 0 I nterpretation N egative * Medications: N ot-Taking/PRNoxyCODONE HCl 5 MG Tablet 1 tablet as needed Orally every 6 hrs , Notes to Pharmacist: Partial Fill upon Patient RequestFlexeril , Notes to Pharmacist: 10 mgTamsulosin HCl 0.4 MG Capsule 1 capsule Orally Once a day Anita Carbonate ER 450 MG Tablet Extended Release 1 tablet at bedtime Orally Once a day Levothyroxine Sodium 137 MCG/ML Solution 1 mL in the morning before breakfast Orally Once a day Vitamin D3 50 MCG (1999 UT) Capsule 1 capsule Orally Once a day Night Splint AFO - L1930 1 wear when at rest oxyCODONE HCl 5 MG Tablet 1 tablet as needed Orally every 6 hrs , Notes to Pharmacist: Partial Fill upon Patient RequestPhysical Therapy . . . . 2- 3x/week oxyCODONE HCl 5 MG Tablet 1 tablet as needed Orally every 6 hrs Walker - Miscellaneous as directed Cephalexin 500 MG Capsule 1 capsule Orally twice a day Cyclobenzaprine HCl 10 MG Tablet 1 tablet at bedtime as needed Orally Once a day Aspirin 81 MG Tablet Chewable 1 tablet Orally Once a day Medication List reviewed and reconciled with the patientNot-Taking/PRN oxyCODONE HCl 5 MG Tablet 1 tablet as needed Orally every 6 hrs , Notes to Pharmacist: Partial Fill upon Patient RequestNot-Taking/PRN Flexeril , Notes to Pharmacist: 10 mgNot-Taking/PRN Tamsulosin HCl 0.4 MG Capsule 1 capsule Orally Once a day Not-Taking/PRN Anita Carbonate ER 450 MG Tablet Extended Release 1 tablet at bedtime Orally Once a day Not- Taking/PRN Levothyroxine Sodium 137 MCG/ML Solution 1 mL in the morning before breakfast Orally Once a day Not-Taking/PRN Vitamin D3 50 MCG (1999 UT) Capsule 1 capsule Orally Once a day Not-Taking/PRN Night Splint AFO - L1930 1 wear when at rest Not-Taking/PRN oxyCODONE HCl 5 MG Tablet 1 tablet as needed Orally every 6 hrs , Notes to Pharmacist: Partial Fill upon Patient RequestNot-Taking/PRN Physical Therapy . . . . 2-3x/week Not-Taking/PRN oxyCODONE HCl 5 MG Tablet 1 tablet as needed Orally every 6 hrs Not-Taking/PRN Walker - Miscellaneous as directed Not-Taking/PRN Cephalexin 500 MG Capsule 1 capsule Orally twice a day Not-Taking/PRN Cyclobenzaprine HCl 10 MG Tablet 1 tablet at bedtime as needed Orally Once a day Not-Taking/PRN Aspirin 81 MG Tablet Chewable 1 tablet Orally Once a day Medication List reviewed and reconciled with the patient * Allergies: O xcarbazepineAcetaminophenCodeine: itching, nauseaErythromycin: stomach painBiaxin: stomach painTrileptal: redness, double visionAzithromycin: stomach pain - Allergyyes[Allergies Verified] Objective: * Vitals: H t: 5ft1in, Wt:137, BMI:25.88, Shoe size: 8.5W, BP:127/70mm Hg, Ht-cm: 154.94 cm, Wt-k.14 kg. * Examination: D ressing: APPEARANCE C lean, dry, and intact, with dry to moist blood present, no malodor. D ermatologic: SURGICAL/WOUND/DRESSING: C icatrix well healed CFT intact , No signs or symptoms consistent with infection , pain on palpation mass appreciated ot proximal medial second toe, using an 18 gauge the mass was noted to be a hematoma, appropriate decompression was performed and a compression dressing was applied. O rthopedic: BUNION: a lignment of toe is rectus in all plains, ROM is guarded due to discomfort. DIGITAL DEFORMITIES: a lignment of toe is rectus in all plains. Assessment: * Assessment: 1. P ain in left toe(s) - M79.675 (Primary) 2 . O ther hammer toe(s) (acquired), left foot - M20.42 S pecify :Decision for surgery (4) 3 . A rthritis of joint of lesser toe, left - M19.072 Plan: * Treatment: * Procedures: D ressing Change:: Type: d ry sterile dressing , a light compressive dressing.? * Procedure Codes: * Preventive Medicine: Counseling: P ost-op: I reviewed with the patient the usual surgical post-op course. The patient is to call with any questions/complications, and will follow-up as scheduled.. * Images: * Sign off status: Completed true * Provider: Lucila Agudelo DPM Date: 06/06/2024 Generated for Tani corrales/Gordo/Diallo on: 06/11/2024 12:12 PM EST History and Physical Notes * HPI (History of Present Illness) Category Sub-Category Detail Notes Category Not es Post-op The patient presents for post-op of ArthroplastY left second digit Patient presents Current symptoms include Pt denies fever , chills, nausea, calf pain, SOB, or increased anxiety, Pt states pain under control. Has discrete swelling to medial digit of hammertoe. No redness, no open lesions, no increased warmth Date of Surgery :: 12/28/2024 Examination Category Sub-Category Detail Notes Category Not es Dermatologic SURGICAL/WOUND/DRESSING: Cicatri x well healed CFT intact , No signs or symptoms consistent with infection , pain on palpation mass appreciated ot proximal medial second toe, using an 18 gauge the mass was noted to be a hematoma, appropriate decompression was performed and a compression dressing was applied Orthopedic BUNION: alignment of toe is rectus in all plains, ROM is guarded due to discomfort DIGITAL DEFORMITIES: alignment of toe is rectus in all plains Dressing APPEARANCE Clean, dry, and intact, with dry to moist blood present, no malodor
--- NOTE | 2025-04-11 10:14 | MHC.PC.OV ---
Vital Signs 04/11/25 10:15 Height 5 ft 2 in Weight 140 lb 4 oz BMI 25.6 BP 118/60 Blood Pressure Location Lt brachial Position Sitting Pulse 77 Pulse Source Pulse Oximeter Temp 96.9 F Temp Source Temporal Artery Scan Pulse Oximetry (%) 99 Oxygen Delivery Method Room Air Intake Visit Reasons: 4mth f/u Intake Note: Patient is here to follow up on GERD, Hyperparathyroidism, Chronic pain . Records Management Associate Required: No Refrigerator Crater: Not Required per policy Accompanied by: Self / Same As Patient Allergies oxcarbazepine (From Trileptal) Allergy (Severe, Verified 04/11/25 10:22) Hives,itching,rash, double vision codeine Allergy (Mild, Verified 04/11/25 10:22) Itching oral steroid Allergy (Mild, Uncoded 04/11/25 10:22) suicidal Medication List - Last Reconciled 04/11/25 by Cal Cole PA-C acetaminophen (Tylenol Extra Strength) 500 mg PO Q6H PRN cholecalciferol (vitamin D3) 50 mcg PO DAILY cyclobenzaprine 10 mg PO TID PRN 10 days levothyroxine 137 mcg PO DAILY 90 days lithium carbonate ER 450 mg PO TID 90 days Tobacco use date assessed: 04/11/25 Fall risk assessment: No Falls in past year Last assessed Fall Risk: 04/11/25 Dental Screening Dental Screen Date: 10/20/24 HPI 4mth f/u HPI Details Patient is a 65 female here today for follow-up visit.. ??Patient has a past medical history significant hypothyroidism, Chronic pain syndrome SI joint dysfunction, bipolar 1 disorder. Concern--> The patient reports difficulty sleeping, waking up four to five times per night. The patient notes good sleep onset but awakens fully after about two hours. The patient previously tried trazodone but discontinued it due to feeling .. Hypothroidism: Was followed by public address system mechanic, Continues on levothyroxine 137 mcg. Recheck TSH to assure normal ? .. Hammertoe: The patient recently underwent foot surgery and has since developed a hematoma in the toe. This issue requires repeated aspirations, and the source of the bleeding is unknown. The patient has an MRI scheduled for the second of the month to investigate further, and it is possible another surgery may be required. The condition causes pain and makes walking a chore. .. Hyperparathyroidism: She has lost her follow-up with Endocrinology, most recent calcium has been stable., Vitamin-D has been low and she has been replaced with vitamin-D supplement. PLAN: Will start once weekly vitamin-D 35939 units for the next 10 weeks. .. Bipolar disorder: Was followed by a psychologist though has not seen him in quite some time. She continues on lithium she feels she is stable on her current dose for many years [facility] Medical History (Updated 04/11/25 @ 10:35 by Cal Cole PA-C) Annual physical exam Screening for diabetes mellitus (DM) Breast pain, left Pre-op chest exam Screening for hypercholesterolemia Screening for hyperlipidemia Screening for diabetes mellitus (DM) Osteoarthritis Bipolar disorder Low back pain Asthma Hx of hepatitis C Hyperparathyroidism Vitamin D deficiency Multinodular thyroid Sacroiliac joint dysfunction Chronic pain syndrome AXEL positive Surgical History History of hammer toe correction History of bunionectomy History of carpal tunnel release History of back surgery Hx of prior ablation treatment History of excision of pilonidal cyst History of foot surgery History of appendectomy History of laparoscopy History of cholecystectomy History of tonsillectomy History of section Family History Father Asthma CVD (cardiovascular disease) Stroke Diabetes Mother Healthy adult Sister Lupus Social History Household Members: Family Housing: House Are you a primary patient care coordinator to a significant other at home: No Do you presently have visiting nurse or other home services: No Alcohol intake: never Patient Tobacco Use Status: Former Tobacco user Tobacco use type: Cigarette Years Smoked: 3 quit age 18 e-Cigarette/Vaping Use: Never Used Second Hand Smoke Exposure: Yes service: No Current occupational status: retired and disabled 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 Elier Carrion, Ignacia Weaver, Fermin Lorenzana and colleagues, with an educational woo from [employer]. Physical exam (Primary Care) Vital Signs: Last Vital Signs Temp 96.9 F 04/11/25 10:15 Pulse 77 04/11/25 10:15 BP 118/60 04/11/25 10:15 Pulse Ox 99 04/11/25 10:15 Oxygen Delivery Method Room Air 04/11/25 10:15 BMI result Body Mass Index 25.6 Tobacco/Smoking Status: Tobacco use Status Tobacco use date assessed 04/11/25 04/11/25 10:20 Patient Tobacco Use Status Former Tobacco user 04/11/25 10:20 Tobacco use type Cigarette 04/11/25 10:20 e-Cigarette/Vaping Use Never Used 04/11/25 10:20 Thrive Assessment: Date of Thrive Assessment Date Thrive assessed 10/20/24 04/11/25 10:20 Coding Level of Care Code Est Pt Level 4 (14695) Diagnoses Bipolar disorder, in full remission, most recent episode depressed F31.76 Active/Remission status: in full remission Most recent bipolar episode type: depressed Vitamin D deficiency E55.9 Mild asthma, unspecified whether complicated, unspecified whether persistent J45.909 Asthma severity: mild Asthma persistence: unspecified Asthma complication type: unspecified Insomnia, unspecified type G47.00 Insomnia type: unspecified Hypothyroidism, unspecified type E03.9 Hypothyroidism type: unspecified Pre-op evaluation Z01.818 Assessment & Plan Assessment & Plan (1) Bipolar disorder: Code(s): F31.9 - Bipolar disorder, unspecified Category: Medical Qualifiers: Active/Remission status: in full remission Most recent bipolar episode type: depressed Qualified Code(s): F31.76 - Bipolar disorder, in full remission, most recent episode depressed Plan: Patient followed by Psychiatry, continues on lithium with good mood stabilization. Will continue to follow lithium level to ensure in stable range. (2) Vitamin D deficiency: Code(s): E55.9 - Vitamin D deficiency, unspecified Category: Medical Plan: Patient continues to have low vitamin-D level. Will start 10 week therapy with 84298 unit vitamin-D to help bump her up. Then return back to 50 mcg daily dosing. (3) Asthma: Comment: during winter months-PRN inhaler Code(s): J45.909 - Unspecified asthma, uncomplicated Category: Medical Qualifiers: Asthma severity: mild Asthma persistence: unspecified Asthma complication type: unspecified Qualified Code(s): J45.909 - Unspecified asthma, uncomplicated Plan: Patient reports her asthma does get worse in the winter and would like a Ventolin inhaler to use on an as needed basis. Otherwise asthma has been very well controlled (4) Insomnia: Code(s): G47.00 - Insomnia, unspecified Category: Medical Qualifiers: Insomnia type: unspecified Qualified Code(s): G47.00 - Insomnia, unspecified Plan: To address insomnia, a trial of hydroxyzine 10 mg is prescribed, with instructions to take one or two tablets at bedtime. This was chosen after discussing the patient's negative experience with trazodone and desire to avoid medications that cause weight gain. (5) Hypothyroidism: Code(s): E03.9 - Hypothyroidism, unspecified Category: Medical Qualifiers: Hypothyroidism type: unspecified Qualified Code(s): E03.9 - Hypothyroidism, unspecified Plan: Patient's most recent TSH has been stable. Will continue current dose of levothyroxine 137 mcg. (6) Pre-op evaluation: Code(s): Z01.818 - Encounter for other preprocedural examination Category: Medical Plan: Patient potentially due for new right foot surgery due to hematoma secondary to previous surgery. Her most recent EKG done in November was normal, will send for new labs to ensure stable. Patient is medically clear for potentially needed foot surgery. Orders: Orders Complete Blood Count no Diff Today J45.909 - Unspecified asthma, uncomplicated Vitamin D 25-OH Total Today E55.9 - Vitamin D deficiency, unspecified TSH reflex Free T4 Today E04.2 - Nontoxic multinodular goiter Comprehensive Met. Panel Today E21.3 - Hyperparathyroidism, unspecified Medications: New albuterol sulfate 90 mcg/actuation (Ventolin HFA) 2 puffs inhalation QID 8.5 grams 0RF 4 weeks J45.909 - Unspecified asthma, uncomplicated hydroxyzine HCl Take 1-2 tablets prior to bedtime 20 mg (2 x 10 mg) PO BEDTIME PRN 20 tabs 0RF sleep 10 days G47.00 - Insomnia, unspecified cholecalciferol (vitamin D3) 1,250 mcg PO QWEEK 10 caps 0RF 10 weeks E55.9 - Vitamin D deficiency, unspecified Refilled lithium carbonate ER 450 mg PO TID 270 tabs 1RF 90 days F31.76 - Bipolar disorder, in full remission, most recent episode depressed On Hold cholecalciferol (vitamin D3) Hold Comment: Doctor's Order 50 mcg PO DAILY 90 caps 3RF E21.3 - Hyperparathyroidism, unspecified, R01.1 - Cardiac murmur, unspecified
[2025-04-11 10:15] VITALS: BP 118/60; PULSE 77; TEMP 36.1; O2SAT 99; BMI 25.6
--- OUTSIDE RECORDS SUMMARY | 2025-04-11 12:12 | XMS_ITS | Patient Health Record ---
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 Name Role Phone Cal Cole Primary Care Provider Elier Davis [phone] Allergies Allergen (clinical drug ingredient) Drug/Non Drug Allergy documented on EMR Reaction Allergy Type Onset Date Status All steroids and non steroidal medications (uncoded) Unknown Allergy Active Non-steroidal anti-inflammatory agent (FN) NSAIDS (uncoded) Unknown Allergy Active amitriptyline Amitriptyline HCl Unknown Drug Allergy Active codeine Codeine Sulfate Unknown Drug Allergy A ctive erythromycin Erythromycin Unknown Drug Allergy A ctive oxcarbazepine Trileptal Unknown Drug Allergy Act hernan Reason For Referral No Information Medications Medication SIG (Take, Route, Frequency, Duration) Notes Start Date End Date Status Diphenoxylate-Atropine 2.5-0.025 MG Tablet TAKE 1 OR 2 TABLETS BY MOUTH EVERY 6 HOURS IF NEEDED FOR DIARRHEA, OR SHE CAN ALSO TAKE THE MEDICINE BEFORE AN ACTIVITY TO PREVENT DIARRHEA Orally up to four times a day per the instructions; Duration: 30 days 08/11/2024 Active Jenner Carbonate 450mg Active Levothyroxine Sodium 0.125mg Active Flexeril prn Active Sulfamethoxazole-Trimethopri m 800-160 MG Tablet TK 1 T PO BID FOR 10 DAYS Oral; Duration: 10 Active Immunizations Vaccine Route Administration Date Status Comme nts Influenza Unknown 02/15/2018 Administered Influenza Unknown 01/17/2020 Administered Influenza Unknown 04/07/2023 Administered Social History Social History Additional Details Category Social Info Options Details Miscellaneous: Marital status: Occupation: unemployed Section Notes: Nonsmoker; no alcohol Nonsmoker; no alcohol Nonsmoker; no alcohol Nonsmoker; no alcohol Nonsmoker; no alcohol Nonsmoker; no alcohol Nonsmoker; no alcohol Nonsmoker; no alcohol Problems Problem Type SNOMED Code ICD Code Onset Dates Problem Status W/U Status Risk Notes Problem Screening for malignant neoplasm of colon (392993504) Encounter for screening for malignant neoplasm of colon (Z12.11) Active confirmed Problem History of adenomatous polyp of colon (033049754) History of adenomatous polyp of colon (Z86.010) Active confirmed Problem Diarrhea (25931236) Diarrhea (R19.7) Active con firmed Problem Diverticular disease of colon (118062886) Diverticulosis of large intestine without perforation or abscess without bleeding (K57.30) Active confirmed Problem Chronic hepatitis C (854715248) Chronic hepatitis C without hepatic coma (B18.2) Active confirmed Problem History of gastrointestinal disease (752658960) History of chronic hepatitis (Z87.19) Active confirmed Problem Hepatic fibrosis (disorder) (43748172) Liver fibrosis (K74.00) Active confirmed Encounters Encounter Location Date Provider Diagnosis [facility] [address] [place] [phone] 08/04/2024 Elier Thompson [facility] [address] [place] [phone] 08/10/2024 Elier Thompson Plan Of Treatment Pending Test Test Name Order Date LIVER PROFILE 03/25/2018 LIVER PROFILE 11/27/2023 LIVER PROFILE 10/01/2017 LIVER PROFILE 11/17/2017 LIVER PROFILE 03/13/2020 LIVER PROFILE 08/25/2023 CRP 08/25/2023 CBC w DIFF 03/13/2020 CBC w DIFF 08/25/2023 CBC w DIFF 10/01/2017 CBC w DIFF 11/17/2017 CBC w DIFF 11/27/2023 SED RATE (ESR) 08/25/2023 ALPHA-FETOPROTEIN,TUMOR MARKER 0 ALPHA-FETOPROTEIN,TUMOR MARKER 9 ALPHA-FETOPROTEIN,TUMOR MARKER 4 HEPATITIS C VIRAL LOAD 10/01/2017 HEPATITIS C VIRAL LOAD 11/17/2017 HEPATITIS C VIRAL LOAD 03/13/2020 HEPATITIS C VIRAL LOAD 03/25/2018 HEPATITIS C VIRAL LOAD 11/27/2023 US ABD 03/13/2020 HCV LIVER FIBROSIS, FIBRO TEST 4 HCVVL REFLEX GENOTYPE REFLEX NS5A 2017 STOOL WBC 08/25/2023 C DIFFICILE RFLX PCR 08/25/2023 Prothrombin Time INR 11/27/2023 Calprotectin, Fecal 08/25/2023 US abdomen comp w elastography 4 GI PANEL 08/25/2023 Future Test Test Name Order Date FLEXIBLE SIGMOIDOSCOPY, DIAGNOSTIC 11/05 UPPER GI ENDOSCOPY 11/06/2011 COLONOSCOPY 03/25/2018 COLONOSCOPY 11/27/2023 Next Appt Details Provider Name:Elier Thompson , 04/19/2025 02:20:00 PM, [address], [address], [place], [address], Insurance Providers Payer Name Payer Address Payer Phone Subscriber Number Group Number Insured Name Patient Relationship to Insured Coverage Start Date Coverage End Date [facility] [address] [place] [phone] [id number] GUIDO LOMAS Self - patient is the insured Medical (General) History Medical History History ICD Code Fibromyalgia Bipolar disease Hypothyroidism Denies [place],DM,CVA,Lung disease,renal dise ase IBS with diarrhea--neg. colo noscopy in 2008 and neg. flex sig in 2011--no IBD, no microscopic colitis, no polyps EGD in 2011--neg. celiac dis ease, positive for GERD, but no Tarango's--mod-sized HH, no H.pylori Chronic hep C--received bloo d transfusions during in the --treated with 12 weeks of Harvoni 09/2017-12/2017--neg Hep C viral load in 02/2018; Fibrosis score 0.4 F1-F2, Genotype 1b; neg Hep C viral load in 02/2019 and in 05/2020. Colonoscopy in 05/2018 with a small tubul ar adenoma removed Sciatica [place] [facility] [place] History Surgery Date(Month/Year) Cholecystectomy Tonsillectomy Left foot surgery 09/2016 Pilonidal cyst removed-Dr. Browne 10/04 18 Bunions removed Nerve stimulator for sciatica pain
--- OUTSIDE RECORDS SUMMARY | 2025-04-11 12:13 | XMS_ITS | Patient Health Record ---
Author Organization [facility] Address [address] [place] [address] Care Team Providers Care Plane Tender Name Role Phone Manuel Coleolas Primary Care Provider Unavailab Berenice Aparicio Unavailable [phone] Black, Brooke Unavailable [phone] Allergies Allergen (clinical drug ingredient) Drug/Non Drug [...] a day; Duration: 10 days 10/16/2022 Not-Taking Physical Therapy . . . 2-3x/week; Duration: 3-4 weeks 11/06/2022 Not-Taking oxyCODONE HCl 5 MG 1 tablet as needed Orally every 6 hrs; Duration: 3 days 09/18/2022 Not-Taking Night Splint AFO - L1930 1 wear when at rest; Duration: 30 days Not-Taking oxyCODONE HCl 5 MG 1 tablet as needed Orally every 6 hrs Partial Fill upon Patient Request 12/27/2024 Not-Taking Levothyroxine Sodium 137 MCG/ML 1 mL in the morning before breakfast Orally Once a day; Duration: 30 day(s) Not-Taking Vitamin D3 50 MCG (2000 UT) 1 capsule Orally Once a day; Duration: 30 day(s) Not-Taking [place] Carbonate ER 450 MG 1 tablet at bedtime Orally Once a day; Duration: 30 day(s) Not-Taking Flexeril 10 mg Not-Taking Cyclobenzaprine HCl 10 MG 1 tablet at bedtime as needed Orally Once a day; Duration: 30 day(s) Not-Taking Tamsulosin HCl 0.4 MG 1 capsule Orally Once a day; Duration: 30 day(s) Not-Taking Aspirin 81 MG 1 tablet Orally Once a day; Duration: 30 day(s) Not-Taking Immunizations Vaccine Route Administration Date Status Comme nts Influenza Unknown 02/16/2024 Administered Influenza Unknown 02/15/2025 Administered Social History Tobacco Use: Social History Observation [...] foot (M20.11) Active confirmed Decision for Hospitalizati on/[facility]/Major surgery (5),Rx drug management Problem Information temporarily [...] toe, left (M19.072) Active confirmed Vital Signs Blood pressure diastolic 70 mm Hg 04/06/2025 Height 5ft1in in 04/06/2025 Blood pressure systolic 127 mm Hg 04/06/2025 Weight 137 lbs 04/06/2025 BMI 25.88 kg/m2 04/06/2025 Encounters Encounter Location Date Provider Diagnosis [facility] ([facility] [address] [place] [phone] 12/28/2024 Berenice Hendersonaker [address] [address] 11/10/2024 Berenice Agudelo Pain in left toe(s) M79.675 ; Other hammer toe(s) (acquired), left foot M20.42 ; Arthritis of joint of lesser toe, 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 and Subluxation of metatarsophalangeal joint of toe, initial encounter S93.149A [address] [address] 12/12/2024 Berenice Agudelo Pain in left toe(s) M79.675 ; Other hammer toe(s) (acquired), left foot M20.42 ; Arthritis of joint of lesser toe, 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 and Subluxation of metatarsophalangeal joint of toe, initial encounter S93.149A [address] [address] 01/02/2025 Berenice Agudelo Pain in left toe(s) M79.675 ; Other hammer toe(s) (acquired), left foot M20.42 and Arthritis of joint of lesser toe, 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 [address] 01/11/2025 Berenice Agudelo Pain in left toe(s) M79.675 ; Other hammer toe(s) (acquired), left foot M20.42 and Arthritis of joint of lesser toe, 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 [address] 01/26/2025 Berenice Agudelo Pain in left toe(s) M79.675 ; Other hammer toe(s) (acquired), left foot M20.42 and Arthritis of joint of lesser toe, 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 [facility] [address] 03/01/2025 Berenice Agudelo Pain in left toe(s) M79.675 ; Other hammer toe(s) (acquired), left foot M20.42 and Arthritis of joint of lesser toe, 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 [facility] [address] 03/08/2025 Berenice Agudelo Pain in left toe(s) M79.675 ; Other hammer toe(s) (acquired), left foot M20.42 and Arthritis of joint of lesser toe, 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 [facility] [address] 04/06/2025 Berenice Agudelo Pain in left toe(s) M79.675 ; Other hammer toe(s) (acquired), left foot M20.42 and Arthritis of joint of lesser toe, 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 [facility] [address] 03/08/2025 Berenice Agudelo [facility] [address] [address] 11/10/2024 Brooke Black [facility] [place] [address] [address] 11/11/2024 Brooke Black [facility] [address] [address] 12/26/2024 Berenice Agudelo [facility] [address] [address] 01/10/2025 Berenice Agudelo [facility] [place] [address] [address] 01/27/2025 Berenice Agudelo [facility] [address] [address] 02/08/2025 Berenice Agudelo [facility] [place] [address] [place] [address] 04/05/2025 Berenice Agudelo Assessments Encounter Date Diagnosis (ICD Code) Assessment Notes Treatment Notes Treatment Clinical Notes Section Notes 11/10/2024 Pain in left toe(s) (ICD-10 - M79.675) 11/10/2024 Other hammer toe(s) (acquired), left foot (ICD-10 - M20.42) 12/12/2024 Pain in left toe(s) (ICD-10 - M79.675) 12/12/2024 Other hammer toe(s) (acquired), left foot (ICD-10 - M20.42) 01/02/2025 Pain in left toe(s) (ICD-10 - M79.675) 01/11/2025 Pain in left toe(s) (ICD-10 - M79.675) 01/26/2025 Pain in left toe(s) (ICD-10 - M79.675) 01/26/2025 Other hammer toe(s) (acquired), left foot (ICD-10 - M20.42) 03/01/2025 Pain in left toe(s) (ICD-10 - M79.675) 03/08/2025 Pain in left toe(s) (ICD-10 - M79.675) 04/06/2025 Pain in left toe(s) (ICD-10 - M79.675) 04/06/2025 Other hammer toe(s) (acquired), left foot (ICD-10 - M20.42) 03/08/2025 Other hammer toe(s) (acquired), left foot (ICD-10 - M20.42) 03/01/2025 Other hammer toe(s) (acquired), left foot (ICD-10 - M20.42) 01/26/2025 Arthritis of joint o f lesser toe, left (ICD-10 - M19.072) 12/12/2024 Arthritis of joint o f lesser toe, left (ICD-10 - M19.072) 01/11/2025 Other hammer toe(s) (acquired), left foot (ICD-10 - M20.42) 01/02/2025 Other hammer toe(s) (acquired), left foot (ICD-10 - M20.42) 11/10/2024 Arthritis of joint o f lesser toe, left (ICD-10 - M19.072) 11/10/2024 Subluxation of metatarsophalangeal joint of toe, initial encounter (ICD-10 - S93.149A) 12/12/2024 Subluxation of metatarsophalangeal joint of toe, initial encounter (ICD-10 - S93.149A) 01/02/2025 Arthritis of joint o f lesser toe, left (ICD-10 - M19.072) 01/11/2025 Arthritis of joint o f lesser toe, left (ICD-10 - M19.072) 03/01/2025 Arthritis of joint o f lesser toe, left (ICD-10 - M19.072) 03/08/2025 Arthritis of joint o f lesser toe, left (ICD-10 - M19.072) 04/06/2025 Arthritis of joint o f lesser toe, left (ICD-10 - M19.072) Plan Of Treatment Pending Test Test Name Order Date X ray : Foot, left 3V 11/10/2024 X ray : Foot, right 3V 11/19/2022 Insurance Providers Payer Name Payer Address Payer Phone Subscriber Number Group Number Insured Name Patient Relationship to Insured Coverage Start Date Coverage End Date [employer] Advantage [address] [place] [address] [id number] Lora Estevez Self - patient is the [...] cord stimulator Claudio w/ orif right 09/24/2022 Hammertoe Correction Left 2nd toe 2024
== END 2025-04-11 10:37 | disposition home or self-care (01) ==
LOC: HO.HMCH 10:06
PROVIDERS: PCP Physician Assistant; Visit Provider Physician Assistant
DX: F31.76 Bipolar disorder, in full remission, most recent episode depressed (principal); E55.9 Vitamin D deficiency, unspecified; J45.909 Unspecified asthma, uncomplicated; G47.00 Insomnia, unspecified; E03.9 Hypothyroidism, unspecified; Z01.818 Encounter for other preprocedural examination

== ENCOUNTER 2025-04-18 | Outpatient (REF) | payer MEDICARE, SELFPAY ==
--- OUTSIDE RECORDS SUMMARY | 2024-02-22 06:40 | XMS_ITS ---
Author Organization [facility] Address [address] [place] [address] Care Team Providers Care Tractor Distributor Name Role Phone Cal Cole Primary Care Provider Unavailab Elier Rosas Unavailable [phone] REASON FOR VISIT screening,hx polyps Problems Problem Type SNOMED Code ICD Code Onset Dates Problem Status W/U Status Risk Notes Problem Diverticular disease of colon (843660748) Diverticulosis of large intestine without perforation or abscess without bleeding (K57.30) Active confirmed Encounters Encounter Location Date Provider [place] [facility] [place] [address] [place] [phone] 02/22/2024 Elier Thompson Colon cancer scree bob [...] Notes * TIFFANY LOMASOB:[birth year] (65 yo F)Acc No.[id number]:02/22/2024 COLON WITH MAC Patient: Suzie GUIDO GAUTAM Provider: Wade Thompson MD :1960 A ge:64 Y S ex:Female Date:02/22/2024 Address:[address] [place], [place] [phone] Pcp:Cal Cole Subjective: * Chief Complaints: * [...] Modifiers: 1P Billing Information: * Procedure Codes: 43656 LESION REMOVAL COLONOSCOPY. Modifiers: PT 0529F INTRVL [...] MD Date: Generated for Tani corrales/Gordo/Nevinitting on: 0 06/08/2025 11:17 AM EST
--- OUTSIDE RECORDS SUMMARY | 2025-02-08 10:00 | XMS_ITS ---
Author Organization [facility] Address [address] [place] [address] Care Team Providers Care Financial Sales Representative Name Role Phone Cal Cole Primary Care Provider Unavailab Berenice Aparicio Unavailable [phone] Medications Medication SIG (Take, Route, Frequency, Duration) Notes Start Date End Date Status Cyclobenzaprine HCl 10 MG 1 tablet at bedtime as needed Orally Once a day; Duration: 30 day(s) Unknown Aspirin 81 MG 1 tablet Orally Once a day; Duration: 30 day(s) Unknown oxyCODONE HCl 5 MG 1 tablet as needed Orally every 6 hrs; Duration: 5 days Partial Fill upon Patient Request 01/27/2025 Active Walker - as directed Unknown Cephalexin 500 MG 1 capsule Orally twice a day; Duration: 10 days 10/16/2022 Unknown Vitamin D3 50 MCG (1999 UT) 1 capsule Orally Once a day; Duration: 30 day(s) Unknown Night Splint AFO - L1930 1 wear when at rest; Duration: 30 days Unknown oxyCODONE HCl 5 MG 1 tablet as needed Orally every 6 hrs Partial Fill upon Patient Request 12/27/2024 Unknown Physical Therapy . . . 2-3x/week; Duration: 3-4 weeks 11/06/2022 Unknown oxyCODONE HCl 5 MG 1 tablet as needed Orally every 6 hrs; Duration: 3 days 09/18/2022 Unknown Tamsulosin HCl 0.4 MG 1 capsule Orally Once a day; Duration: 30 day(s) Unknown [place] Carbonate ER 450 MG 1 tablet at bedtime Orally Once a day; Duration: 30 day(s) Unknown Levothyroxine Sodium 137 MCG/ML 1 mL in the morning before breakfast Orally Once a day; Duration: 30 day(s) Unknown Flexeril 10 mg Unknown Encounters Encounter Location Date Provider Diagnosis [facility] [place] [address] [place] [address] 02/08/2025 Berenice Magnus Plan Of Treatment Next Appt Details Provider Name:Berenice Kay donny, 06/16/2025 01:30:00 PM, [address] [place] [address], [address], [place], [address], Progress Notes * LOMAS, Lora ADOB: (65 yo F)Acc No.[id number]:02/08/2025 Progress Notes Patient: Lora SY Provider: Lucila Agudelo DPM :1960 A ge:64 Y S ex:Female Date:02/08/2025 Address:[address] [place], [place] [id number] Pcp:Cal Cole Subjective: * Chief Complaints: * * Medical History: * Medications: T aking oxyCODONE HCl 5 MG Tablet 1 tablet as needed Orally every 6 hrs , Notes to Pharmacist: Partial Fill upon Patient Request, Unknown Flexeril , Notes to Pharmacist: 10 mg, Unknown Tamsulosin HCl 0.4 MG Capsule 1 capsule Orally Once a day , Unknown [place] Carbonate ER 450 MG Tablet Extended Release 1 tablet at bedtime Orally Once a day , Unknown Levothyroxine Sodium 137 MCG/ML Solution 1 mL in the morning before breakfast Orally Once a day , Unknown Vitamin D3 50 MCG (1999 UT) Capsule 1 capsule Orally Once a day , Unknown Night Splint AFO - L1930 1 wear when at rest , Unknown oxyCODONE HCl 5 MG Tablet 1 tablet as needed Orally every 6 hrs , Notes to Pharmacist: Partial Fill upon Patient Request, Unknown Physical Therapy . . . . 2-3x/week , Unknown oxyCODONE HCl 5 MG Tablet 1 tablet as needed Orally every 6 hrs , Unknown Walker - Miscellaneous as directed , Unknown Cephalexin 500 MG Capsule 1 capsule Orally twice a day , Unknown Cyclobenzaprine HCl 10 MG Tablet 1 tablet at bedtime as needed Orally Once a day , Unknown Aspirin 81 MG Tablet Chewable 1 tablet Orally Once a day Objective: * Vitals: Assessment: Plan: * Treatment: * Images: * The named appointment provid er may or may not be the originator of this progress note, and it is not deemed complete until electronically signed by the appointment provider. Sign off status: Pending * Provider: Lucila Agudelo DPM Date: 0 02/08/2025 Generated for Tani corrales/Gordo/Diallo on: 0 06/08/2025 11:17 AM EST
--- NOTE | ~2025-04-18 | MR_ITS ---
EXAM: TECHNIQUE: Multiplanar multisequence MR imaging was performed through the foot. INDICATION: Recurrent hematoma left second digit, recurring bleeding, hammertoe surgery September 2024 PRIOR: [X-ray August 14, 2015 FINDINGS: Lisfranc ligament: Intact and unremarkable. Soft tissues/Wang's Neuroma: There is no soft tissue abnormality is suggested Wang's neuroma. There is no muscle edema or fatty replacement. Metatarsophalangeal (MTP) joint and sesamoids of the great toe: The joint is fused related to bunionectomy. Lesser MTP joints & Plantar plates: Plantar plates are intact. Joint capsule structures are intact. Bones/Marrow: There appear to be changes related to resection of the head of the proximal phalanx of second digit. The remaining distal end of the proximal phalanx abuts the plantar base of the middle phalanx. There is mild marrow edema like signal in the distal end of the proximal phalanx. There is micrometal artifact extending to the dorsal skin at the PIP joint related to surgery. Metal from internal fixation is visible in the proximal half of the fifth metatarsal. No mass or other abnormality is identified. MR/MR foot LT wo con IMPRESSION: There are postsurgical changes related to resection of the head of the proximal phalanx of the second digit. There are mild marrow signal changes in the distal half of the remaining proximal phalanx this could be related to mechanical stress from the distal and of the remaining proximal phalanx abutting the plantar base of the middle phalanx. Infection/osteomyelitis is not highly suspected, but not entirely ruled out. Changes related to bunionectomy. Electronically signed by: Adrian Rasmussen MD 04/20/2025 02:17 PM ROBERT
--- OUTSIDE RECORDS SUMMARY | 2025-04-19 09:20 | XMS_ITS ---
Author Organization [facility] Address [address] [facility] [address] [place] [address] Care Team Providers Care Records Tech Name Role Phone Cal Cole Primary Care Provider UnavailElier Boland [phone] REASON FOR VISIT Patient presents today for liver fibrosis, chronic hep c Encounters Encounter Location Date Provider Diagnosis [facility] [address] [address] 04/19/2025 Elier Thompson Plan Of Treatment No Information Progress Notes * TIFFANY LOMASOB:[birth year] (65 yo F)Acc No.[id number]:04/19/2025 Progress Notes Patient: GUIDO SY Provider: Wade Thompson MD :1960 A ge:65 Y S ex:Female Date:04/19/2025 Address:[address] [place], [place] [id number] Pcp:Cal Cole Subjective: * Chief Complaints: * P atient presents today for liver fibrosis, chronic hep c Billing Information: * Procedure Codes: * The named appointment provid er may or may not be the originator of this progress note, and it is not deemed complete until electronically signed by the appointment provider. Sign off status: Pending * Provider: Wade Thompson MD Date: 1 06/20/2024 Generated for Printi ng/Faxing/eTransmitting on: 0 06/08/2025 11:16 AM EST
--- OUTSIDE RECORDS SUMMARY | 2025-05-04 07:00 | XMS_ITS ---
Author Organization [facility] Address [address] [place] [address] Care Team Providers Care Transition Advisor Name Role Phone Cal Cole Primary Care Provider Unavailab Berenice Aparicio Unavailable [phone] Encounters Encounter Location Date Provider Diagnosis [address] [address] 05/04/2025 Berenice Agudelo Plan Of Treatment Next Appt Details Provider Name:Berenice hines, 06/16/2025 01:30:00 PM, [address] [facility], [address] [place] [address], [phone], Progress Notes * Lora LOMAS ADOB: (65 yo F)Acc No.[id number]:05/04/2025 Patient: Suzie Lora GAUTAM Provider: Lucila Agudelo DPM :1960 A ge:65 Y S ex:Female Date:05/04/2025 Address:[address] [place] [address] Pcp:Cal Cole * Images: * The named appointment provid er may or may not be the originator of this progress note, and it is not deemed complete until electronically signed by the appointment provider. Sign off status: Pending * Provider: Lucila Agudelo DPM Date: 07/05/2024 Generated for Tani corrales/Gordo/Nevinitting on: 0 06/08/2025 11:17 AM EST
--- OUTSIDE RECORDS SUMMARY | 2025-06-06 10:00 | XMS_ITS ---
Author Organization [facility] Address [address] [place] [address] Care Team Providers Care Magazine Hand Name Role Phone Cal Cole Primary Care Provider Unavailab Berenice Aparicio Unavailable [phone] Allergies Allergen (clinical drug ingredient) Drug/Non Drug [...] Unknown Drug Allergy Active REASON FOR VISIT Pcp-04/15/25, Post-op Medications Medication SIG (Take, Route, Frequency, Duration) Notes Start Date End Date Status Levothyroxine Sodium 137 MCG/ML 1 mL in the morning before breakfast Orally Once a day; Duration: 30 day(s) Not-Taking Terminous Carbonate ER 450 MG 1 tablet at bedtime Orally Once a day; Duration: 30 day(s) Not-Taking Night Splint AFO - L1930 1 wear when at rest; Duration: 30 days Not-Taking Vitamin D3 50 MCG (1999 UT) 1 capsule Orally Once a day; Duration: 30 day(s) Not-Taking Tamsulosin HCl 0.4 MG 1 capsule Orally Once a day; Duration: 30 day(s) Not-Taking oxyCODONE HCl 5 MG 1 tablet as needed Orally every 6 hrs Partial Fill upon Patient Request 05/04/2025 Not-Taking Aspirin 81 MG 1 tablet Orally Once a day; Duration: 30 day(s) Not-Taking Flexeril 10 mg Not-Taking Cyclobenzaprine HCl 10 MG 1 tablet at bedtime as needed Orally Once a day; Duration: 30 day(s) Not-Taking oxyCODONE HCl 5 MG 1 tablet as needed Orally every 6 hrs; Duration: 5 days Partial Fill upon Patient Request 05/05/2025 Not-Taking Cephalexin 500 MG 1 capsule Orally twice a day; Duration: 10 days 10/16/2022 Not-Taking Walker - as directed Not-Taki ng Doxycycline Hyclate 100 MG 1 capsule Orally Once a day; Duration: 10 day(s) Active Physical Therapy . . . 2-3x/week; Duration: 3-4 weeks 11/06/2022 Not-Taking oxyCODONE HCl 5 MG 1 tablet as needed Orally every 6 hrs; Duration: 3 days 09/18/2022 Not-Taking oxyCODONE HCl 5 MG 1 tablet as needed Orally every 6 hrs Partial Fill upon Patient Request Active Gabapentin 300 MG 1 capsule Orally Once a day; Duration: 30 day(s) Active oxyCODONE HCl 5 MG 1 tablet as needed Orally every 6 hrs Partial Fill upon Patient Request 12/27/2024 Not-Taking Social History Tobacco Use: Social History [...] Negative Vital Signs Height 5ft 1in in 06/06/2025 Weight 141 lbs 06/06/2025 BMI 26.64 kg/m2 06/06/2025 Encounters Encounter Location Date Provider Diagnosis [facility] [address] [address] 06/06/2025 Berenice Agudelo Contusion of lesser toe of left foot without damage to nail, initial encounter S90.122A and Pain in left toe(s) M79.675 Assessments Encounter Date Diagnosis (ICD Code) Assessment Notes Treatment Notes Treatment Clinical Notes Section Notes 06/06/2025 Contusion of lesser toe of left foot without damage to nail, initial encounter (ICD-10 - S90.122A) 06/06/2025 Pain in left toe(s) (ICD-10 - M79.675) Plan Of Treatment Medication Medication Name Sig Start Date Stop Date Notes Doxycycline Hyclate 100 MG 1 capsule Orally Once a day; Duration: 10 day(s) oxyCODONE HCl 5 MG 1 tablet as needed Orally every 6 hrs Partial Fill upon Patient Request Gabapentin 300 MG 1 capsule Orally Once a day; Duration: 30 day(s) Next Appt Details Follow Up: 1 Week, Reason: Provider Name:Berenice Kay donny, 06/16/2025 01:30:00 PM, [facility], [address], [place], [address], Procedure Notes * Category Sub-Category Detail Notes Dressing Change: Type: dry sterile martell ssing , a light compressive dressing Progress Notes * Lora LOMAS ADOB: (65 yo F)Acc No.[id number]:06/06/2025 Progress Notes Patient: Spenser SYel A Provider: Lucila Agudelo DPM :1960 A ge:65 Y S ex:Female Date:06/06/2025 Address:[address] [place], [place] [id number] Pcp:Cal Cole Subjective: * Chief Complaints: * P cp-04/15/25Post-op * HPI: P ost-op: The patient presents for post-op of i ncision and drainage left second toe. Date of Surgery : 06/28/2024 Current symptoms include P t denies fever, chills, nausea, calf pain, SOB, or increased anxiety, Pt states pain under control. Patient presents. * ROS: G eneral/Constitutional: Nausea [...] enies. C ardiovascular: Pacemaker d enies. 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 W PW d enies. [...] orif right 09/24/2022Hammertoe Correction Left 2nd toe 12/28/2024Incision and drainage T1 05/04/2025 * Hospitalization/Major Diagno stic Procedure: N o Hospitalization History. * Family History: M other: alive, kidney/liver [...] dogs. Marital status: . 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 D rug/Alcohol: A SUNDAY-C (Standard) D id you have a drink containing alcohol in the past year? N o P oints 0 I nterpretation N egative * Medications: N ot-Taking/PRNoxyCODONE HCl 5 MG Tablet 1 tablet as needed Orally every 6 hrs , Notes to Pharmacist: Partial Fill upon Patient RequestGabapentin 300 MG Capsule 1 capsule Orally Once a day oxyCODONE HCl 5 MG Tablet 1 tablet as needed Orally every 6 hrs , Notes to Pharmacist: Partial Fill upon Patient RequestDoxycycline Hyclate 100 MG Capsule 1 capsule Orally Once a day oxyCODONE HCl 5 MG Tablet 1 tablet as needed Orally every 6 hrs , Notes to Pharmacist: Partial Fill upon Patient RequestFlexeril , Notes to Pharmacist: 10 mgTamsulosin HCl 0.4 MG Capsule 1 capsule Orally Once a day Terminous Carbonate ER 450 MG Tablet Extended Release 1 tablet at bedtime Orally Once a day Levothyroxine Sodium 137 MCG/ML Solution 1 mL in the morning before breakfast Orally Once a day Vitamin D3 50 MCG (1999) Capsule 1 capsule Orally Once a day Night Splint AFO - L1930 1 wear when at rest oxyCODONE HCl 5 MG Tablet 1 tablet as needed Orally every 6 hrs , Notes to Pharmacist: Partial Fill upon Patient RequestPhysical Therapy . . . . 2-3x/week oxyCODONE [...] reviewed and reconciled with the patientNot- Taking/PRN oxyCODONE HCl 5 MG Tablet 1 tablet as needed Orally every 6 hrs , Notes to Pharmacist: Partial Fill upon Patient RequestNot-Taking/PRN Gabapentin 300 MG Capsule 1 capsule Orally Once a day Not-Taking/PRN oxyCODONE HCl 5 MG Tablet 1 tablet as needed Orally every 6 hrs , Notes to Pharmacist: Partial Fill upon Patient RequestNot-Taking/PRN Doxycycline Hyclate 100 MG Capsule 1 capsule Orally Once a day Not-Taking/PRN oxyCODONE HCl 5 MG Tablet 1 tablet as needed Orally every 6 hrs , Notes to Pharmacist: Partial Fill upon Patient RequestNot-Taking/PRN Flexeril , Notes to Pharmacist: 10 mgNot-Taking/PRN Tamsulosin HCl 0.4 MG Capsule 1 capsule Orally Once a day Not-Taking/PRN Terminous Carbonate ER 450 MG Tablet Extended Release 1 tablet at bedtime Orally Once a day Not-Taking/PRN Levothyroxine Sodium 137 MCG/ML Solution 1 mL [...] Allergyyes[Allergies Verified] Objective: * Vitals: H t: 5ft 1in, Wt:141, BMI:26.64, Shoe size: 8.5W, Ht-cm: 154.94 cm, Wt-k.96 kg. * Examination: D ressing: APPEARANCE C lean, dry, and intact, with dry to moist blood present, no malodor. D ermatologic: SURGICAL/WOUND/DRESSING: S kin and Sutures intact, Incision edges are well aligned and adhered, CFT intact , No signs or symptoms consistent with infection , (+), Pain on palpation/ecchymosis/edema, (-), erythema/hematoma/dehiscence/cellulitis. ? O rthopedic: BUNION: a lignment of toe is rectus in all plains, ROM is guarded due to discomfort. DIGITAL DEFORMITIES: a lignment of toe is rectus in all plains. Assessment: * Assessment: 1. C ontusion of lesser toe of left foot without damage to nail, initial encounter - S90.122A? Specify :Acute problem, Complicated w/ Multiple Tx Options(4),Dx New problem, Prognosis Uncertain (4) 2 . P ain in left toe(s) - M79.675 (Primary) Plan: * Treatment: * Procedures: D ressing Change:: Type: d ry sterile dressing , a light compressive dressing.? * Procedure Codes: * Preventive Medicine: Counseling: P ost-op: I reviewed with the patient the usual surgical post-op course. The patient is to call with any questions/complications, and will follow-up as scheduled. * Follow Up: 1 Week * Images: * Sign off status: Completed true * Provider: Lucila Agudelo DPM Date: 0 06/06/2025 Generated for Tani corrales/Gordo/Diallo on: 06/08/2025 11:16 AM EST History and Physical Notes * HPI (History of Present Illness) Category Sub-Category Detail Notes Category Not es Post-op The patient presents for post-op of incision and drainage left second toe Patient present s Current symptoms include Pt denies fever , chills, nausea, calf pain, SOB, or increased anxiety, Pt states pain under control Date of Surgery :: 04/27/2025 Examination Category Sub-Category Detail Notes Category Not es Dermatologic SURGICAL/WOUND/DRESSING: Skin an d Sutures intact, Incision edges are well aligned and adhered, CFT intact , No signs or symptoms consistent with infection , (+), Pain on palpation/ecchymosis/edema, (-), erythema/hematoma/dehiscence/kennedy lulitis Orthopedic BUNION: alignment of toe is rectus in all plains, ROM is guarded due to discomfort DIGITAL DEFORMITIES: alignment of toe is rectus in all plains Dressing APPEARANCE Clean, dry, and intact, with dry to moist blood present, no malodor
--- OUTSIDE RECORDS SUMMARY | 2025-06-08 11:17 | XMS_ITS | Patient Health Record ---
Author Organization [facility] Address [address] [place] [address] Care Team Providers Care Outreach Director Name Role Phone Cal Cole Primary Care Provider Elier Davis [phone] Allergies Allergen (clinical drug ingredient) Drug/Non Drug [...] the instructions; Duration: 30 days 08/11/2024 Active Brandt Carbonate 450mg Active Levothyroxine Sodium 0.125mg Active [...] Problem Screening for malignant neoplasm of colon (779411076) Encounter for screening for malignant neoplasm of colon (Z12.11) Active confirmed Problem History of adenomatous polyp of colon (373154940) History of adenomatous polyp of colon (Z86.010) Active confirmed Problem Diarrhea (71039325) Diarrhea (R19.7) Active con firmed Problem Diverticular disease of colon (368381522) Diverticulosis of large intestine without perforation or abscess without bleeding (K57.30) Active confirmed Problem Chronic hepatitis C (165042829) Chronic hepatitis C without hepatic coma (B18.2) Active confirmed Problem History of gastrointestinal disease (361600774) History of chronic hepatitis (Z87.19) Active confirmed Problem Hepatic fibrosis (disorder) (39755233) Liver fibrosis (K74.00) Active confirmed Encounters Encounter Location Date Provider Diagnosis [facility] [address] [place] [phone] 04/19/2025 Elier Thompson [facility] [address] [place] [phone] 08/04/2024 Elier Thompson [facility] [address] [place] [phone] 08/10/2024 Elier Thompson Plan Of Treatment Pending [...] Insured Coverage Start Date Coverage End Date [facility] [address] [place] [address] [id number] GUIDO LOMAS Self - patient is the [...] Sciatica - pain management at [facility] Surgical History Surgery Date(Month/Year) Cholecystectomy Tonsillectomy Left foot surgery 09/2016 Pilonidal cyst removed-Dr. Browne 10/04 18 Bunions removed Nerve stimulator for sciatica pain
--- OUTSIDE RECORDS SUMMARY | 2025-06-08 11:18 | XMS_ITS | Patient Health Record ---
[facility] Address [address] [place] [address] Care Team Providers Care Livestock Caretaker Name Role Phone Cal Cole Primary Care Provider Unavailab Berenice Aparicio Unavailable [phone] Black, Brooke Unavailable [phone] Allergies Allergen (clinical drug ingredient) Drug/Non Drug [...] Duration) Notes Start Date End Date Status oxyCODONE HCl 5 MG 1 tablet as needed Orally every 6 hrs Partial Fill upon Patient Request Active Gabapentin 300 MG 1 capsule Orally Once a day; Duration: 30 day(s) Active Doxycycline Hyclate 100 MG 1 capsule Orally Once a day; Duration: 10 day(s) Active Physical Therapy . . . 2-3x/week; Duration: 3-4 weeks 11/06/2022 Not-Taking oxyCODONE HCl 5 MG 1 tablet as needed Orally every 6 hrs; Duration: 5 days Partial Fill upon Patient Request 05/05/2025 Not-Taking oxyCODONE HCl 5 MG 1 tablet as needed Orally every 6 hrs Partial Fill upon Patient Request 12/27/2024 Not-Taking oxyCODONE HCl 5 MG 1 tablet as needed Orally every 6 hrs; Duration: 3 days 09/18/2022 Not-Taking Levothyroxine Sodium 137 MCG/ML 1 mL in the morning before breakfast Orally Once a day; Duration: 30 day(s) Not-Taking Day Carbonate ER 450 MG 1 tablet at bedtime Orally Once a day; Duration: 30 day(s) Not-Taking Night Splint AFO - L1930 1 wear when at rest; Duration: 30 days Not-Taking Vitamin D3 50 MCG (2000 UT) 1 capsule Orally Once a day; Duration: 30 day(s) Not-Taking oxyCODONE HCl 5 MG 1 tablet as needed Orally every 6 hrs Partial Fill upon Patient Request 05/04/2025 Not-Taking Cephalexin 500 MG 1 capsule Orally [...] Active confirmed Vital Signs Blood pressure diastolic 80 mm Hg 06/01/2025 Height 5ft 1in in 06/06/2025 Blood pressure systolic 122 mm Hg 06/01/2025 Weight 141 lbs 06/06/2025 BMI 26.64 kg/m2 06/06/2025 Encounters Encounter Location Date Provider Diagnosis Surgery [facility] ([facility]) [address] [place] [address] 12/28/2024 [facility] [address] [place] [address] 05/04/[address] [address] 11/10/2024 Berenice Agudelo Pain in left toe(s) M79.675 ; Other hammer toe(s) (acquired), left foot M20.42 ; Arthritis of joint of lesser toe, 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 and Subluxation of metatarsophalangeal joint of toe, initial encounter S93.149A [facility] [address] 12/12/2024 Berenice Agudelo Pain in left toe(s) M79.675 ; Other hammer toe(s) (acquired), left foot M20.42 ; Arthritis of joint of lesser toe, 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 and Subluxation of metatarsophalangeal joint of toe, initial encounter S93.149A [address] [address] 01/02/2025 Berenice Hendersonaker Pain in left toe(s) M79.675 ; Other hammer toe(s) (acquired), left foot M20.42 and Arthritis of joint of lesser toe, 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 [address] 01/11/2025 Berenice Agudelo Pain in left toe(s) M79.675 ; Other hammer toe(s) (acquired), left foot M20.42 and Arthritis of joint of lesser toe, 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 [address] 01/26/2025 Berenice Agudelo Pain in left toe(s) M79.675 ; Other hammer toe(s) (acquired), left foot M20.42 and Arthritis of joint of lesser toe, 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 [address] 03/01/2025 Berenice Agudelo Pain in left toe(s) M79.675 ; Other hammer toe(s) (acquired), left foot M20.42 and Arthritis of joint of lesser toe, 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 [address] 03/08/2025 Berenice Agudelo Pain in left toe(s) M79.675 ; Other hammer toe(s) (acquired), left foot M20.42 and Arthritis of joint of lesser toe, 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 [address] 04/06/2025 Berenice Agudelo Pain in left toe(s) M79.675 ; Other hammer toe(s) (acquired), left foot M20.42 and Arthritis of joint of lesser toe, 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 [address] 04/27/2025 Berenice Agudelo Contusion of lesser toe of left foot without damage to nail, initial encounter S90.122A and Pain in left toe(s) M79.[address] [address] 05/08/2025 Berenice Agudelo Contusion of lesser toe of left foot without damage to nail, initial encounter S90.122A and Pain in left toe(s) M79.675 [facility] [address] [address] 05/22/2025 Berenice Agudelo Contusion of lesser toe of left foot without damage to nail, initial encounter S90.122A and Pain in left toe(s) M79.675 [facility] [address] [address] 06/01/2025 Berenice Agudelo Contusion of lesser toe of left foot without damage to nail, initial encounter S90.122A and Pain in left toe(s) M79.675 [facility] [address] [address] 06/06/2025 Berenice Agudelo Contusion of lesser toe of left foot without damage to nail, initial encounter S90.122A and Pain in left toe(s) M79.675 [facility] [address] [address] 11/10/2024 Brooke Black [facility] [address] [place] [address] 11/11/2024 Brooke Black [facility] [address] [address] 12/26/2024 Berenice Agudelo [facility] [address] [address] 01/10/2025 [facility] [address] [place] [address] 01/27/2025 Berenice Hendersonaker [facility] [address] [address] 02/08/2025 Berenice Hendersonaker [facility] [address] [address] 03/08/2025 Berenice Agudelo [facility] [address] [address] 04/05/2025 Berenice Agudelo [facility] [address] [place] [address] 05/04/2025 Berenice Agudelo [facility] [place] [address] [place] [address] 05/05/2025 Berenice Agudelo [facility] [place] [address] [facility] [address] [place] [address] 05/09/2025 Berenice Agudelo [facility] [place] [address] [place] [address] 06/02/2025 Berenice Agudelo Assessments Encounter Date Diagnosis (ICD [...] to nail, initial encounter (ICD-10 - S90.122A) 05/08/2025 Contusion of lesser toe of left foot without damage to nail, initial encounter (ICD-10 - S90.122A) 05/22/2025 Contusion of lesser toe of left foot without damage to nail, initial encounter (ICD-10 - S90.122A) 06/01/2025 Contusion of lesser toe of left foot without damage to nail, initial encounter (ICD-10 - S90.122A) 06/06/2025 Contusion of lesser toe of left foot without damage to nail, initial encounter (ICD-10 - S90.122A) 06/06/2025 Pain in left toe(s) (ICD-10 - M79.675) 06/01/2025 Pain in left toe(s) (ICD-10 - M79.675) 05/22/2025 Pain in left toe(s) (ICD-10 - M79.675) 05/08/2025 Pain in left toe(s) (ICD-10 - M79.675) 12/12/2024 Arthritis of joint o f lesser [...] 3V 11/19/2022 Next Appt Details Provider Name:Berenice Kay donny, 06/16/2025 01:30:00 PM, [address] [facility], [address], [place], [address], Insurance Providers Payer Name Payer Address Payer Phone Subscriber Number Group Number Insured Name Patient Relationship to Insured Coverage Start Date Coverage End Date [employer] [place] [employer]vantage [facility] [address] [place] [address] [id number] Lora Estevez Self - patient is the [...] 09/24/2022 Hammertoe Correction Left 2nd toe 2024 Incision and drainage T1 05/04/2025
== END 2025-04-18 00:01 ==
LOC: HO.MRI
PROVIDERS: PCP Physician Assistant; Visit Provider Student in an Organized Health Care Education/Training Program
DX: Z00.00 Encounter for general adult medical examination without abnormal findings (principal); S90.122A Contusion of left lesser toe(s) without damage to nail, initial encounter
CPT/HCPCS: 73718

== ENCOUNTER → 2025-04-18 07:57 | Outpatient (BNV) | payer OTHER, SELFPAY | PROVIDERS: PCP Physician Assistant; Visit Provider Radiology Diagnostic Radiology | DX: T79.2XXA Traumatic secondary and recurrent hemorrhage and seroma, initial encounter (principal) | CPT/HCPCS: 73718 ==

== ENCOUNTER 2025-05-04 10:03 | Day surgery (SDC) | payer MEDICARE, SELFPAY ==
--- OUTSIDE RECORDS SUMMARY | 2024-02-22 06:40 | XMS_ITS ---
Author Organization [facility] Address [address] [place] [address] Care Team Providers Care Channel Marketing Manager Name Role Phone Cal Cole Primary Care Provider Unavailab Elier Roass Unavailable [phone] REASON FOR VISIT screening,hx polyps Problems Problem Type SNOMED Code ICD Code Onset Dates Problem Status W/U Status Risk Notes Problem Diverticular disease of colon (632205068) Diverticulosis of large intestine without perforation or abscess without bleeding (K57.30) Active confirmed Encounters Encounter Location Date Provider Diagnosis [facility] [place] [address] [place] [phone] 02/22/2024 Elier Thompson Colon cancer scree bob Z12.11 ; Colon polyps K63.5 ; Diverticulosis of large intestine without perforation or abscess without bleeding K57.30 and Other hemorrhoids K64.8 Assessments Encounter Date Diagnosis (ICD Code) Assessment Notes Treatment Notes Treatment Clinical Notes Section Notes 02/22/2024 Colon cancer screening (ICD-10 - Z12.11) 02/22/2024 Colon polyps (ICD-10 - K63.5) 02/22/2024 Diverticulosis of large intestine without perforation or abscess without bleeding (ICD-10 - K57.30) 02/22/2024 Other hemorrhoids (ICD-10 - K64.8) Plan Of Treatment No Information Progress Notes * TIFFANY LOMASOB:[birth year] (65 yo F)Acc No.[id number]:02/22/2024 COLON WITH MAC Patient: Suzie GUIDO GAUTAM Provider: Wade Thompson MD :1960 A ge:64 Y S ex:Female Date:02/22/2024 Address:[address] [place], [place] [id number] Pcp:Cal Cole Subjective: * Chief Complaints: * S creening,hx polyps Assessment: * Assessment: 1. C olon cancer screening - Z12.11 (Primary) 2 . C olon polyps - K63.5? 3. D iverticulosis of large intestine without perforation or abscess without bleeding - K57.30 4 . O ther hemorrhoids - K64.8 Plan: * Procedure Codes: 4 5385 LESION REMOVAL COLONOSCOPY, Modifiers: PT 0529F INTRVL 3+YRS PTS CLNSCP DOCD, Modifiers: 8P 0528F RCMND FLW-UP 10 YRS DOCD, Modifiers: 1P Billing Information: * Procedure Codes: 30580 LESION REMOVAL COLONOSCOPY. Modifiers: PT 0529F INTRVL 3+YRS PTS CLNSCP DOCD. Modifiers: 8P 0528F RCMND FLW-UP 10 YRS DOCD. Modifiers: 1P * The named appointment provid er may or may not be the originator of this progress note, and it is not deemed complete until electronically signed by the appointment provider. Sign off status: Pending * Provider: Wade Thompson MD Date: Generated for Tani corrales/Gordo/Nevinitting on: 07/03/2024 04:11 PM EST
--- OUTSIDE RECORDS SUMMARY | 2024-12-28 02:30 | XMS_ITS ---
Author Organization [facility] Address [address] [place] [address] Care Team Providers Care Engineering Production Worker Name Role Phone Cal Cole Primary Care Provider Unavailab Berenice Aparicio Unavailable [phone] Encounters Encounter Location Date Provider Diagnosis Surgery [facility] ([facility] [address] [place] [phone] 12/28/2024 Berenice Agudelo Plan Of Treatment Next Appt Details Provider Name:Berenice hines, 05/04/2025 12:00:00 PM, [address] [place] [address], [phone], Progress Notes * Lora LOMAS ADOB: (65 yo F)Acc No.[id number]:12/28/2024 Patient: Suzie Lora GAUTAM Provider: Lucila Agudelo DPM :1960 A ge:64 Y S ex:Female Date:12/28/2024 Address:[address] [place] [address] Pcp:Cal Cole * Images: * The named appointment provid er may or may not be the originator of this progress note, and it is not deemed complete until electronically signed by the appointment provider. Sign off status: Pending * Provider: Lucila Agudelo DPM Date: 0 12/28/2024 Generated for Tani corrales/Gordo/Diallo on: 1 07/03/2024 04:11 PM EST
--- OUTSIDE RECORDS SUMMARY | 2025-02-08 10:00 | XMS_ITS ---
Author Organization [facility] Address [address] [place] [address] Care Team Providers Care Taste Tester Name Role Phone Cal Cole Primary Care Provider Unavailab Berenice Aparicio Unavailable [phone] Medications Medication SIG (Take, Route, Frequency, Duration) [...] Once a day; Duration: 30 day(s) Unknown [place] Carbonate ER 450 MG 1 tablet at bedtime Orally Once a day; Duration: 30 day(s) Unknown Levothyroxine Sodium 137 MCG/ML 1 mL in the morning before breakfast Orally Once a day; Duration: 30 day(s) Unknown Flexeril 10 mg Unknown Encounters Encounter Location Date Provider Diagnosis [facility] [place] [address] [place] [address] 02/08/2025 Berenice Agudelo Plan Of Treatment Next Appt Details Provider Name:Berenice Kay donny, 05/04/2025 12:00:00 PM, [address] [place] [address], [phone], Progress Notes * Lora LOMAS ADOB: (65 yo F)Acc No.[id number]:02/08/2025 Progress Notes Patient: Lora SY Provider: Lucila Agudelo DPM :1960 A ge:64 Y S ex:Female Date:02/08/2025 Address:[address] [place], [place] [phone] Pcp:Cal Cole Subjective: * Chief Complaints: * * Medical History: * Medications: T aking oxyCODONE HCl 5 MG Tablet 1 tablet as needed Orally every 6 hrs , Notes to Pharmacist: Partial Fill upon Patient Request, Unknown Flexeril , Notes to Pharmacist: 10 mg, Unknown Tamsulosin HCl 0.4 MG Capsule 1 capsule Orally Once a day , Unknown [place] Carbonate ER 450 MG Tablet Extended Release [...] 0 02/08/2025 Generated for Tani corrales/Gordo/Diallo on: 07/03/2024 04:10 PM EST
--- OUTSIDE RECORDS SUMMARY | 2025-04-19 09:20 | XMS_ITS ---
Author Organization [facility] Address [address] [facility] [address] [place] [address] Care Team Providers Care Shop Foreman Name Role Phone Cal Cole Primary Care Provider UnavailElier Boland [phone] REASON FOR VISIT Patient presents today for liver fibrosis, chronic hep c Encounters Encounter Location Date Provider Diagnosis [facility] [address] [address] 04/19/2025 Elier Thompson Plan Of Treatment No Information Progress Notes * TIFFANY LOMASOB:[birth year] (65 yo F)Acc No.[id number]:04/19/2025 Progress Notes Patient: GUIDO SY Provider: Wade Thompson MD :1960 A ge:65 Y S ex:Female Date:04/19/2025 Address:[address] [place], [place] [id number] Pcp:Cal Cole Subjective: * Chief Complaints: * P atient presents today for liver fibrosis, chronic hep c Billing Information: * Procedure Codes: * The named appointment provid er may or may not be the originator of this progress note, and it is not deemed complete until electronically signed by the appointment provider. Sign off status: Pending * Provider: Wade Thompson MD Date: 06/20/2024 Generated for Robeli ng/Faxing/eTransmitting on: 07/03/2024 04:10 PM EST
--- OUTSIDE RECORDS SUMMARY | 2025-04-27 08:45 | XMS_ITS ---
Author Organization [facility] Address [address] [place] [address] Care Team Providers Care Copywriter Name Role Phone Cal Cole Primary Care Provider Unavailab Berenice Aparicio Unavailable [phone] Allergies Allergen (clinical drug ingredient) Drug/Non Drug [...] Unknown Drug Allergy Active REASON FOR VISIT Pcp-04/14/25, Painful Toe(s) Medications Medication SIG (Take, Route, Frequency, Duration) Notes Start Date End Date Status Cephalexin 500 MG 1 capsule Orally twice a day; Duration: 10 days 10/16/2022 Not-Taking oxyCODONE HCl 5 MG 1 tablet as needed Orally every 6 hrs Partial Fill upon Patient Request 12/27/2024 Not-Taking Physical Therapy . . . 2-3x/week; Duration: 3-4 weeks 11/06/2022 Not-Taking oxyCODONE HCl 5 MG 1 tablet as needed Orally every 6 hrs; Duration: 3 days 09/18/2022 Not-Taking Walker - as directed Not-Taki ng Tamsulosin HCl 0.4 MG 1 capsule Orally Once a day; Duration: 30 day(s) Not-Taking [place] Carbonate ER 450 MG 1 tablet at bedtime Orally Once a day; Duration: 30 day(s) Not-Taking Levothyroxine Sodium 137 MCG/ML 1 mL in the morning before breakfast Orally Once a day; Duration: 30 day(s) Not-Taking Vitamin D3 50 MCG (2000 UT) 1 capsule Orally Once a day; Duration: 30 day(s) Not-Taking Night Splint AFO - L1930 1 wear when at rest; Duration: 30 days Not-Taking Flexeril 10 mg Not-Taking Cyclobenzaprine HCl 10 MG 1 tablet at bedtime as needed Orally Once a day; Duration: 30 day(s) Not-Taking Aspirin 81 MG 1 tablet Orally Once a day; Duration: 30 day(s) Not-Taking oxyCODONE HCl 5 MG 1 tablet as needed Orally every 6 hrs; Duration: 5 days Partial Fill upon Patient Request 01/27/2025 Not-Taking Social History Tobacco Use: Social History [...] Interpretation Negative Vital Signs Height 5ft1in in 04/27/2025 Weight 140 lbs 04/27/2025 BMI 26.45 kg/m2 04/27/2025 Blood pressure systolic 126 mm Hg 04/27/20 25 Blood pressure diastolic 72 mm Hg 025 Encounters Encounter Location Date Provider Diagnosis [facility] [address] [address] 04/27/2025 Berenice Agudelo Contusion of lesser toe of left foot without damage to nail, initial encounter S90.122A and Pain in left toe(s) M79.675 Assessments Encounter Date Diagnosis (ICD Code) Assessment Notes Treatment Notes Treatment Clinical Notes Section Notes 04/27/2025 Contusion of lesser toe of left foot without damage to nail, initial encounter (ICD-10 - S90.122A) 04/27/2025 Pain in left toe(s) (ICD-10 - M79.675) Plan Of Treatment Next Appt Details Follow Up: 1 Week, Reason: Provider Name:Berenice hines, 05/04/2025 12:00:00 PM, [address] [place] [address], [phone], Progress Notes * Lora LOMAS ADOB: (65 yo F)Acc No.[id number]:04/27/2025 Patient: Lora SY A Provider: Lucila Agudelo DPM :1960 A ge:65 Y S ex:Female Date:04/27/2025 Address:[address] [place] [address] Pcp:Cal Cole Subjective: * Chief Complaints: * P cp-04/14/25Painful Toe(s) * HPI: T oe pain: Nature: a yin, bruising, discoloration, swelling, tenderness, throbbing. Location: s econd digit Left foot. Duration: s remedios approximately 1 month after surgery, no injury known. Aggravated by: a ny pressure , shoes , standing/walking.? Treatments: r est/alter normal daily activity, ice, drainage. * ROS: G eneral/Constitutional: Nausea d enies. [...] enies. C ardiovascular: Pacemaker d enies. 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 W PW d enies. [...] other: alive, kidney/liver disease, diagnosed with Unspecified cerebral artery occlusion with cerebral infarction, Unspecified essential hypertension. F ather: alive, cardiovascular, asthma, stroke, diabetes. [...] dogs. Marital status: . 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 D rug/Alcohol: A SUNDAY-C [...] Capsule 1 capsule Orally Once a day [place] Carbonate ER 450 MG Tablet Extended Release [...] 1 capsule Orally Once a day Not-Taking/PRN [place] Carbonate ER 450 MG Tablet Extended Release [...] Verified] Objective: * Vitals: H t: 5ft1in, Wt:140, BMI:26.45, Shoe size: 8.5W, BP:126/72mm Hg, Ht-cm: 154.94 cm, Wt-k.5 kg. * Examination: O rthopedic: DIGITAL DEFORMITIES: R eveals pain to palpation, swelling, ecchymosis, and limited ROM medial aspect T1. N ails: NAILS are: N ail plate intact (T1 ). D ermatologic: SURGICAL/WOUND/DRESSING: C icatrix well healed CFT intact , No signs or symptoms consistent with infection , pain on palpation mass appreciated ot proximal medial second toe, using an 18 gauge the mass was noted to be a hematoma, appropriate decompression was performed and a compression dressing was applied. V ascular: DP PULSES (B): 3 /4, B/L. PT PULSES (B): 3 /4, B/L. CAPILLARY FILL TIME: i mmediate, all digits, B/L. TROPHIC CONDITION-TEXTURE/ELASTICITY/TURGOR/HAIR GROWTH (B):?normal, B/L. TEMPERTURE GRADIENT (C): n ormal, warm to cool, proximal to distal, B/L, B/L. PIGMENTATION: n ormal, B/L. G eneral Examination: GENERAL APPEARANCE: R eveals a pleasant, alert, well nourished, well-developed, well hydrated individual, who demonstrates proper attention to hygiene/body habitus, and is in no acute distress, Pt serves as own historian for office visit today. ORIENTED: p erson, place, and time. Assessment: * Assessment: 1. C ontusion of lesser toe of left foot without damage to nail, initial encounter - S90.122A? Specify :Acute problem, Complicated w/ Multiple Tx Options(4),Dx New problem, Prognosis Uncertain (4) 2 . P ain in left toe(s) - M79.675 (Primary) Plan: * Treatment: * Procedure Codes: * [...] to call the office. D igital Surgery: D igital surgery was discussed with the patient, including the risks of surgery(below), vs not having surgery (persistent pain, deformity, risk for skin ulceration/infection, loss of toe), the potential surg complications, the anesthesia, and the usual post-op course. No guarentees were given. We discussed the potential procedure complications including, but not limited to: pain, swelling, bleeding, scarring, numbness, infection, delayed/non healing, floppy/unstable/shorthened toe, recurrence, failure of the procedure, overcorrection leading to plantarflexed/downward positioned toe, recurrence, need for further surgery, as well as the possibility for loss of the toe itself. Plan for incision and drainage of Left second toe despite MRI findings given recurrent hematoma and pain. Will secure OR time and discuss with patietn accordingly. M RI: Armando iscussed and reviewed the MRI with the patient. We discussed how the findings relate to the patients symptoms/complaints. Answered any and all questions. MRI was negative however were unable to use contrast secondary to insurance issues. Screening/Special Tests: F all Risk Screening: N o falls in the past year F ALLS: Screening for Future Fall Risk Have you had any falls with injury in the past year? N o * Follow Up: 1 Week * Images: * Sign off status: Completed true * Provider: Lucila Agudelo DPM Date: 06/28/2024 Generated for Tani corrales/Gordo/Diallo on: 07/03/2024 04:10 PM EST History and Physical Notes * HPI (History of Present Illness) Category Sub-Category Detail Notes Category Not es Toe pain Nature: aching, bruising , discoloration, swelling, tenderness, throbbing Location: second digit Left fo ot Duration: since approximately 1 month after surgery, no injury known Aggravated by: any pressure , shoes , standing/walking Treatments: rest/alter normal da jenny activity, ice, drainage Examination Category Sub-Category Detail Notes Category Not es Dermatologic SURGICAL/WOUND/DRESS IN G: Cicatrix well healed CFT intact , No signs or symptoms consistent with infection , pain on palpation mass appreciated ot proximal medial second toe, using an 18 gauge the mass was noted to be a hematoma, appropriate decompression was performed and a compression dressing was applied Orthopedic DIGITAL DEFORMITIES: Reveals lisbet n to palpation, swelling, ecchymosis, and limited ROM medial aspect T1 General Examination GENERAL APPEARANCE: Reveals a pleasant, alert, well nourished, well-developed, well hydrated individual, who demonstrates proper attention to hygiene/body habitus, and is in no acute distress, Pt serves as own historian for office visit today ORIENTED: person, place, and t brooks [facility] DP PULSES (B): 3/4, B/L PT PULSES (B): 3/4, B/L CAPILLARY FILL TIME: immediate, all digi ts, B/L TEMPERTURE GRADIENT (C): normal, warm to cool, proximal to distal, B/L, B/L TROPHIC CONDITION-TEXTURE/ELASTICITY/TURGOR/HAIR GROWTH (B): normal, B/L PIGMENTATION: normal, B/L Nails NAILS are: Nail plate intact (T1 )
--- OUTSIDE RECORDS SUMMARY | 2025-05-02 16:11 | XMS_ITS | Patient Health Record ---
Author Organization [facility] Address [address] [place] [address] Care Team Providers Care Pen Ruler Operator Name Role Phone Cal Cole Primary Care Provider Unavailab Berenice Aparicio Unavailable [phone] Black, Brooke Unavailable [phone] Allergies Allergen (clinical drug ingredient) Drug/Non Drug [...] a day; Duration: 10 days 10/16/2022 Not-Taking Flexeril 10 mg Not-Taking Cyclobenzaprine HCl 10 MG 1 tablet at bedtime as needed Orally Once a day; Duration: 30 day(s) Not-Taking Tamsulosin HCl 0.4 MG 1 capsule Orally Once a day; Duration: 30 day(s) Not-Taking Aspirin 81 MG 1 tablet Orally Once a day; Duration: 30 day(s) Not-Taking [place] Carbonate ER 450 MG 1 tablet at [...] Not-Taking Walker - as directed Not-Taki ng oxyCODONE HCl 5 MG 1 tablet as needed Orally every 6 hrs; Duration: 5 days Partial Fill upon Patient Request 01/27/2025 Not-Taking Immunizations Vaccine Route Administration Date Status [...] foot (M20.11) Active confirmed Decision for Hospitalizati on/[facility]/Major surgery (5),Rx drug management Problem Information temporarily [...] Active confirmed Vital Signs Blood pressure diastolic 72 mm Hg 04/27/2025 Height 5ft1in in 04/27/2025 Blood pressure systolic 126 mm Hg 04/27/2025 Weight 140 lbs 04/27/2025 BMI 26.45 kg/m2 04/27/2025 Encounters Encounter Location Date Provider Diagnosis Surgery [facility] ([facility]IAN[facility]) [address] [place] [phone] 12/28/2024 Berenice Hendersonaker [address] [address] 11/10/2024 Berenice Agudelo Pain in left toe(s) M79.675 ; Other hammer toe(s) (acquired), left foot M20.42 ; Arthritis of joint of lesser toe, 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 and Subluxation of metatarsophalangeal joint of toe, initial encounter S93.149A [address] [address] 12/12/2024 Berenice Agudelo Pain in left toe(s) M79.675 ; Other hammer toe(s) (acquired), left foot M20.42 ; Arthritis of joint of lesser toe, 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 and Subluxation of metatarsophalangeal joint of toe, initial encounter S93.149A [address] [address] 01/02/2025 Berenice Agudelo Pain in left toe(s) M79.675 ; Other hammer toe(s) (acquired), left foot M20.42 and Arthritis of joint of lesser toe, 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 [address] 01/11/2025 Berenice Agudelo Pain in left toe(s) M79.675 ; Other hammer toe(s) (acquired), left foot M20.42 and Arthritis of joint of lesser toe, 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 [address] 01/26/2025 Berenice Agudelo Pain in left toe(s) M79.675 ; Other hammer toe(s) (acquired), left foot M20.42 and Arthritis of joint of lesser toe, 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 [address] 03/01/2025 Berenice Agudelo Pain in left toe(s) M79.675 ; Other hammer toe(s) (acquired), left foot M20.42 and Arthritis of joint of lesser toe, 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 [address] 03/08/2025 Berenice Agudelo Pain in left toe(s) M79.675 ; Other hammer toe(s) (acquired), left foot M20.42 and Arthritis of joint of lesser toe, 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 [address] 04/06/2025 Berenice Agudelo Pain in left toe(s) M79.675 ; Other hammer toe(s) (acquired), left foot M20.42 and Arthritis of joint of lesser toe, 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 [address] 04/27/2025 Berenice Agudelo Contusion of lesser toe of left foot without damage to nail, initial encounter S90.122A and Pain in left toe(s) M79.[address] [address] 03/08/2025 Berenice Agudelo [address] [address] 11/10/2024 [facility] [address] [address] 11/11/[address] [address] 12/26/2024 Berenice Agudelo [address] [address] 01/10/2025 Berenice Agudelo [facility] [place] [address] [facility] [address] [place] [address] 01/27/2025 Berenice Agudelo [facility] [place] [address] [place] [address] 02/08/2025 Berenice Agudelo [facility] [address] 04/05/2025 Berenice Agudelo Assessments Encounter Date Diagnosis [...] Pain in left toe(s) (ICD-10 - M79.675) 04/27/2025 Contusion of lesser toe of left foot without damage to nail, initial encounter (ICD-10 - S90.122A) 12/12/2024 Arthritis of joint o f lesser toe, left (ICD-10 - M19.072) 04/27/2025 Pain in left toe(s) (ICD-10 - [...] 11/19/2022 Next Appt Details Provider Name:Berenice hines, 05/04/2025 12:00:00 PM, [address] [place], [address], Insurance Providers Payer Name Payer Address Payer Phone Subscriber Number Group Number Insured Name Patient Relationship to Insured Coverage Start Date Coverage End Date [employer] [place] [employer] [address] [place], [place] [id number] Lora Estevez Self - patient is the [...]
--- OUTSIDE RECORDS SUMMARY | 2025-05-02 16:11 | XMS_ITS | Patient Health Record ---
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 Name Role Phone Cal Cole Primary Care Provider Elier Davis [phone] Allergies Allergen (clinical drug ingredient) Drug/Non Drug [...] the instructions; Duration: 30 days 08/11/2024 Active [place] Carbonate 450mg Active Levothyroxine Sodium 0.125mg Active [...] Problem Screening for malignant neoplasm of colon (410595898) Encounter for screening for malignant neoplasm of colon (Z12.11) Active confirmed Problem History of adenomatous polyp of colon (870854127) History of adenomatous polyp of colon (Z86.010) Active confirmed Problem Diarrhea (70749943) Diarrhea (R19.7) Active con firmed Problem Diverticular disease of colon (128747576) Diverticulosis of large intestine without perforation or abscess without bleeding (K57.30) Active confirmed Problem Chronic hepatitis C (760545177) Chronic hepatitis C without hepatic coma (B18.2) Active confirmed Problem History of gastrointestinal disease (172031202) History of chronic hepatitis (Z87.19) Active confirmed Problem Hepatic fibrosis (disorder) (62438459) Liver fibrosis (K74.00) Active confirmed Encounters Encounter Location Date Provider Diagnosis [facility] [address] [place] [phone] 04/19/2025 Elier Thompson [facility] [address] [place] [address] 08/04/2024 Elier Thompson [facility] [address] [place] [address] 08/10/2024 Elier Thompson Plan Of Treatment Pending [...] ABD 03/13/2020 HCV LIVER FIBROSIS, FIBRO TEST HCVVL REFLEX GENOTYPE REFLEX NS5A 2017 STOOL WBC 08/25/2023 C DIFFICILE RFLX PCR 08/25/2023 Prothrombin Time INR 11/27/2023 Calprotectin, Fecal 08/25/2023 US abdomen comp w elastography GI PANEL 08/25/2023 Future Test Test Name Order Date FLEXIBLE SIGMOIDOSCOPY, DIAGNOSTIC 11/05 UPPER GI ENDOSCOPY 11/06/2011 COLONOSCOPY 03/25/2018 COLONOSCOPY 11/27/2023 Insurance Providers Payer Name Payer Address Payer Phone Subscriber Number Group Number Insured Name Patient Relationship to Insured Coverage Start Date Coverage End Date [facility] [address] [place] [address] [id number] GUIDO LOMAS Self - patient is the insured Medical (General) History Medical History History ICD Code Fibromyalgia Bipolar disease Hypothyroidism Denies [place],DM,CVA,Lung disease,renal dise ase IBS with diarrhea--neg. colo [...] adenoma removed Sciatica - pain management at [facility] Surgical History Surgery Date(Month/Year) Cholecystectomy Tonsillectomy Left foot surgery 09/2016 Pilonidal cyst removed-Dr. Browne 10/04 18 Bunions removed Nerve stimulator for sciatica pain
[2025-05-03 14:46] VITALS: BMI 25.6
[2025-05-04 10:08] VITALS: BP 125/74; PULSE 83; RESP 16; TEMP 36.4; O2SAT 96; BMI 25.7
[2025-05-04] MEDS: Lactated Ringers 1,000 ML 100 ML IVCONT (10:37)
--- NOTE | 2025-05-04 11:56 | P.HPOP_ITS ---
History of Present Illness History of Present Illness Date of Service: 05/04/25 Chief complaint: Nontraumatic hematoma of soft tissue Narrative: Lora Estevez is a 65 year old female Review of Systems Review of Systems: Yes all other systems are reviewed and are negative Musculoskeletal: Musculoskeletal: Reports joint swelling Comments: toe pain and swelling, left second digit PMFSH Past Medical History Medical History (Updated 04/11/25 @ 10:35 by Cal Cole PA-C) Annual physical exam Screening for diabetes mellitus (DM) Breast pain, left Pre-op chest exam Screening for hypercholesterolemia Screening for hyperlipidemia Screening for diabetes mellitus (DM) Osteoarthritis Bipolar disorder Low back pain Asthma Hx of hepatitis C Hyperparathyroidism Vitamin D deficiency Multinodular thyroid Sacroiliac joint dysfunction Chronic pain syndrome AXEL positive Family History Family History Father Asthma CVD (cardiovascular disease) Stroke Diabetes Mother Healthy adult Sister Lupus Surgical History Surgical History History of hammer toe correction History of bunionectomy History of carpal tunnel release History of back surgery Hx of prior ablation treatment History of excision of pilonidal cyst History of foot surgery History of appendectomy History of laparoscopy History of cholecystectomy History of tonsillectomy History of section Social History Social History Household Members: Family Housing: House Are you a primary healthcare network consultant to a significant other at home: No Do you presently have visiting nurse or other home services: No Alcohol intake: never Patient Tobacco Use Status: Former Tobacco user Tobacco use type: Cigarette Years Smoked: 3 quit age 18 e-Cigarette/Vaping Use: Never Used Second Hand Smoke Exposure: Yes Have you been hit, kicked, punched, or otherwise hurt by someone within the past year? 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 Cognitive needs: No Hearing needs: No Vision needs: Yes Meds Allergies Allergy/AdvReac Type Severity Reaction Status Date / Time oxcarbazepine (From Allergy Severe Hives,itching,rash, Verified 04/11/25 10:22 Trileptal) double vision codeine Allergy Mild Itching Verified 04/11/25 10:22 azithromycin AdvReac Intermediate Gastrointestinal Verified 05/04/25 10:28 Upset oral steroid Allergy Mild suicidal Uncoded 04/11/25 10:22 Active Medications: Current Medications Lactated Ringer's (Lr) 1,000 mls @ 100 mls/hr IVCONT .Q10H HOMERO Last Admin: 05/04/25 10:37 Dose: 100 mls/hr Physical Exam 2 Vital Signs: Vital Signs: Last Vital Signs Temp 97.5 F 05/04/25 10:08 Pulse 83 05/04/25 10:08 Resp 16 05/04/25 10:08 BP 125/74 05/04/25 10:08 Pulse Ox 96 05/04/25 10:08 O2 Del Method Room Air 05/04/25 10:08 BMI result Body Mass Index 25.7 Results Labs Labs: All other labs normal. Quality Stroke Does the patient have a stroke diagnosis?: No VTE Prior VTE?: No VTE Risk Level:: Surgical - low VTE Device Contraindication: N/A - Device Ordered VTE Drug Contraindication: N/A - Med Ordered Procedures Date of Service Date of Service: 05/04/25
--- NOTE | 2025-05-04 12:05 | P.CONAN_ITS ---
Documented by User: Ruthann Meyer NP 05/03/25 08:22 HPI - Anesthesia Eval Consult details Narrative: 65yo F for Left Incision and Drainage on the 2nd Toe Medically optimized per PCP PMF Active Problems Active Problems: All Active Problems Insomnia (Acute) Asthma (Acute) Hammertoe of right foot (Acute) Pre-op evaluation (Acute) Left wrist pain (Acute) Hammer toe of right foot (Acute) Annual physical exam (Acute) Screening for diabetes mellitus (DM) (Acute) Breast pain, left (Acute) Spastic bladder (Acute) Right kidney mass (Acute) Abscess of upper eyelid (Acute) Hordeolum externum right eye, unspecified eyelid (Acute) GERD (gastroesophageal reflux disease) (Acute) BPPV (benign paroxysmal positional vertigo) (Acute) Bipolar disorder (Acute) Urinary frequency (Acute) Systolic murmur (Acute) Hypothyroidism (Acute) Bilateral bunions (Acute) Osteoarthritis of hands, bilateral (Acute) Encounter for annual routine gynecological examination (Acute) Hyperparathyroidism (Acute) Vitamin D deficiency (Acute) Multinodular thyroid (Acute) Sacroiliac joint dysfunction (Acute) Chronic pain syndrome (Acute) Past Medical History Medical History (Updated 04/11/25 @ 10:35 by Cal Cole PA-C) Annual physical exam Screening for diabetes mellitus (DM) Breast pain, left Pre-op chest exam Screening for hypercholesterolemia Screening for hyperlipidemia Screening for diabetes mellitus (DM) Osteoarthritis Bipolar disorder Low back pain Asthma Hx of hepatitis C Hyperparathyroidism Vitamin D deficiency Multinodular thyroid Sacroiliac joint dysfunction Chronic pain syndrome AXEL positive Family History Family History Father Asthma CVD (cardiovascular disease) Stroke Diabetes Mother Healthy adult Sister Lupus Family history of problems with anesthesia: No Surgical History Surgical History History of hammer toe correction History of bunionectomy History of carpal tunnel release History of back surgery Hx of prior ablation treatment History of excision of pilonidal cyst History of foot surgery History of appendectomy History of laparoscopy History of cholecystectomy History of tonsillectomy History of section History of Problems with Anesthesia: No Social History Social History Household Members: Family Housing: House Are you a primary in home caregiver to a significant other at home: No Do you presently have visiting nurse or other home services: No Alcohol intake: never Patient Tobacco Use Status: Former Tobacco user Tobacco use type: Cigarette Years Smoked: 3 quit age 18 e-Cigarette/Vaping Use: Never Used Second Hand Smoke Exposure: Yes Have you been hit, kicked, punched, or otherwise hurt by someone within the past year? 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 Cognitive needs: No Hearing needs: No Vision needs: Yes Meds Allergies Allergy/AdvReac Type Severity Reaction Status Date / Time oxcarbazepine (From Allergy Severe Hives,itching,rash, Verified 04/11/25 10:22 Trileptal) double vision codeine Allergy Mild Itching Verified 04/11/25 10:22 azithromycin AdvReac Intermediate Gastrointestinal Verified 05/04/25 10:28 Upset oral steroid Allergy Mild suicidal Uncoded 04/11/25 10:22 Exam Pertinent Lab Results Pertinent Lab Results: Laboratory Tests 04/11/25 10:49 WBC 11.8 H Hgb 13.4 Hct 41.0 Plt Count 312 Sodium 139 Potassium 3.9 Chloride 109 H Carbon Dioxide 26 BUN 11 Creatinine 0.94 Narrative Narrative: EKG 03/2025 Vent. Rate : 75 BPM Atrial Rate : 75 BPM P-R Int : 168 ms QRS Dur : 76 ms QT Int : 362 ms P-R-T Axes : 66 50 52 degrees QTcB Int : 404 ms Normal sinus rhythm Normal ECG When compared with ECG of 28-Sep-2018 13:11, No significant change was found Assessment and Plan Final Anesthetic Review Family History of Problems with Anesthesia: No History of Problems with Anesthesia: No Documented by User: Mimi Denise DO 05/04/25 12:38 [facility] Past Medical History Medical History (Updated 04/11/25 @ 10:35 by Cal Cole PA-C) Annual physical exam Screening for diabetes mellitus (DM) Breast pain, left Pre-op chest exam Screening for hypercholesterolemia Screening for hyperlipidemia Screening for diabetes mellitus (DM) Osteoarthritis Bipolar disorder Low back pain Asthma Hx of hepatitis C Hyperparathyroidism Vitamin D deficiency Multinodular thyroid Sacroiliac joint dysfunction Chronic pain syndrome AXEL positive Family History Family History Father Asthma CVD (cardiovascular disease) Stroke Diabetes Mother Healthy adult Sister Lupus Family history of problems with anesthesia: No Surgical History Surgical History History of hammer toe correction History of bunionectomy History of carpal tunnel release History of back surgery Hx of prior ablation treatment History of excision of pilonidal cyst History of foot surgery History of appendectomy History of laparoscopy History of cholecystectomy History of tonsillectomy History of section History of Problems with Anesthesia: No Social History Social History Household Members: Family Housing: House Are you a primary in home caregiver to a significant other at home: No Do you presently have visiting nurse or other home services: No Alcohol intake: never Patient Tobacco Use Status: Former Tobacco user Tobacco use type: Cigarette Years Smoked: 3 quit age 18 e-Cigarette/Vaping Use: Never Used Second Hand Smoke Exposure: Yes Have you been hit, kicked, punched, or otherwise hurt by someone within the past year? 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 Cognitive needs: No Hearing needs: No Vision needs: Yes Meds Allergies Allergy/AdvReac Type Severity Reaction Status Date / Time oxcarbazepine (From Allergy Severe Hives,itching,rash, Verified 04/11/25 10:22 Trileptal) double vision codeine Allergy Mild Itching Verified 04/11/25 10:22 azithromycin AdvReac Intermediate Gastrointestinal Verified 05/04/25 10:28 Upset oral steroid Allergy Mild suicidal Uncoded 04/11/25 10:22 Exam Exam Date and Time: 05/04/25 1205 Height,Weight and Vital Signs: Height 5 ft 2 in Weight 63.8 kg Vital Signs Temperature 97.5 F 05/04/25 10:08 Pulse Rate 83 05/04/25 10:08 Respiratory Rate 16 05/04/25 10:08 Blood Pressure 125/74 05/04/25 10:08 Pulse Oximetry 96 05/04/25 10:08 Oxygen Delivery Method Room Air 05/04/25 10:08 Temperature 97.5 F 05/04/25 10:08 Pulse Rate 83 05/04/25 10:08 Respiratory Rate 16 05/04/25 10:08 Blood Pressure 125/74 05/04/25 10:08 Pulse Oximetry 96 05/04/25 10:08 Oxygen Delivery Method Room Air 05/04/25 10:08 Airway Mallampati Class: I TM Dist: >3cm Neck ROM: Full Loose/Missing/Broken Teeth: No (patient denies any loose or broken teeth) Heart: S1S2 Lungs: CTAB Assessment and Plan Assessment Anesthesia Assessment: Anesthesia Plan Discussed and Chart Reviewed Final Anesthetic Review Family History of Problems with Anesthesia: No History of Problems with Anesthesia: No NPO: Yes ASA Class: II Final Preanesthetic Review: No Changes in Pt Med Stat, Meds/Allgs Chart Reviewed, Consent Obtained/Reviewed and Anes Risks/Benef Reviewed Patient Risk: Low Procedure Risk: Low Anesthetic Plan Anesthetic Plan: MAC: and Agree w/ Assess. and Plan Disposition: Standard PACU
--- NOTE | 2025-05-04 12:14 | P.HPOP_ITS ---
History of Present Illness History of Present Illness Date of Service: 05/04/25 Chief complaint: Nontraumatic hematoma of soft tissue Narrative: Lora Estevez is a 65 year old female here for incision and drainage, left second digit. No changes since last visit. Proceed to OR today 05/04 [facility] Past Medical History Medical History (Updated 04/11/25 @ 10:35 by Cal Cole PA-C) Annual physical exam Screening for diabetes mellitus (DM) Breast pain, left Pre-op chest exam Screening for hypercholesterolemia Screening for hyperlipidemia Screening for diabetes mellitus (DM) Osteoarthritis Bipolar disorder Low back pain Asthma Hx of hepatitis C Hyperparathyroidism Vitamin D deficiency Multinodular thyroid Sacroiliac joint dysfunction Chronic pain syndrome AXEL positive Family History Family History Father Asthma CVD (cardiovascular disease) Stroke Diabetes Mother Healthy adult Sister Lupus Surgical History Surgical History History of hammer toe correction History of bunionectomy History of carpal tunnel release History of back surgery Hx of prior ablation treatment History of excision of pilonidal cyst History of foot surgery History of appendectomy History of laparoscopy History of cholecystectomy History of tonsillectomy History of section Social History Social History Household Members: Family Housing: House Are you a primary emergency care tech to a significant other at home: No Do you presently have visiting nurse or other home services: No Alcohol intake: never Patient Tobacco Use Status: Former Tobacco user Tobacco use type: Cigarette Years Smoked: 3 quit age 18 e-Cigarette/Vaping Use: Never Used Second Hand Smoke Exposure: Yes Have you been hit, kicked, punched, or otherwise hurt by someone within the past year? 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 Cognitive needs: No Hearing needs: No Vision needs: Yes Meds Allergies Allergy/AdvReac Type Severity Reaction Status Date / Time oxcarbazepine (From Allergy Severe Hives,itching,rash, Verified 04/11/25 10:22 Trileptal) double vision codeine Allergy Mild Itching Verified 04/11/25 10:22 azithromycin AdvReac Intermediate Gastrointestinal Verified 05/04/25 10:28 Upset oral steroid Allergy Mild suicidal Uncoded 04/11/25 10:22 Active Medications: Current Medications Lactated Ringer's (Lr) 1,000 mls @ 100 mls/hr IVCONT .Q10H HOMERO Last Admin: 05/04/25 10:37 Dose: 100 mls/hr Physical Exam Vital Signs: Vital Signs: Last Vital Signs Temp 97.5 F 05/04/25 10:08 Pulse 83 05/04/25 10:08 Resp 16 05/04/25 10:08 BP 125/74 05/04/25 10:08 Pulse Ox 96 05/04/25 10:08 O2 Del Method Room Air 05/04/25 10:08 BMI result Body Mass Index 25.7 Const: General: cooperative, healthy appearing, comfortable and no acute distress HEENT: Head: Yes normal to inspection Ears: hearing grossly normal bilaterally Resp: Effort & Inspection: normal respiratory effort Auscultation: clear to auscultation bilaterally Cardio: Rate: regular rate Rhythm: regular rhythm Extrem: General: Yes normal to inspection Results Labs Labs: All other labs normal. Quality Stroke Does the patient have a stroke diagnosis?: No VTE Prior VTE?: No VTE Risk Level:: Surgical - low VTE Device Contraindication: N/A - Device Ordered VTE Drug Contraindication: N/A - Med Ordered Procedures Date of Service Date of Service: 05/04/25
[2025-05-04 12:54] VITALS: BP 88/51; PULSE 66; RESP 12; TEMP 36.5; O2SAT 99
[2025-05-04 13:09] VITALS: BP 90/47; PULSE 63; RESP 16; O2SAT 95
[2025-05-04 13:24] VITALS: BP 98/49; PULSE 65; RESP 16; O2SAT 96
[2025-05-04 13:39] VITALS: BP 92/58; PULSE 62; RESP 16; O2SAT 96
[2025-05-04 13:55] VITALS: BP 100/62; PULSE 67; RESP 16; TEMP 36.1; O2SAT 96
--- NOTE | 2025-05-04 14:01 | P.BOP_ITS ---
Brief Operative Note Date of Service: 05/04/25 Pre-op diagnosis: Hematoma, Left second toe Post-op diagnosis: other (SOft tissue mass , left second toe) Procedure: Excision of soft tissue mass, left second toe Implants: none Surgeon: Berenice Agudelo DPM Was an Organizational Development Manager used for this Procedure?: No Estimated blood loss (mL): 3 Tourniquet time (min): 6 Pathology: other (Soft tissue mass sent to surgical pathology) Condition: stable Disposition: same day
--- NOTE | 2025-05-04 14:03 | W.PM.OPN ---
Operative Note Operative Note Date of Service: 05/04/25 Narrative: Patient was placed on the operating table in supine position. Left foot was scrubbed prepped and draped in the usual sterile fashion. Attention was directed to the Left second digit where there was a known hematoma. An incision was made to the proximal medial aspect of the left second toe. The incision was deepened through subcutaneous tissue with care to identify and retract all vital neurovascular structures. A soft tissue mass was appreciated and carefully dissected from the left second toe. This was then passed off the field to be sent to surgical pathology as soft tissue mass left foot. The surgical site was then thoroughly irrigated with sterile normal saline. The subcutaneous tissue was approximated with 3-0 vicryl. The skin was approixmated with 4-0 nylon. CFT was intact to the left foot. Total tourniquet time was 6 minutes.
== END 2025-05-04 14:42 | disposition home or self-care (01) ==
PROVIDERS: PCP Physician Assistant; Visit Provider Student in an Organized Health Care Education/Training Program
PROC: (CPT 10140; principal; 2025-05-04 12:00)
DX: M79.81 Nontraumatic hematoma of soft tissue (principal); M79.675 Pain in left toe(s); M19.072 Primary osteoarthritis, left ankle and foot; G89.4 Chronic pain syndrome; R76.0 Raised antibody titer; F31.9 Bipolar disorder, unspecified; E03.9 Hypothyroidism, unspecified; Z86.19 Personal history of other infectious and parasitic diseases; J45.909 Unspecified asthma, uncomplicated; Z79.899 Other long term (current) drug therapy; Z98.890 Other specified postprocedural states
CPT/HCPCS: 10140; 88307; J0131; J0665; J0690; J1100; J2003; J2250; J2704; J3010